=== PATIENT | female | born 1965 | race Caucasian/White ===

== ENCOUNTER → 2018-01-25 | Outpatient (CLI) | payer BC ==
--- NOTE | 2018-01-25 09:46 | MR ---
EXAMINATION TYPE: MR lumbar spine wo con DATE OF EXAM: 01/25/2018 COMPARISON: 03/18/2015 HISTORY: Low back pain TECHNIQUE: T1 and T2 axial and sagittal images of the lumbar spine are submitted. FINDINGS: There is artifact on the axial images which limits assessment of signal within the spinal c ord. Spinal cord appears to terminate at the level T12-L1. Small vertebral body hemangioma of L1 is m inimally noted. Sagittal images demonstrate no definite abnormal signal within the spinal cord. At T11-T12 there is degenerative disc disease and sagittal disc bulging. At T12-L1 there is no disc herniation or canal stenosis. At L1-2 there is At L1-L2 there is hypertrophic change of the facets. There is no disc herniation or canal stenosis. At L2-3 there is mild hypertrophic change of the facets. No canal stenosis or disc herniation. Neural foramina patent. At L3-4 there is hypertrophic change of the facets. No disc herniation or canal stenosis. No foramina l encroachment. Mild circumferential disc bulging. At L4-5 there is moderate degenerative disc disease with circumferential disc bulging and facet arthr opathy. No canal stenosis or focal herniation. Disc bulging slightly greater to the left. Findings st able. At L5-S1 there is degenerative disc disease with facet arthropathy. No disc herniation or canal steno sis. Neural foramina remain patent. There is an annular tear. Previously noted disc bulging has impro robert. IMPRESSION: 1. Moderate degenerative disc disease T11-T12, L4-5 and L5-S1. Mild progression at L4-5 relative to t he previous exam. 2. Multilevel facet arthropathy with no significant foraminal encroachment. 3. Mild circumferential disc bulging at multiple levels with no canal stenosis. The previously noted disc protrusion at L5-S1 appears improved relative to the previous exam.
--- NOTE | 2018-01-25 10:07 | MR ---
EXAMINATION TYPE: MR brain wo/w con DATE OF EXAM: 01/25/2018 COMPARISON: 01/24/2015 HISTORY: Seizures TECHNIQUE: Multiplanar, multisequence images of the brain and brainstem is performed without and with IV contras t, utilizing 7 mL intravenous Gadavist . FINDINGS: There is a mixed area of abnormal signal involving the left frontal lobe measuring approximately 2 cm in greatest axis. It does appear to be faint linear enhancement internally. No midline shift. Periventricular abnormal signal in the white matter seen with multiple focal areas of abnormal signal totally in number of 15. No lesions perpendicular to ventricular system. No enhancing lesions. No callosal lesions. Mild generalized degenerative change. Craniocervical junction is maintained. Sella turcica has a normal appearance. There are changes of ch ronic sinusitis. Punctate areas of abnormal signal involving the basal ganglia most likely related to prominent Vircho w-Jered spaces. Tiny lacunar remote infarctions not excluded. Physician's office immediately notified of findings by telephone. IMPRESSION: 1. There is a 2 cm left frontal mixed signal intensity lesion with very minimal surrounding edema. Pa ttern is most typical of a 2 cm intraparenchymal hemorrhage. The chronicity is likely subacute . Ther e is some very minimal central enhancement. Most likely related to a intraparenchymal hemorrhage. Hem orrhagic neoplasm not entirely excluded but felt less likely. Follow to resolution to exclude other e tiologies including hemorrhagic neoplasm. 2. Degenerative and nonspecific white matter changes.
== END | disposition home or self-care (01) ==
LOC: RADMRIMAIN 08:11
PROVIDERS: ATTEND Psychiatry & Neurology Neurology
DX: M51.26 Other intervertebral disc displacement, lumbar region (principal); M51.37 Other intervertebral disc degeneration, lumbosacral region; M46.87 Other specified inflammatory spondylopathies, lumbosacral region; G93.9 Disorder of brain, unspecified; G31.9 Degenerative disease of nervous system, unspecified
CPT/HCPCS: 70553; 72148; A9581

== ENCOUNTER → 2018-01-25 | Outpatient (CLI) | payer BC ==
--- NOTE | 2018-01-25 11:45 | CT ---
EXAMINATION TYPE: CT brain wo con DATE OF EXAM: 01/25/2018 COMPARISON: 01/24/2015 HISTORY: Intraparenchymal hemorrhage CT DLP: 999.80 mGycm. Automated Exposure Control for Dose Reduction was Utilized. TECHNIQUE: CT scan of the head is performed without contrast. FINDINGS: There is a focal area of hypointensity within the left frontal lobe with no focal intracran ial hemorrhage. Slight hyperattenuation peripherally relates to apposition of the gyri as there is ma ss effect with sulcal effacement. One corresponded to the MRI finding this raises suspicion for a vas cular anomaly such as developmental venous anomaly or arterial vascular malformation. This does not a ppear to be present on the exam of 01/24/2015 No suspicious extra-axial fluid collection. Old lacunar injury prominent perivascular spaces seen at the level of the right inferior basal ganglia. The ventr icles and sulci are within normal limits in size. The globes are intact and the visualized sinuses a re clear. IMPRESSION: The previously seen left frontal lobe subcortical abnormality on the prior MRI demonstrat es no acute intracranial hemorrhage and is suspicious for vascular anomaly such as a developmental ve nous anomaly or arterial vascular malformation.
== END | disposition home or self-care (01) ==
LOC: RADCTMAIN 11:01
PROVIDERS: ATTEND Psychiatry & Neurology Pain Medicine
DX: I61.8 Other nontraumatic intracerebral hemorrhage (principal)
CPT/HCPCS: 70450

== ENCOUNTER 2018-07-29 07:44 | Emergency (ER) | payer BC ==
--- NOTE | 2018-07-29 08:05 | ED ---
General Adult HPI - General Chief complaint: Neuro Symptoms/Deficit Stated complaint: blurred vision, headache Time Seen by Provider: 07/29/18 07:55 Source: patient, RN notes reviewed, old records reviewed Mode of arrival: wheelchair Limitations: no limitations - History of Present Illness Initial comments: 52-year-old female presenting for evaluation of left occipital headache and double vision. Patient has history of intracranial hemorrhage and ruptured aneurysm. This occurred approximately one year ago. She states her symptoms today are similar to her previous hemorrhagic stroke. Patient is not on any blood thinners, no aspirin. She had no surgical intervention for her previous CVA, she states it resolves without treatment. Symptoms began at approximately 3:30 AM this morning. She was evaluated at 8 AM. She waited until her awoke to come to the emergency department. She also reports some gait instability. Denies any focal numbness or weakness. Double vision depends on her angle of vision. And she is complaining of moderate to severe left occipital headache. - Related Data Home Medications Medication Instructions Recorded Confirmed Cholecalciferol [Vitamin D3] 1,000 unit PO DAILY 06/19/14 07/29/18 traMADol HCL [Ultram] 50 mg PO Q6HR PRN 08/22/16 07/29/18 Acetaminophen [Tylenol] 500 mg PO Q4-6H PRN 07/29/18 07/29/18 Ascorbic Acid [Vitamin C] 500 mg PO DAILY 07/29/18 07/29/18 Lacosamide [Vimpat] 200 mg PO DAILY 07/29/18 07/29/18 Magnesium Oxide [Cramer] 500 mg PO DAILY 07/29/18 07/29/18 Multivit-Min/Iron/Folic/Lutein 1 tab PO DAILY 07/29/18 07/29/18 [Centrum Silver Women Tablet] Olopatadine HCl 1 - 2 drop BOTH EYES Q8H 07/29/18 07/29/18 Topiramate [Topamax] 25 mg PO DAILY 07/29/18 07/29/18 Previous Rx's Medication Instructions Recorded Pantoprazole [Protonix] 40 mg PO DAILY #30 tablet. 01/27/16 Allergies Allergy/AdvReac Type Severity Reaction Status Date / Time No Known Allergies Allergy Verified 07/29/18 11:26 Review of Systems ROS Statement: Those systems with pertinent positive or pertinent negative responses have been documented in the HPI. ROS Other: All systems not noted in ROS Statement are negative. Past Medical History Past Medical History: Asthma, CVA/TIA, Hypertension, Pneumonia Additional Past Medical History / Comment(s): 01-22-16 C/O SKIN DISCOLORATION( JAUNDICE),ABD PAIN/DISTENTION, LEG EDEMA AND 20 POUND WT GAIN IN 2 WEEKS.CLINICAL IMPRESSION :ACUTE LIVER FAILURE. OTHER PAST MEDICAL HX INCLUSED UTI'S,ARTHRITIS, KIDNEY STONES ,OCC HEART BURN,IN AUG 2015 WENT TO [facility] C/O CHEST PAIN-TESTING IN EC NEG.SINUS PROBLES, HEMORROIDS/CONSTIPATION-LAST BM TODAY(01-22-16 SMALL HARD STATED HAD STREAK OF BLOOD ) History of Any Multi-Drug Resistant Organisms: None Reported Past Surgical History: Section, Tonsillectomy Additional Past Surgical History / Comment(s): X2 C-SECTIONS, WHEN AGE 7 HAD A SCOPE DONE -TOLD SHE HAD A NERVOUS STOMACH Past Anesthesia/Blood Transfusion Reactions: No Reported Reaction Additional Past Anesthesia/Blood Transfusion Reaction / Comment(s): CLAUSTERPHOBIA Past Psychological History: No Psychological Hx Reported Smoking Status: Former smoker Past Alcohol Use History: Daily Past Drug Use History: None Reported - Past Family History Father Additional Family Medical History / Comment(s): [employer] Mother Family Medical History: Coronary Artery Disease (CAD), Diabetes Mellitus, Hypertension, Pneumonia, Thyroid Disorder Additional Family Medical History / Comment(s): GOUT,X3 STENTS General Exam Limitations: no limitations General appearance: alert, in no apparent distress Head exam: Present: atraumatic, normocephalic Eye exam: Present: normal appearance, PERRL, EOMI, nystagmus (Mild horizontal nystagmus) Neck exam: Present: normal inspection Respiratory exam: Present: normal lung sounds bilaterally. Absent: respiratory distress Cardiovascular Exam: Present: regular rate, normal rhythm GI/Abdominal exam: Present: soft. Absent: distended, tenderness Extremities exam: Present: normal inspection, normal capillary refill. Absent: pedal edema Neurological exam: Present: alert, oriented X3, other (Finger-nose is normal bilaterally, normal tyna-bp-vssa, no ataxia. ). Absent: CN II-XII intact ( Patient is variable double vision, no appreciated palsy noted in the extraocular muscles.), motor sensory deficit Psychiatric exam: Present: normal affect, normal mood Skin exam: Present: warm, dry, intact. Absent: cyanosis, diaphoretic Course Vital Signs 07/29/18 07/29/18 07/29/18 07:46 09:00 09:55 Temperature 98.0 F Pulse Rate 104 H 92 96 Respiratory 20 18 18 Rate Blood Pressure 174/109 142/91 133/85 O2 Sat by Pulse 97 97 97 Oximetry 07/29/18 11:42 Temperature Pulse Rate 90 Respiratory 16 Rate Blood Pressure 118/70 O2 Sat by Pulse 96 Oximetry EKG Findings - EKG Comments: EKG Findings:: EKG: Sinus tachycardia, rate of 102, W[place] interval 170, QRS duration 92, QT 360, QTC 469 Medical Decision Making - Medical Decision Making 52-year-old female presenting with headache, and double vision. On exam patient does not have any focal neurological findings. Her extraocular motions are intact. No cranial nerve palsy. Given the patient's history, head CT is obtained which shows a left frontal abnormality which was seen on previous imaging. No hemorrhage. CT angiography is obtained with no acute abnormality. CBC within normal limits, CMP does reveal some hypokalemia which is replaced in the emergency department. Patient has chronic hyperbilirubinemia which is improved from baseline. Case discussed with the patient's neurologist who is familiar with the patient Dr. Masterson, he believes visual disturbances may be related to headache. Recommends headache treatment. Patient is given headache cocktail in the emergency department with improvement in her headache, headache resolved on reevaluation, vision is normal. She is reevaluated, neurologic exam remains nonfocal, she has normal balance, no ataxia, Romberg is negative. She feels comfortable with discharge. She will follow up with neurology within the next week. Return with worsening or changing symptoms. - Lab Data Result diagrams: 07/29/18 08:07 07/29/18 08:07 Lab Results 07/29/18 07/29/18 07/29/18 Range/Units 08:07 08:07 08:07 WBC 5.8 (3.8-10.6) k/uL RBC 4.27 (3.80-5.40) m/uL Hgb 14.9 (11.4-16.0) gm/dL Hct 43.0 (34.0-46.0) % MCV 100.8 H (80.0-100.0) fL MCH 34.9 (25.0-35.0) pg MCHC 34.6 (31.0-37.0) g/dL RDW 14.7 (11.5-15.5) % Plt Count 77 L (150-450) k/uL Neutrophils % (Manual) 50 % Lymphocytes % (Manual) 34 % Monocytes % (Manual) 12 % Eosinophils % (Manual) 4 % Neutrophils # (Manual) 2.90 (1.3-7.7) k/uL Lymphocytes # (Manual) 1.97 (1.0-4.8) k/uL Monocytes # (Manual) 0.70 (0-1.0) k/uL Eosinophils # (Manual) 0.23 (0-0.7) k/uL Nucleated RBCs 0 (0-0) /100 WBC Manual Slide Review Performed Poikilocytosis (manual Present Macrocytosis Slight PT (9.0-12.0) sec INR (<1.2) APTT (22.0-30.0) sec Sodium 145 (137-145) mmol/L Potassium 3.1 L (3.5-5.1) mmol/L Chloride 110 H (98-107) mmol/L Carbon Dioxide 25 (22-30) mmol/L Anion Gap 10 mmol/L BUN 8 (7-17) mg/dL Creatinine 0.59 (0.52-1.04) mg/dL Est GFR (CKD-EPI)AfAm >90 (>60 ml/min/1.73 sqM) Est GFR (CKD-EPI)NonAf >90 (>60 ml/min/1.73 sqM) Glucose 97 (74-99) mg/dL Calcium 8.4 (8.4-10.2) mg/dL Magnesium (1.6-2.3) mg/dL Total Bilirubin 4.9 H (0.2-1.3) mg/dL AST 125 H (14-36) U/L ALT 47 (9-52) U/L Alkaline Phosphatase 225 H (38-126) U/L Total Creatine Kinase 95 (30-135) U/L CK-MB (CK-2) 1.8 (0.0-2.4) ng/mL CK-MB (CK-2) Rel Index 1.9 Troponin I 0.014 (0.000-0.034) ng/mL Total Protein 6.9 (6.3-8.2) g/dL Albumin 3.4 L (3.5-5.0) g/dL 07/29/18 07/29/18 Range/Units 08:07 08:07 WBC (3.8-10.6) k/uL RBC (3.80-5.40) m/uL Hgb (11.4-16.0) gm/dL Hct (34.0-46.0) % MCV (80.0-100.0) fL MCH (25.0-35.0) pg MCHC (31.0-37.0) g/dL RDW (11.5-15.5) % Plt Count (150-450) k/uL Neutrophils % (Manual) % Lymphocytes % (Manual) % Monocytes % (Manual) % Eosinophils % (Manual) % Neutrophils # (Manual) (1.3-7.7) k/uL Lymphocytes # (Manual) (1.0-4.8) k/uL Monocytes # (Manual) (0-1.0) k/uL Eosinophils # (Manual) (0-0.7) k/uL Nucleated RBCs (0-0) /100 WBC Manual Slide Review Poikilocytosis (manual Macrocytosis PT 13.8 H (9.0-12.0) sec INR 1.5 H (<1.2) APTT 28.9 (22.0-30.0) sec Sodium (137-145) mmol/L Potassium (3.5-5.1) mmol/L Chloride (98-107) mmol/L Carbon Dioxide (22-30) mmol/L Anion Gap mmol/L BUN (7-17) mg/dL Creatinine (0.52-1.04) mg/dL Est GFR (CKD-EPI)AfAm (>60 ml/min/1.73 sqM) Est GFR (CKD-EPI)NonAf (>60 ml/min/1.73 sqM) Glucose (74-99) mg/dL Calcium (8.4-10.2) mg/dL Magnesium 1.6 (1.6-2.3) mg/dL Total Bilirubin (0.2-1.3) mg/dL AST (14-36) U/L ALT (9-52) U/L Alkaline Phosphatase (38-126) U/L Total Creatine Kinase (30-135) U/L CK-MB (CK-2) (0.0-2.4) ng/mL CK-MB (CK-2) Rel Index Troponin I (0.000-0.034) ng/mL Total Protein (6.3-8.2) g/dL Albumin (3.5-5.0) g/dL Disposition Clinical Impression: Headache Disposition: HOME SELF-CARE Condition: Good Instructions: General Headache (ED) Is patient prescribed a controlled substance at d/c from ED?: No Referrals: Joe Murguia MD [Primary Care Provider] - 1-2 days Marshall Masterson MD [STAFF PHYSICIAN] - 1-2 days Time of Disposition: 11:58
[2018-07-29] MEDS ORDERED: MORPHINE SULFATE 4 MG/ML SYRINGE IVP STA ×2 (08:09→10:30)
[2018-07-29 08:31] LABS: HGB 14.9 gm/dL (11.4-16.0); MCH 34.9 pg (25.0-35.0); MCHC 34.6 g/dL (31.0-37.0); MCV 100.8 fL (80.0-100.0); Macrocytosis Slight; Mean Platelet Volume 7.2; RBC 4.27 m/uL (3.80-5.40); RDW 14.7 % (11.5-15.5); WBC 5.8 k/uL (3.8-10.6)
[2018-07-29 08:33] LABS: ALT 47 U/L (9-52); AST 125 U/L (14-36); Albumin 3.4 g/dL (3.5-5.0); Alkaline Phosphatase 225 U/L (38-126); Anion Gap 10 mmol/L; Blood Urea Nitrogen 8 mg/dL (7-17); Calcium 8.4 mg/dL (8.4-10.2); Carbon Dioxide 25 mmol/L (22-30); Chloride 110 mmol/L (98-107); Glucose 97 mg/dL (74-99); Potassium 3.1 mmol/L (3.5-5.1); Sodium 145 mmol/L (137-145); Total Bilirubin 4.9 mg/dL (0.2-1.3); Total Protein 6.9 g/dL (6.3-8.2)
[2018-07-29 08:42] LABS: INR 1.5 (<1.2); Partial Thromboplastin Time 28.9 sec (22.0-30.0); Prothrombin Time 13.8 sec (9.0-12.0)
[2018-07-29 08:57] LABS: Creatine Kinase MB 1.8 ng/mL (0.0-2.4); Troponin I 0.014 ng/mL (0.000-0.034)
[2018-07-29 09:04] LABS: Eosinophils # (M) 0.23 k/uL (0-0.7); Lymphocytes # (M) 1.97 k/uL (1.0-4.8); Neutrophils % (M) 50 %; Nucleated Red Blood Cells 0 /100 WBC (0-0); Platelet Count 77 k/uL (150-450); Total Cells Counted 100
[2018-07-29 09:05] LABS: Poikilocytosis (M) Present
--- NOTE | 2018-07-29 09:05 | CT ---
EXAMINATION TYPE: CT brain wo con DATE OF EXAM: 07/29/2018 COMPARISON: Previous study dated 01/25/2018 HISTORY: Blurred vision, Headache CT DLP: 1090.4 mGycm Automated exposure control for dose reduction was used. FINDINGS: Left frontal hypointensity slightly more prominent on today's examination. Central structures are midline. There is no evidence of hydrocephalus. No acute focal lesion, mass ef fect or midline shift is seen. I do not see evidence of intracranial blood. Visualized portions of the paranasal sinuses and mastoids are clear. The bony calvarium is intact. IMPRESSION: 1. NO ACUTE INTRACRANIAL ABNORMALITY. 2. PATIENT'S LEFT FRONTAL ABNORMALITY IS MORE PROMINENT ON TODAY'S EXAMINATION. A FOLLOW-UP MR WOULD BE SUGGESTED.
[2018-07-29] MEDS ORDERED: POTASSIUM CHLORIDE ER 20 MEQ TAB.ER PO STA (09:09)
--- NOTE | 2018-07-29 09:41 | XR ---
EXAMINATION TYPE: XR chest 2V DATE OF EXAM: 07/29/2018 HISTORY: altered mental status. REFERENCE: Previous study dated 08/22/2016. FINDINGS: The lungs remain clear. Pleural spaces are clear. The heart is not enlarged. IMPRESSION: NO ACTIVE INTRATHORACIC DISEASE.
--- NOTE | 2018-07-29 09:47 | CT ---
EXAMINATION TYPE: CT angio head neck DATE OF EXAM: 07/29/2018 HISTORY: Blurred vision, headache COMPARISON: None. CT DLP: 246.3 mGycm. Automated Exposure Control for Dose Reduction was Utilized. TECHNIQUE: CTA scan of the neck is performed with IV Contrast, patient injected with 65 mL of Isovue 370, axial images are obtained, coronal and sagittal reformatted images are reviewed. Three-D recons tructed images are created on an independent workstation and reviewed. FINDINGS: There are mild emphysematous changes throughout the visualized portions of the lungs. Prevertebral soft tissues are normal. Vertebral body height and alignment are maintained. Atlantoaxial relationships are normal. There is d egenerative disc disease and hypertrophic spondylosis at C4-5, C5-6 and C6-7 and to a lesser extent a t C3-4. There is mild uncovertebral joint disease at these levels. The facets are unremarkable. No de finite protrusion is seen. There is a normal origin of the great vessels. The right vertebral artery is dominant. There is no significant carotid stenosis. CTA of the [place] is unremarkable. There is normal arborization of the middle cerebral julissa mati. Both anterior cerebral arteries are patent. The posterior circulation is a normal appearance. N o sizable aneurysm is seen. IMPRESSION: 1. No significant carotid stenosis. 2. Normal CTA of the [place].
[2018-07-29] MEDS ORDERED: METOCLOPRAMIDE 5 MG/ML 2 ML VIAL IVP STA (10:30)
[2018-07-29] MEDS ORDERED: diphenhydrAMINE 50 MG/ML 1 ML VIAL IVP STA (10:30)
[2018-07-29] MEDS ORDERED: SODIUM CHLORIDE 0.9% 500 ML IV ONE (10:31)
[2018-07-29 12:10] VITALS: BP 125/74; PULSE 87; RESP 18; TEMP 97.4
== END 2018-07-29 12:10 | disposition home or self-care (01) ==
LOC: EC 07:44
DX: R51 Headache (principal); H53.2 Diplopia; R93.8 Abnormal findings on diagnostic imaging of other specified body structures; E87.6 Hypokalemia; E80.6 Other disorders of bilirubin metabolism; H55.00 Unspecified nystagmus; R26.89 Other abnormalities of gait and mobility; Z87.891 Personal history of nicotine dependence; Z79.899 Other long term (current) drug therapy; Z86.73 Personal history of transient ischemic attack (TIA), and cerebral infarction without residual deficits; Z83.518 Family history of other specified eye disorder
CPT/HCPCS: 36415; 93005; 80053; 82550; 82553; 83735; 84484; 85025; 85610; 85730; 71046; 70496; 70450; 70498; 99285; 96374; 96375 ×2; 96376; J2270; J1200; J2765; Q9967

== ENCOUNTER → 2018-09-13 | Outpatient (CLI) | payer BC ==
--- NOTE | 2018-09-14 08:00 | MR ---
EXAMINATION TYPE: MR brain wo/w con DATE OF EXAM: 09/13/2018 COMPARISON: Prior MRI brain January 25, 2018. CT brain January 26, 2018 and older studies. HISTORY: Neoplasm of unspecified behavior of brain per order. Symptoms of left-sided hearing loss per patient. TECHNIQUE: Multiplanar, multisequence images of the brain and brainstem is performed without and with IV contras t, utilizing 7 mL intravenous Gadavist . FINDINGS: Diffusion weighted images demonstrate no evidence of a recent infarct or other diffusion ab normality. There is no significant extra-axial fluid collection. The ventricular system and cistern al spaces are normal in size and appearance. The brain volume is age appropriate. Some scattered foc i of T2 hyperintensity throughout the white matter remain present. Approximately 10-15 scattered smal l lesions are seen. At level of left frontal lobe there is persistent area of focal volume loss or en cephalomalacia with rim T2 hypointensity and diminished enhancement on current study, small linear fo cus remains present along posterior aspect axial image 18. Area of concern measures roughly 2.0 x 1.0 cm axial image 19. Midline structures redemonstrate normal morphology. The craniocervical junction appears within elinor l limits. Post contrast images demonstrate no new areas of abnormal enhancement. The dural venous si nuses appear patent. The visualized sinuses are clear and the globes are intact. No suspicious opacit y bilateral mastoid air cells is present. IMPRESSION: Area of concern left frontal lobe favors subacute on chronic resolving hemorrhagic infarc tion or encephalomalacia. Background mild chronic small vessel ischemic change redemonstrated. Lack o f surrounding edema and diminishing enhancement makes parenchymal neoplasm much less likely.
== END | disposition home or self-care (01) ==
LOC: RADMRIMAIN 14:40
PROVIDERS: ATTEND Psychiatry & Neurology Pain Medicine
DX: D49.6 Neoplasm of unspecified behavior of brain (principal); I67.82 Cerebral ischemia
CPT/HCPCS: 70553; A9585

== ENCOUNTER 2018-11-22 15:09 | Inpatient (IN) | payer BC ==
[2018-11-22] MEDS ORDERED: PANTOPRAZOLE 40 MG/10 ML VIAL IVP STA (15:59)
[2018-11-22] MEDS ORDERED: SODIUM CHLORIDE 0.9% 1,000 ML IV STA (15:59)
--- NOTE | 2018-11-22 16:31 | ED ---
GI Bleed HPI - General Chief complaint: GI Bleed Stated complaint: Abd Pain Time Seen by Provider: 11/22/18 15:23 Source: patient, EMS, RN notes reviewed Mode of arrival: EMS Limitations: no limitations - History of Present Illness Initial comments: This is a 52-year-old female with a history of alcoholism who was brought in by EMS for reported abdominal pain and lower GI bleeding. Additionally the patient was uncooperative would not answer questions and was very evasive she does appear to be intoxicated. No reports of trauma no reports of fevers chills nausea vomiting or sweats. Patient does admit to drinking 45 beers today. She states she does have a history of bleeding hemorrhoids no ulcers or anything else reports this time. MD complaint: blood on toilet paper - Related Data Home Medications Medication Instructions Recorded Confirmed Cholecalciferol [Vitamin D3] 1,000 unit PO DAILY 06/19/14 11/22/18 Lacosamide [Vimpat] 200 mg PO DAILY 07/29/18 11/22/18 Magnesium Oxide [Cramer] 500 mg PO DAILY 07/29/18 11/22/18 Multivit-Min/Iron/Folic/Lutein 1 tab PO DAILY 07/29/18 11/22/18 [Centrum Silver Women Tablet] Olopatadine HCl 1 - 2 drop BOTH EYES Q8H 07/29/18 11/22/18 Topiramate [Topamax] 25 mg PO DAILY 07/29/18 11/22/18 Atenolol 25 mg PO DAILY 11/22/18 11/22/18 Escitalopram [Lexapro] 20 mg PO DAILY 11/22/18 11/22/18 Previous Rx's Medication Instructions Recorded Pantoprazole [Protonix] 40 mg PO DAILY #30 tablet. 01/27/16 Allergies Allergy/AdvReac Type Severity Reaction Status Date / Time No Known Allergies Allergy Verified 11/22/18 15:49 Review of Systems ROS Statement: Those systems with pertinent positive or pertinent negative responses have been documented in the HPI. ROS Other: All systems not noted in ROS Statement are negative. Limitations: ROS unobtainable due to patients medical condition Past Medical History Past Medical History: Asthma, CVA/TIA, Hypertension, Pneumonia Additional Past Medical History / Comment(s): 01-22-16 C/O SKIN DISCOLORATION( JAUNDICE),ABD PAIN/DISTENTION, LEG EDEMA AND 20 POUND WT GAIN IN 2 WEEKS.CLINICAL IMPRESSION :ACUTE LIVER FAILURE. OTHER PAST MEDICAL HX INCLUSED UTI'S,ARTHRITIS, KIDNEY STONES ,OCC HEART BURN,IN AUG [address] [facility] C/O CHEST PAIN-TESTING IN EC NEG.SINUS PROBLES, HEMORROIDS/CONSTIPATION-LAST BM TODAY(3-17-16 SMALL HARD STATED HAD STREAK OF BLOOD ) History of Any Multi-Drug Resistant Organisms: None Reported Past Surgical History: Section, Tonsillectomy Additional Past Surgical History / Comment(s): X2 C-SECTIONS, WHEN AGE 7 HAD A SCOPE DONE -TOLD SHE HAD A NERVOUS STOMACH Past Anesthesia/Blood Transfusion Reactions: No Reported Reaction Additional Past Anesthesia/Blood Transfusion Reaction / Comment(s): CLAUSTERPHOBIA Past Psychological History: Anxiety Smoking Status: Former smoker Past Alcohol Use History: Daily Past Drug Use History: None Reported - Past Family History Father Additional Family Medical History / Comment(s): CORNEA TRANSPL[employer] Mother Family Medical History: Coronary Artery Disease (CAD), Diabetes Mellitus, Hypertension, Pneumonia, Thyroid Disorder Additional Family Medical History / Comment(s): GOUT,X3 STENTS General Exam - General Exam Comments Initial Comments: This is a well-developed well-nourished awake alert but lethargic female who does appear to be intoxicated and does have the smell of alcohol conjoiners on her breath Limitations: no limitations General appearance: alert, lethargic Head exam: Present: atraumatic, normocephalic, normal inspection Eye exam: Present: normal appearance, PERRL, EOMI. Absent: scleral icterus, conjunctival injection, periorbital swelling ENT exam: Present: mucous membranes dry Neck exam: Present: normal inspection. Absent: tenderness, meningismus, lymphadenopathy Respiratory exam: Present: normal lung sounds bilaterally. Absent: respiratory distress, wheezes, rales, rhonchi, stridor Cardiovascular Exam: Present: regular rate, normal rhythm, normal heart sounds. Absent: systolic murmur, diastolic murmur, rubs, gallop, clicks GI/Abdominal exam: Present: soft, normal bowel sounds. Absent: distended, tenderness, guarding, rebound, rigid Rectal exam: Present: heme (+) stool, hemorrhoids, other (Mild hemorrhoidal tenderness exam done with a female nurse and aid present) Extremities exam: Present: normal inspection, full ROM, normal capillary refill. Absent: tenderness, pedal edema, joint swelling, calf tenderness Back exam: Present: normal inspection Neurological exam: Present: alert, oriented X3, CN II-XII intact Psychiatric exam: Present: normal affect, normal mood Skin exam: Present: warm, dry, intact, normal color. Absent: rash Course Vital Signs 11/22/18 11/22/18 15:11 16:32 Temperature 98.1 F Pulse Rate 70 79 Respiratory 16 18 Rate Blood Pressure 132/91 107/69 O2 Sat by Pulse 99 98 Oximetry - Reevaluation(s) Reevaluation #1: 11/22/18 16:58 The patient is resting comfortably. Lab work is obtained the patient hemoglobin was within normal is her blood alcohol level is 358. Medical Decision Making - Medical Decision Making I did discuss the findings with Dr. Gibbons who is covering the hospitalist service patient be admitted for evaluation of rectal bleeding and acute alcohol intoxication. - Lab Data Result diagrams: 11/22/18 15:35 11/22/18 15:35 Lab Results 11/22/18 11/22/18 11/22/18 Range/Units 15:35 15:35 15:35 WBC 4.8 (3.8-10.6) k/uL RBC 3.97 (3.80-5.40) m/uL Hgb 14.2 (11.4-16.0) gm/dL Hct 44.1 (34.0-46.0) % MCV 111.0 H (80.0-100.0) fL MCH 35.8 H (25.0-35.0) pg MCHC 32.3 (31.0-37.0) g/dL RDW 14.5 (11.5-15.5) % Plt Count 54 L (150-450) k/uL PT (9.0-12.0) sec INR (<1.2) APTT (22.0-30.0) sec Sodium (137-145) mmol/L Potassium (3.5-5.1) mmol/L Chloride (98-107) mmol/L Carbon Dioxide (22-30) mmol/L Anion Gap mmol/L BUN (7-17) mg/dL Creatinine (0.52-1.04) mg/dL Est GFR (CKD-EPI)AfAm (>60 ml/min/1.73 sqM) Est GFR (CKD-EPI)NonAf (>60 ml/min/1.73 sqM) Glucose (74-99) mg/dL Calcium (8.4-10.2) mg/dL Magnesium (1.6-2.3) mg/dL Total Bilirubin (0.2-1.3) mg/dL AST (14-36) U/L ALT (9-52) U/L Alkaline Phosphatase (38-126) U/L Ammonia 39 H (<30) umol/L Total Creatine Kinase 61 (30-135) U/L Total Protein (6.3-8.2) g/dL Albumin (3.5-5.0) g/dL Lipase (23-300) U/L Stool Occult Blood (Negative) Serum Alcohol mg/dL 11/22/18 11/22/18 11/22/18 Range/Units 15:35 15:35 15:35 WBC (3.8-10.6) k/uL RBC (3.80-5.40) m/uL Hgb (11.4-16.0) gm/dL Hct (34.0-46.0) % MCV (80.0-100.0) fL MCH (25.0-35.0) pg MCHC (31.0-37.0) g/dL RDW (11.5-15.5) % Plt Count (150-450) k/uL PT 15.0 H (9.0-12.0) sec INR 1.5 H (<1.2) APTT 30.4 H (22.0-30.0) sec Sodium 149 H (137-145) mmol/L Potassium 4.0 (3.5-5.1) mmol/L Chloride 115 H (98-107) mmol/L Carbon Dioxide 26 (22-30) mmol/L Anion Gap 8 mmol/L BUN 9 (7-17) mg/dL Creatinine 0.65 (0.52-1.04) mg/dL Est GFR (CKD-EPI)AfAm >90 (>60 ml/min/1.73 sqM) Est GFR (CKD-EPI)NonAf >90 (>60 ml/min/1.73 sqM) Glucose 95 (74-99) mg/dL Calcium 8.6 (8.4-10.2) mg/dL Magnesium 1.8 (1.6-2.3) mg/dL Total Bilirubin 3.4 H (0.2-1.3) mg/dL AST 105 H (14-36) U/L ALT 39 (9-52) U/L Alkaline Phosphatase 155 H (38-126) U/L Ammonia (<30) umol/L Total Creatine Kinase (30-135) U/L Total Protein 6.4 (6.3-8.2) g/dL Albumin 3.2 L (3.5-5.0) g/dL Lipase 922 H (23-300) U/L Stool Occult Blood Positive H (Negative) Serum Alcohol 358 H* mg/dL - EKG Data -: EKG Interpreted by Me EKG shows normal: sinus rhythm (No sinus rhythm a 79. Interval 180 QRS duration 90 QT since QTC 400/[address]-T wave changes) - Radiology Data Radiology results: image reviewed (Imaging is pending) Disposition Clinical Impression: Hematochezia, Acute alcohol intoxication, Alcohol abuse Disposition: ADMITTED IP TO THIS HOSP Condition: Stable Referrals: Joe Murguia MD [Primary Care Provider] - 1-2 days
[2018-11-22 16:32] LABS: INR 1.5 (<1.2); Partial Thromboplastin Time 30.4 sec (22.0-30.0)
[2018-11-22 16:35] LABS: ALT 39 U/L (9-52); AST 105 U/L (14-36); Albumin 3.2 g/dL (3.5-5.0); Alkaline Phosphatase 155 U/L (38-126); Anion Gap 8 mmol/L; Blood Urea Nitrogen 9 mg/dL (7-17); Calcium 8.6 mg/dL (8.4-10.2); Carbon Dioxide 26 mmol/L (22-30); Chloride 115 mmol/L (98-107); Glucose 95 mg/dL (74-99); Lipase 922 U/L (23-300); Magnesium 1.8 mg/dL (1.6-2.3); Sodium 149 mmol/L (137-145); Total Bilirubin 3.4 mg/dL (0.2-1.3); Total Protein 6.4 g/dL (6.3-8.2)
[2018-11-22 16:39] LABS: HCT 44.1 % (34.0-46.0); HGB 14.2 gm/dL (11.4-16.0); MCH 35.8 pg (25.0-35.0); MCHC 32.3 g/dL (31.0-37.0); Macrocytosis Marked; Mean Platelet Volume 7.6; RBC 3.97 m/uL (3.80-5.40); RDW 14.5 % (11.5-15.5); WBC 4.8 k/uL (3.8-10.6)
[2018-11-22 16:48] LABS: Alcohol 358 mg/dL
[2018-11-22] MEDS ORDERED: NALOXONE 0.4 MG/ML 1 ML VIAL IV PRN (17:00)
[2018-11-22 17:01] LABS: Creatine Kinase MB 1.2 ng/mL (0.0-2.4); Troponin I 0.013 ng/mL (0.000-0.034)
[2018-11-22 17:02] LABS: Lymphocytes # (M) 1.87 k/uL (1.0-4.8); Monocytes # (M) 0.48 k/uL (0-1.0); Neutrophils # (M) 2.35 k/uL (1.3-7.7); Neutrophils % (M) 49 %; Nucleated Red Blood Cells 0 /100 WBC (0-0); Platelet Count 54 k/uL (150-450); Total Cells Counted 100
[2018-11-22] MEDS ORDERED: LORazepam 2 MG/ML INJ IV PRN ×3 (17:06)
[2018-11-22] MEDS ORDERED: THIAMINE 100 MG/ML 2 ML VIAL IM STA (17:06)
--- NOTE | 2018-11-22 17:13 | XR ---
EXAMINATION TYPE: XR KUB DATE OF EXAM: 11/22/2018 COMPARISON: 06/19/2014 HISTORY: Abdominal pain TECHNIQUE: 2 views upright FINDINGS: There is no sign of intestinal obstruction or pneumoperitoneum. Fecal pattern is normal. Th ere is probably a calcified uterine fibroid. There are no pathologic calcifications over the kidneys. Lung bases are clear. IMPRESSION: Nonacute abdomen. No adverse change.
--- NOTE | 2018-11-22 17:14 | XR ---
EXAMINATION TYPE: XR chest 2V DATE OF EXAM: 11/22/2018 COMPARISON: 07/29/2018 HISTORY: Abdominal pain chest pain TECHNIQUE: Frontal and lateral views of the chest are obtained. FINDINGS: Heart and mediastinum are normal. Lungs are clear. Diaphragm is normal. Bony thorax is int act. IMPRESSION: Normal chest. No change.
[2018-11-22] MEDS: SODIUM CHLORIDE 0.9% 1,000 ML IV SCH (18:17)
[2018-11-22] MEDS: LACOSAMIDE 150 MG TABLET PO SCH (21:10)
[2018-11-22] MEDS: TOPIRAMATE 25 MG TAB PO SCH (21:10)
[2018-11-22] MEDS: LACOSAMIDE 50 MG TABLET PO SCH (21:10)
[2018-11-22] MEDS: THIAMINE 100 MG in SODIUM CHLORIDE 0.9% 100 ML IVPB SCH (22:12)
[2018-11-22] MEDS: LACTULOSE 20 GM/30 ML CUP PO SCH (23:12)
[2018-11-22] MEDS: PHYTONADIONE ORAL 5 MG/5 ML ORAL.SYRG PO SCH (23:21)
--- NOTE | 2018-11-22 23:45 | HP ---
HISTORY AND PHYSICAL DATE OF ADMISSION AND SERVICE: 11/22/2018. PRESENTING COMPLAINT: Falling. Confusion. HISTORY OF PRESENTING COMPLAINT: This is a 52-year-old patient who follows with Dr. Murguia. Chronic stable medical conditions include hypertension, GERD, anxiety. Patient was last seen by me back in 2016 in January, then diagnosed to have cirrhosis secondary to alcoholism, ascites, hepatic coagulopathy. Patient now presents with falling, unsteady for a few days; also complaining of double vision and intermittent confusion. The patient does admit to drinking on and off in variable amounts. Patient presented from the ER. Denies any fever or chills. Slight cough. No shortness of breath. REVIEW OF SYSTEMS: CONSTITUTIONAL: Tired. Decreased appetite. HEENT: None. RESPIRATORY: Some shortness of breath. CARDIOVASCULAR: None. GASTROINTESTINAL: Patient had some fresh blood per rectum. MUSCULOSKELETAL: None. DERMATOLOGICAL: None. HEMATOLOGICAL: None. LYMPHATICS: None. PSYCHIATRY: Some confusion. NEUROLOGICAL: Unsteady gait. Double vision. PAST MEDICAL HISTORY: 1. Functional stroke. 2. Hypertension. 3. Jaundice. 4. Leg edema and weight gain. 5. Kidney stones. 6. Heartburn. PAST SURGICAL HISTORY: 1. . 2. Tonsillectomy. PSYCH HISTORY: Claustrophobia and anxiety. SOCIAL HISTORY: Patient has been drinking on and off for a long time. FAMILY HISTORY: Coronary artery disease, diabetes, hypertension, thyroid disorder. HOME MEDICATIONS: 1. Topamax 25 mg b.i.d. 2. Vimpat 200 mg b.i.d. 3. Lexapro 20 mg p.o. daily. 4. Vitamin D3 1000 units p.o. daily. 5. Protonix 40 mg p.o. daily. 6. Olopatadine 1-2 drops both eyes q.8. 7. Atenolol 25 mg p.o. daily. 8. Centrum Silver 1 tablet p.o. daily. ALLERGIES: NONE. PHYSICAL EXAMINATION: GENERAL APPEARANCE: BMI 27.5. Lying in bed. Tired-appearing. EYES: Pupils equal. Conjunctival icterus. HEENT: External appearance of nose and ears normal. Oral cavity normal. SKIN: Spider nevi in the upper chest wall. NECK: JVD not raised. Mass not palpable. RESPIRATORY: Effort normal. LUNGS: Decreased breath sounds. CARDIOVASCULAR: First and second sounds normal. Mild edema. ABDOMEN: Minimal distention. Soft. Liver and spleen not palpable. LYMPHATIC: No lymph node palpable in neck or axillae. PSYCHIATRY: Patient is somewhat lethargic but able to answer questions. Patient has a hepatic flap. INVESTIGATIONS: White count 4.8, hemoglobin 14.2, platelets 54. Pro time 15. Potassium 4, BUN 9, creatinine 0.65, AST 105, ammonia 39, albumin 3.2, lipase 922. Stool occult positive. Serum alcohol positive; 358. ASSESSMENT: 1. This is a patient who has been drinking on and off for a long time; has been falling at home for some time, having double vision, unsteady gait, some confusion. Triad is compatible with Wernicke's encephalopathy from thiamine deficiency secondary to alcoholism. 2. Chronic alcoholism with liver disease/cirrhosis. 3. Acute alcohol intoxication. Serum alcohol was 358 on presentation. 4. Acute gastrointestinal bleed; either could be a variceal upper bleed and/or could be hemorrhoidal fresh blood, also which can be from the lower varices. 5. Hypoalbuminemia from chronic liver disease. 6. Hyperbilirubinemia. 7. Coagulopathy secondary to chronic liver disease suggestive of cirrhosis. 8. Thrombocytopenia due to the chronic liver disease. 9. Essential hypertension. 10.Gastroesophageal reflux disease. 11.Chronic nicotine dependence. Patient is a cigarette smoker. PLAN: The patient will be started on IV thiamine 100 mg twice a day. Will also check patient's vitamin B12 level. For portal hypertension, we will put the patient on Lopressor 12.5 twice a day. GI was consulted with a view to endoscopy. The patient also will be put on bronchodilators. We will use a CIWA scale. Patient is rather unsteady, unstable. The patient will need at least 2 nights in the hospital and will be admitted for inpatient. Will also give patient vitamin K supplementation by mouth. Hold off any DVT prophylaxis in view of already low platelets. MMODL / IJN: [id number] /
[2018-11-23] MEDS: SODIUM CHLORIDE 0.9% 1,000 ML IV SCH ×2 (05:28→17:45)
[2018-11-23] MEDS ORDERED: CHOLECALCIFEROL 1,000 UNIT TAB PO SCH (09:00)
[2018-11-23] MEDS: THIAMINE 100 MG in SODIUM CHLORIDE 0.9% 100 ML IVPB SCH ×2 (09:19→21:05)
[2018-11-23] MEDS: LACOSAMIDE 150 MG TABLET PO SCH ×2 (09:37→21:06)
[2018-11-23] MEDS: LACOSAMIDE 50 MG TABLET PO SCH ×2 (09:37→21:06)
[2018-11-23] MEDS: LACTULOSE 20 GM/30 ML CUP PO SCH ×2 (09:38→21:06)
[2018-11-23] MEDS: ESCITALOPRAM 20 MG TAB PO SCH (09:38)
[2018-11-23] MEDS: TOPIRAMATE 25 MG TAB PO SCH ×2 (09:38→21:06)
[2018-11-23] MEDS: MAGNESIUM OXIDE 400 MG TAB PO SCH (09:38)
[2018-11-23 09:40] LABS: Basophils % (A) 0 %; Eosinophils # (A) 0.1 k/uL (0-0.7); Eosinophils % (A) 2 %; HCT 39.4 % (34.0-46.0); HGB 12.3 gm/dL (11.4-16.0); Lymphocytes # (A) 1.1 k/uL (1.0-4.8); Lymphocytes % (A) 33 %; MCH 35.4 pg (25.0-35.0); MCHC 31.1 g/dL (31.0-37.0); MCV 113.9 fL (80.0-100.0); Macrocytosis Marked; Mean Platelet Volume 7.7; Monocytes # (A) 0.2 k/uL (0-1.0); Monocytes % (A) 7 %; Neutrophils # (A) 1.8 k/uL (1.3-7.7); Neutrophils % (A) 54 %; RBC 3.46 m/uL (3.80-5.40); RDW 14.4 % (11.5-15.5); WBC 3.2 k/uL (3.8-10.6)
[2018-11-23 09:48] LABS: Platelet Count 52 k/uL (150-450)
[2018-11-23 10:00] LABS: Anion Gap 5 mmol/L; Blood Urea Nitrogen 8 mg/dL (7-17); Calcium 7.6 mg/dL (8.4-10.2); Carbon Dioxide 25 mmol/L (22-30); Chloride 113 mmol/L (98-107); Glucose 92 mg/dL (74-99); Potassium 3.7 mmol/L (3.5-5.1); Sodium 143 mmol/L (137-145)
[2018-11-23] MEDS: PANTOPRAZOLE 40 MG/10 ML VIAL IV SCH ×2 (10:05→21:06)
--- NOTE | 2018-11-23 10:29 | P.CONS ---
History of Present Illness - Reason for Consult Consult date: 11/23/18 GI bleed Requesting physician: Javier Gibbons - Chief Complaint Abdominal pain black colored bowel movements - History of Present Illness 52-year-old female with a history of long-standing EtOH abuse drinks bourbon on a daily basis, underlying alcohol liver disease cirrhosis, ascites, portal hypertension, paracentesis, pancreatitis, admitted with upper abdominal pain and mixed red black colored bowel movements 1 day. Denies gross hematemesis or hematochezia. No history of upper GI bleed, EGD or colonoscopy. No aspirin or NSAIDs. Afebrile. White count 4.8. Hemoglobin 14.2 presently 12.3. Platelet 52,000. INR 1.5. BUN 9. Creatinine 0.6. Total bilirubin 3.4. AST 105. ALT 39. AP 155. Ammonia 39. Serum alcohol 358. Lipase 922. FOBT positive. Denies aspirin or NSAIDs. No weight loss. Review of Systems Constitutional: Denies fever, chills, sweats, weight gain, or loss. HEENT: Negative for migraines, blurred vision or loss, earaches, drainage, tinnitus, oral mucosal lesions, dysphagia, or odynophagia. CARDIAC: Negative for chest pain, arrhythmias, or palpitation. RESPIRATORY: Negative for shortness of breath, hemoptysis, cough, or sputum production. GI: See HPI for pertinent findings. : Negative for hematuria, urgency, frequency, polyuria, or dysuria. GYNc: Denies possibility of . Negative vaginal discharge. MUSCULOSKELETAL: Negative for muscle aches, swelling, arthritis, and arthralgias. NEUROLOGIC: Negative for stroke or TIA. ENDOCRINE: Negative for thyroid problems. SKIN: Negative for rash or itching. PSYCHIATRIC: Negative history for depression and anxiety Past Medical History Past Medical History: Asthma, CVA/TIA, Hypertension, Pneumonia Additional Past Medical History / Comment(s): 01-22-16 C/O SKIN DISCOLORATION( JAUNDICE),ABD PAIN/DISTENTION, LEG EDEMA AND 20 POUND WT GAIN IN 2 WEEKS.CLINICAL IMPRESSION :ACUTE LIVER FAILURE. OTHER PAST MEDICAL HX INCLUSED UTI'S,ARTHRITIS, KIDNEY STONES ,OCC HEART BURN,IN AUG 2015 WENT TO [facility] C/O CHEST PAIN-TESTING IN EC NEG.SINUS PROBLES, HEMORROIDS/CONSTIPATION-LAST BM TODAY(01-22-16 SMALL HARD STATED HAD STREAK OF BLOOD ) History of Any Multi-Drug Resistant Organisms: None Reported Past Surgical History: Section, Tonsillectomy Additional Past Surgical History / Comment(s): X2 C-SECTIONS, WHEN AGE 7 HAD A SCOPE DONE -TOLD SHE HAD A NERVOUS STOMACH Past Anesthesia/Blood Transfusion Reactions: No Reported Reaction Additional Past Anesthesia/Blood Transfusion Reaction / Comm: CLAUSTERPHOBIA Past Psychological History: Anxiety Smoking Status: Former smoker Past Alcohol Use History: Daily Additional Past Alcohol Use History / Comment(s): STARTED SMOKING AGE 14, SMOKED HERE AND THERE, QUIT BY AGE 20, STATED QUIT DRINKING 3 MONTHS AGO BUT BEFORE THAT WAS DRINING 2 DRINKS PER DAY(VODKA). Past Drug Use History: None Reported Additional Drug Use History / Comment(s): DENIES ANY DRUG USE,NO IV DRUG USE - Past Family History Father Additional Family Medical History / Comment(s): CORNEA TRANSPLANT Mother Family Medical History: Coronary Artery Disease (CAD), Diabetes Mellitus, Hypertension, Pneumonia, Thyroid Disorder Additional Family Medical History / Comment(s): GOUT,X3 STENTS Medications and Allergies Home Medications Medication Instructions Recorded Confirmed Type Cholecalciferol [Vitamin D3] 1,000 unit PO DAILY 06/19/14 11/22/18 History Pantoprazole [Protonix] 40 mg PO DAILY #30 tablet. 01/27/16 11/22/18 Rx Lacosamide [Vimpat] 200 mg PO BID 07/29/18 11/22/18 History Magnesium Oxide [Cramer] 500 mg PO DAILY 07/29/18 11/22/18 History Multivit-Min/Iron/Folic/Lutein 1 tab PO DAILY 07/29/18 11/22/18 History [Centrum Silver Women Tablet] Olopatadine HCl 1 - 2 drop BOTH EYES Q8H 07/29/18 11/22/18 History Topiramate [Topamax] 25 mg PO BID 07/29/18 11/22/18 History Atenolol 25 mg PO DAILY 11/22/18 11/22/18 History Escitalopram [Lexapro] 20 mg PO DAILY 11/22/18 11/22/18 History Allergies Allergy/AdvReac Type Severity Reaction Status Date / Time No Known Allergies Allergy Verified 11/22/18 15:49 Physical Exam Vitals: Vital Signs Temp Pulse Pulse Resp BP BP Pulse Ox 11/23/18 08:40 98.7 F 90 16 114/74 11/23/18 07:00 98.9 F 78 16 118/76 98 11/22/18 23:00 98.7 F 75 20 94/62 93 L 11/22/18 17:59 98.0 F 78 18 126/79 98 11/22/18 17:35 98.3 F 80 18 114/80 97 11/22/18 16:32 79 18 107/69 98 11/22/18 15:11 98.1 F 70 16 132/91 99 Intake and Output 11/22/18 11/23/18 11/23/18 22:59 06:59 14:59 Intake Total 100 100 600 Balance 100 100 600 Intake: Oral 100 100 600 Other: Voiding Method Bedside Commode Bedside Commode Bedside Commode # Voids 2 2 1 # Bowel Movements 2 1 Weight 72.575 kg General appearance: The patient is alert, oriented, in no acute distress. Jaundice. HET: Head is normocephalic and atraumatic. Pupils are equal and reactive. Oropharynx is clear without lesions. Sclerae icterus. Neck: Supple without lymphadenopathy. Trachea midline. Heart: S1 S2. Regular rate and rhythm. Lungs: No crackles or wheezes are heard. Abdomen: Soft, mildly bloated midepigastric tenderness with bowel sounds no appreciable ascites. No peritoneal signs. No palpable organomegaly or masses. Extremities: Mild asterixis. Normal skin color and turgor. No cyanosis, rash, ulceration, clubbing, or edema. Radial and pedal pulses are 2/4 bilaterally. Neurological: No focal deficits. Strength and sensation are grossly intact. Results CBC & Chem 7: 11/24/18 08:49 11/24/18 08:49 Labs: Abnormal Lab Results - Last 24 Hours (Table) 11/22/18 11/22/18 11/22/18 Range/Units 15:35 15:35 15:35 WBC (3.8-10.6) k/uL RBC (3.80-5.40) m/uL MCV 111.0 H (80.0-100.0) fL MCH 35.8 H (25.0-35.0) pg Plt Count 54 L (150-450) k/uL PT (9.0-12.0) sec INR (<1.2) APTT (22.0-30.0) sec Sodium 149 H (137-145) mmol/L Chloride 115 H (98-107) mmol/L Calcium (8.4-10.2) mg/dL Total Bilirubin 3.4 H (0.2-1.3) mg/dL AST 105 H (14-36) U/L Alkaline Phosphatase 155 H (38-126) U/L Ammonia 39 H (<30) umol/L Albumin 3.2 L (3.5-5.0) g/dL Lipase 922 H (23-300) U/L Stool Occult Blood (Negative) Serum Alcohol 358 H* mg/dL 11/22/18 11/22/18 11/23/18 Range/Units 15:35 15:35 08:54 WBC 3.2 L (3.8-10.6) k/uL RBC 3.46 L (3.80-5.40) m/uL MCV 113.9 H (80.0-100.0) fL MCH 35.4 H (25.0-35.0) pg Plt Count 52 L (150-450) k/uL PT 15.0 H (9.0-12.0) sec INR 1.5 H (<1.2) APTT 30.4 H (22.0-30.0) sec Sodium (137-145) mmol/L Chloride (98-107) mmol/L Calcium (8.4-10.2) mg/dL Total Bilirubin (0.2-1.3) mg/dL AST (14-36) U/L Alkaline Phosphatase (38-126) U/L Ammonia (<30) umol/L Albumin (3.5-5.0) g/dL Lipase (23-300) U/L Stool Occult Blood Positive H (Negative) Serum Alcohol mg/dL 11/23/18 Range/Units 08:54 WBC (3.8-10.6) k/uL RBC (3.80-5.40) m/uL MCV (80.0-100.0) fL MCH (25.0-35.0) pg Plt Count (150-450) k/uL PT (9.0-12.0) sec INR (<1.2) APTT (22.0-30.0) sec Sodium (137-145) mmol/L Chloride 113 H (98-107) mmol/L Calcium 7.6 L (8.4-10.2) mg/dL Total Bilirubin (0.2-1.3) mg/dL AST (14-36) U/L Alkaline Phosphatase (38-126) U/L Ammonia (<30) umol/L Albumin (3.5-5.0) g/dL Lipase (23-300) U/L Stool Occult Blood (Negative) Serum Alcohol mg/dL CT scan - abdomen: pending Assessment and Plan (1) Elevated liver enzymes Narrative/Plan: Component of acute alcohol hepatitis but underlying biliary pathology cannot be excluded. [facility] discriminant function score 17. Current Visit: Yes Status: Acute Code(s): R74.8 - ABNORMAL LEVELS OF OTHER SERUM ENZYMES SNOMED Code(s): 045928187 (2) Pancreatitis, alcoholic, acute Current Visit: Yes Status: Acute Code(s): K85.20 - ALCOHOL INDUCED ACUTE PANCREATITIS WITHOUT NECROSIS OR INFCT SNOMED Code(s): 711293460 (3) Melena Narrative/Plan: No further episodes of bleeding hemoglobin stable 13.0. Current Visit: Yes Status: Acute Code(s): K92.1 - MELENA SNOMED Code(s): 5328313 (4) GI bleed Narrative/Plan: Mild component of acute blood loss anemia melena possible peptic ulcer disease possible underlying esophageal varices possible bleeding AVM possible portal hypertensive gastropathy. Current Visit: Yes Status: Acute Code(s): K92.2 - GASTROINTESTINAL HEMORRHAGE, UNSPECIFIED SNOMED Code(s): 86638025 (5) Acute alcoholic hepatitis Current Visit: Yes Status: Acute Code(s): K70.10 - ALCOHOLIC HEPATITIS WITHOUT ASCITES SNOMED Code(s): 6176584 (6) Acute alcohol intoxication Current Visit: Yes Status: Acute Code(s): F10.929 - ALCOHOL USE, UNSPECIFIED WITH INTOXICATION, UNSPECIFIED SNOMED Code(s): 69157739 (7) Coagulopathy Current Visit: Yes Status: Acute Code(s): D68.9 - COAGULATION DEFECT, UNSPECIFIED SNOMED Code(s): 54258478 (8) ETOH abuse Current Visit: Yes Status: Acute Code(s): F10.10 - ALCOHOL ABUSE, UNCOMPLICATED SNOMED Code(s): 55470480 (9) Alcoholic cirrhosis of liver Current Visit: Yes Status: Acute Code(s): K70.30 - ALCOHOLIC CIRRHOSIS OF LIVER WITHOUT ASCITES SNOMED Code(s): 855151771 (10) Hyperammonemia Narrative/Plan: Mild hepatic encephalopathy Current Visit: Yes Status: Acute Code(s): E72.20 - DISORDER OF UREA CYCLE METABOLISM, UNSPECIFIED SNOMED Code(s): 6007357 (11) Thrombocytopenia Current Visit: Yes Status: Acute Code(s): D69.6 - THROMBOCYTOPENIA, UNSPECIFIED SNOMED Code(s): 297978615 Plan: 1. IV fluids at 125 mL an hour. Will provide a 500 mL bolus of normal saline 1 patient reports her urine output this morning has been marginal. 2. CBC monitoring. Protonix 40 mg IV twice daily. 3. CT abdomen and pelvis with IV contrast only; evaluate biliary tree r/o pseudocyst. 4. Tentative EGD tomorrow afternoon. 5. Clear liquid diet. Nothing by mouth after clear liquid breakfast. 6. Daily CBC CMP PT/INR lipase and ammonia. Check AFP. 7. Lactulose 20 g twice daily. 8. Alcohol abstinence strongly advised. The manufacturing software engineer has discussed the risks, benefits and alternative therapies for the above-mentioned procedure and for both sedation/analgesia as well as necessary blood product administration, if indicated, as they pertain to this patient. The patient has indicated understanding and acceptance of the risks and procedures discussed. Thank you for this kind referral and the opportunity to participate in the care of your patient. This consultation was discussed with Dr. Dean. The impression and plan of care have been directed as dictated.
[2018-11-23] MEDS: MULTIVITAMINS, THERA 1 EACH TAB PO SCH (11:19)
[2018-11-23] MEDS ORDERED: THIAMINE 100 MG TAB PO SCH (12:00)
[2018-11-23] MEDS ORDERED: SODIUM CHLORIDE 0.9% 500 ML 500 ML IV ONE (14:24)
--- NOTE | 2018-11-23 16:02 | CT ---
EXAMINATION TYPE: CT abdomen pelvis w con DATE OF EXAM: 11/23/2018 COMPARISON: 06/19/2014 HISTORY: 52-year-old female Jaundice and abdominal pain. TECHNIQUE: Contiguous axial scanning of the abdomen and pelvis following administration of 100 ml Iso bina 300 IV contrast. Delayed images through the kidneys and coronal/sagittal reconstructions perform ed. CT DLP: 1164 mGycm Automated exposure control for dose reduction was used. FINDINGS: Heart normal size without pericardial effusion. There is a trace right effusion with adjacent dependent atelectasis. New nodular contour to the liver as compared to the 2014 study. Approximately 3 hypodense lesions in the right liver lobe are indeterminate. Cysts are possible. These measure less than 1 cm, axial image s 16, 17, and 29. Enlargement of the main portal vein and 1.9 cm. There is recanalization of the umbilical vein. Gallbladder is hydropic at 4.5 cm wide. Small 4 mm gallstone is noted. Bile duct is dilated at 9 mm. Adrenal glands, left kidney, and pancreas show no gross anomaly. Hilar splenule is present in the spleen is mildly enlarged at 14 cm. There is fat stranding about the rebeca hepatis and gastrohepatic ligament region and mild throughout the intra-abdominal fat along with mild to moderate ascites. Suggestion of mild wall thickening along the right side of the colon. Some liquid stool is present th roughout the colon. No mesenteric or retroperitoneal lymphadenopathy seen. Bulky fibroid uterus. Left fundal fibroid measures 5.8 cm versus 4.9 cm on prior exam. A calcified 2. 4 cm anterior lower uterine segment fibroid is also present. Bladder is urine distended. No pelvic lymphadenopathy. No osseous destructive process. IMPRESSION: 1. HYDROPIC GALLBLADDER WITH CHOLELITHIASIS AND BILE DUCT DILATED AT [address], NO DISTAL BILE DUCT FILLING DEFECT IS IDENTIFIED. HOWEVER, IT SHOULD BE NOTED THAT CT HAS LOW SENSITIVITY FOR GALLSTONES . IF CONCERN FOR BILIARY OBSTRUCTION, CONSIDER MRCP OR ERCP. 2. CIRRHOSIS AND PORTAL VENOUS HYPERTENSION (RECANALIZED UMBILICAL VEIN, LARGE CALIBER PORTAL VEIN, M ILD ASCITES , AND MILD SPLENOMEGALY). FINDINGS NEW FROM 2014. 3. MILD CIRCUMFERENTIAL WALL THICKENING ALONG THE ASCENDING COLON AND LIQUID STOOL, POSSIBLE NONSPECI FIC COLITIS. 4. TRACE RIGHT EFFUSION WITH ADJACENT ATELECTASIS. BULKY FIBROID UTERUS.
--- NOTE | 2018-11-24 00:05 | PN ---
PROGRESS NOTE PRESENTING COMPLAINT: Fall, confusion. Gastrointestinal bleed. INTERVAL HISTORY: This patient long-standing alcoholic, known history of cirrhosis. Presented with a working diagnosis of Wernicke's encephalopathy. The patient started on thiamine, acute alcohol intoxication, acute GI bleed felt to be variocele. The patient's is at the bedside. Awake but tired. Seen by Gastroenterology. REVIEW OF SYSTEMS: Done for constitutional, cardiovascular, GI, pulmonary; relevant findings are present. The patient is able to answer questions. CURRENT MEDICATIONS: Reviewed that includes lactulose 20 g b.i.d., multivitamin, vitamin K, IV Thiamin. PHYSICAL EXAMINATION: VITAL SIGNS: Temperature 99.3, pulse 92, respiration 20, blood pressure 149/93. Pulse ox 95% on room air. GENERAL APPEARANCE: Lying in bed, awake, tired. EYES: Pupils equal. Conjunctivae normal. Conjunctivae icterus. NECK: JVD not raised. Mass not palpable. RESPIRATORY: Effort normal. LUNGS: Decreased breath sounds. CARDIOVASCULAR: 1st and 2nd sounds normal. No edema. ABDOMEN: Mild distention, soft. Liver and spleen not palpable. PSYCHIATRY: The patient is able to answer simple questions. INVESTIGATIONS: White count 3.2, hemoglobin 12.3. Potassium 3.7. Vitamin B12 1093. CT scan of the abdomen and pelvis hydropic gallbladder with cholelithiasis and common bile duct dilated 9 mm, cirrhosis and portal venous hypertension. ASSESSMENT: 1. Wernicke's encephalopathy, being treated with IV thiamine secondary to alcoholism. 2. Cirrhosis secondary to chronic alcoholism. 3. Acute alcoholic intoxication on presentation. 4. Acute gastrointestinal bleed likely of varicoceles and/or hemorrhoidal. 5. Hypoalbuminemia from chronic liver disease. 6. Hyperbilirubinemia. 7. Coagulopathy secondary to chronic liver disease secondary to cirrhosis. 8. Thrombocytopenia due to chronic liver disease. 9. Essential hypertension. 10.Gastroesophageal reflux disease. 11.Chronic nicotine dependence, patient is a cigarette smoker. 12.Portal hypertension. 13.Hydropic gallbladder with cholelithiasis. 14.Acute alcoholic pancreatitis. PLAN: Patient was seen by GI earlier today. Contemplating an EGD. Also get a surgical opinion. Care was discussed with the patient's at the bedside. Prognosis guarded. MMODL / IJN: [id number] /
[2018-11-24] MEDS: PHYTONADIONE ORAL 5 MG/5 ML ORAL.SYRG PO SCH (01:11)
[2018-11-24] MEDS: SODIUM CHLORIDE 0.9% 1,000 ML IV SCH ×3 (02:59→09:15)
[2018-11-24] MEDS ORDERED: LACTATED RINGERS 1,000 ML IV SCH (06:00)
[2018-11-24] MEDS: LACTULOSE 20 GM/30 ML CUP PO SCH ×2 (07:27→21:23)
[2018-11-24] MEDS: TOPIRAMATE 25 MG TAB PO SCH ×2 (07:28→21:23)
[2018-11-24] MEDS: ESCITALOPRAM 20 MG TAB PO SCH (07:28)
[2018-11-24] MEDS: MULTIVITAMINS, THERA 1 EACH TAB PO SCH (07:28)
[2018-11-24] MEDS: PANTOPRAZOLE 40 MG/10 ML VIAL IV SCH (07:28)
[2018-11-24] MEDS: MAGNESIUM OXIDE 400 MG TAB PO SCH (07:28)
[2018-11-24] MEDS: LACOSAMIDE 50 MG TABLET PO SCH ×2 (07:32→21:23)
[2018-11-24] MEDS: LACOSAMIDE 150 MG TABLET PO SCH ×2 (07:32→21:23)
[2018-11-24] MEDS: THIAMINE 100 MG in SODIUM CHLORIDE 0.9% 100 ML IVPB SCH ×2 (07:32→21:23)
[2018-11-24 09:08] LABS: INR 1.5 (<1.2); Prothrombin Time 15.4 sec (9.0-12.0)
[2018-11-24 09:13] LABS: Basophils % (A) 0 %; Eosinophils # (A) 0.1 k/uL (0-0.7); Eosinophils % (A) 2 %; HCT 39.5 % (34.0-46.0); Lymphocytes # (A) 0.7 k/uL (1.0-4.8); Lymphocytes % (A) 16 %; MCH 36.1 pg (25.0-35.0); MCHC 32.9 g/dL (31.0-37.0); MCV 109.7 fL (80.0-100.0); Macrocytosis Marked; Mean Platelet Volume 7.6; Monocytes # (A) 0.2 k/uL (0-1.0); Monocytes % (A) 6 %; Neutrophils # (A) 3.2 k/uL (1.3-7.7); Neutrophils % (A) 73 %; RDW 14.1 % (11.5-15.5); WBC 4.4 k/uL (3.8-10.6)
[2018-11-24 09:15] LABS: Platelet Count 45 k/uL (150-450)
[2018-11-24 09:25] LABS: ALT 39 U/L (9-52); AST 98 U/L (14-36); Albumin 2.8 g/dL (3.5-5.0); Alkaline Phosphatase 134 U/L (38-126); Anion Gap 4 mmol/L; Blood Urea Nitrogen 6 mg/dL (7-17); Carbon Dioxide 26 mmol/L (22-30); Chloride 109 mmol/L (98-107); Glucose 102 mg/dL (74-99); Lipase 913 U/L (23-300); Potassium 3.6 mmol/L (3.5-5.1); Sodium 139 mmol/L (137-145); Total Bilirubin 5.8 mg/dL (0.2-1.3); Total Protein 5.8 g/dL (6.3-8.2)
--- NOTE | 2018-11-24 09:59 | P.PN ---
Subjective Progress Note Date: 11/24/18 Principal diagnosis: GI bleed melena alcohol intoxication pancreatitis hepatitis Feels better this morning. Still reports slight discomfort midepigastric left upper quadrant. White count 4.4. Hemoglobin 13. Platelet 45,000. INR is stable 1.5. No further episodes of melena or bleeding. Passing nonbloody bowel movements. Receiving lactulose. Total bilirubin increased 5.8. AST 98. ALT 39. Ammonia 44. AP 134. Lipase unchanged 913. CT reported hydropic gallbladder with stones bile duct 9 mm no filling defect identified. Cirrhosis portal venous hypertension recanalized umbilical vein large-caliber portal vein mild ascites splenomegaly. Bulky fibroid uterus. Objective - Vital Signs Vital signs: Vital Signs Temp 99.1 F 11/24/18 07:55 Pulse 78 11/24/18 07:58 Resp 15 11/24/18 07:55 BP 133/78 11/24/18 07:55 Pulse Ox 93 L 11/24/18 06:43 Intake & Output 11/23/18 11/24/18 11/24/18 18:59 06:59 18:59 Intake Total 600 1600 Balance 600 1600 Intake: Oral 600 1600 Other: Voiding Method Bedside Commode Bedside Commode Bedside Commode # Voids 1 9 1 # Bowel Movements 1 9 - Exam General appearance: The patient is alert, oriented, in no acute distress. Jaundice. HET: Head is normocephalic and atraumatic. Pupils are equal and reactive. Oropharynx is clear without lesions. Sclerae icterus. Neck: Supple without lymphadenopathy. Trachea midline. Heart: S1 S2. Regular rate and rhythm. Lungs: No crackles or wheezes are heard. Abdomen: Soft, mild tenderness midepigastric left upper quadrant, nondistended with bowel sounds. No peritoneal signs. No palpable organomegaly or masses. Extremities: Normal skin color and turgor. No cyanosis, rash, ulceration, clubbing, or edema. Radial and pedal pulses are 2/4 bilaterally. Neurological: Positive asterixis. No focal deficits. Strength and sensation are grossly intact. - Labs CBC & Chem 7: 11/24/18 08:49 11/24/18 08:49 Labs: Abnormal Lab Results - Last 24 Hours (Table) 11/23/18 11/23/18 11/23/18 Range/Units 08:54 08:54 08:54 WBC 3.2 L (3.8-10.6) k/uL RBC 3.46 L (3.80-5.40) m/uL MCV 113.9 H (80.0-100.0) fL MCH 35.4 H (25.0-35.0) pg Plt Count 52 L (150-450) k/uL PT (9.0-12.0) sec INR (<1.2) Chloride 113 H (98-107) mmol/L BUN (7-17) mg/dL Glucose (74-99) mg/dL Calcium 7.6 L (8.4-10.2) mg/dL Total Bilirubin (0.2-1.3) mg/dL AST (14-36) U/L Alkaline Phosphatase (38-126) U/L Ammonia (<30) umol/L Total Protein (6.3-8.2) g/dL Albumin (3.5-5.0) g/dL Lipase (23-300) U/L Vitamin B12 1093.0 H (200.0-944.0) pg/mL 11/24/18 11/24/18 11/24/18 Range/Units 08:49 08:49 08:49 WBC (3.8-10.6) k/uL RBC 3.60 L (3.80-5.40) m/uL MCV 109.7 H (80.0-100.0) fL MCH 36.1 H (25.0-35.0) pg Plt Count 45 L (150-450) k/uL PT 15.4 H (9.0-12.0) sec INR 1.5 H (<1.2) Chloride 109 H (98-107) mmol/L BUN 6 L (7-17) mg/dL Glucose 102 H (74-99) mg/dL Calcium 8.0 L (8.4-10.2) mg/dL Total Bilirubin 5.8 H (0.2-1.3) mg/dL AST 98 H (14-36) U/L Alkaline Phosphatase 134 H (38-126) U/L Ammonia (<30) umol/L Total Protein 5.8 L (6.3-8.2) g/dL Albumin 2.8 L (3.5-5.0) g/dL Lipase 913 H (23-300) U/L Vitamin B12 (200.0-944.0) pg/mL 11/24/18 Range/Units 08:49 WBC (3.8-10.6) k/uL RBC (3.80-5.40) m/uL MCV (80.0-100.0) fL MCH (25.0-35.0) pg Plt Count (150-450) k/uL PT (9.0-12.0) sec INR (<1.2) Chloride (98-107) mmol/L BUN (7-17) mg/dL Glucose (74-99) mg/dL Calcium (8.4-10.2) mg/dL Total Bilirubin (0.2-1.3) mg/dL AST (14-36) U/L Alkaline Phosphatase (38-126) U/L Ammonia 44 H (<30) umol/L Total Protein (6.3-8.2) g/dL Albumin (3.5-5.0) g/dL Lipase (23-300) U/L Vitamin B12 (200.0-944.0) pg/mL Assessment and Plan (1) Elevated liver enzymes Narrative/Plan: Worsening LFTs with component of acute alcohol hepatitis CT abdominal imaging reported underlying cholelithiasis CBD 9 mm with no distal bile duct filling defects seen. Current Visit: Yes Status: Acute Code(s): R74.8 - ABNORMAL LEVELS OF OTHER SERUM ENZYMES SNOMED Code(s): 261543122 (2) Pancreatitis, alcoholic, acute Current Visit: Yes Status: Acute Code(s): K85.20 - ALCOHOL INDUCED ACUTE PANCREATITIS WITHOUT NECROSIS OR INFCT SNOMED Code(s): 418726778 (3) Melena Narrative/Plan: No further episodes of bleeding hemoglobin stable 13.0. Current Visit: Yes Status: Acute Code(s): K92.1 - MELENA SNOMED Code(s): 7905174 (4) GI bleed Narrative/Plan: Mild component of acute blood loss anemia melena possible peptic ulcer disease possible underlying esophageal varices possible bleeding AVM possible portal hypertensive gastropathy. Current Visit: Yes Status: Acute Code(s): K92.2 - GASTROINTESTINAL HEMORRHAGE, UNSPECIFIED SNOMED Code(s): 79893860 (5) Acute alcoholic hepatitis Current Visit: Yes Status: Acute Code(s): K70.10 - ALCOHOLIC HEPATITIS WITHOUT ASCITES SNOMED Code(s): 1276275 (6) Acute alcohol intoxication Current Visit: Yes Status: Acute Code(s): F10.929 - ALCOHOL USE, UNSPECIFIED WITH INTOXICATION, UNSPECIFIED SNOMED Code(s): 91216821 (7) Coagulopathy Current Visit: Yes Status: Acute Code(s): D68.9 - COAGULATION DEFECT, UNSPECIFIED SNOMED Code(s): 75718413 (8) ETOH abuse Current Visit: Yes Status: Acute Code(s): F10.10 - ALCOHOL ABUSE, UNCOMPLICATED SNOMED Code(s): 23328563 (9) Alcoholic cirrhosis of liver Current Visit: Yes Status: Acute Code(s): K70.30 - ALCOHOLIC CIRRHOSIS OF LIVER WITHOUT ASCITES SNOMED Code(s): 790945468 (10) Hyperammonemia Narrative/Plan: Hepatic encephalopathy ammonia elevated today 44 Current Visit: Yes Status: Acute Code(s): E72.20 - DISORDER OF UREA CYCLE METABOLISM, UNSPECIFIED SNOMED Code(s): 0267271
[2018-11-24 10:34] LABS: Bilirubin, Conjugated 0.9 mg/dL (0.0-0.3); Bilirubin, Delta 2.2 mg/dL (0.0-0.2); Bilirubin,Unconjugated 2.6 mg/dL (0.0-1.1); Total Bilirubin 5.7 mg/dL (0.2-1.3)
--- NOTE | 2018-11-24 13:17 | P.GSCN ---
History of Present Illness Consult date: 11/24/18 Reason for Consult: dilated GB, with dilated CBD Requesting physician: Javier Gibbons History of present illness: CHIEF COMPLAINT: Abnormal CT HISTORY OF PRESENT ILLNESS: 52-year-old female with a history of alcoholism who presented to the emergency room with abdominal pain and black colored stools. CT abdomen and pelvis was obtained revealing hydropic gallbladder with cholelithiasis and bile duct dilation measuring 9 mm. Cirrhosis and portal venous hypertension. Mild circumferential wall thickening along the ascending colon and liquid stool, possible nonspecific colitis. General surgery was consulted secondary to abnormal CT. Patient examined at the bedside. She denies right quadrant abdominal pain. Denies nausea or vomiting. Repeats black colored stools. She is scheduled for EGD today. PAST MEDICAL HISTORY: See list. PAST SURGICAL HISTORY: See list. MEDICATIONS: See list. ALLERGIES: See list. SOCIAL HISTORY: No illicit drug use. Former cigarette smoker. History of alcohol abuse. Patient continues to drink daily. REVIEW OF ORGAN SYSTEMS: CONSTITUTIONAL: Denies fever or chills. HEENT: No troubles with vision or hearing. ENDOCRINE: No reports of thyroid disorders. CARDIOVASCULAR: Denies chest pain or pressure. RESPIRATORY: No shortness of breath or pneumonia. GASTROINTESTINAL: Positive for black stools. Positive for left-sided abdominal pain. Denies right-sided abdominal pain. Denies nausea or vomiting. NEURO: Denies seizure activity. Reports history of stroke. PSYCH: No depression or suicidal ideation. History of anxiety. HEMATOLOGIC: No easy bruising or bleeding LYMPHATIC: The patient denies any lumps and bumps around the neck. GENITOURINARY: Denies any blood in urine or increased urinary frequency. MUSCULOSKELETAL: Denies back pain, stiffness or joint arthritis. SKIN: Denies rash or cellulitis. PHYSICAL EXAM: VITAL SIGNS: Currently stable. GENERAL: Well-developed in no acute distress. HEENT: Jaundice. Extraocular movements grossly intact. Moist buccal mucosa. Head is atraumatic, normocephalic. Hears conversational speech. No nasal drainage. NECK: Supple without lymphadenopathy. CHEST: Non-labored respirations and equal bilateral excursions. CARDIOVASCULAR: Regular rate with regular rhythm. Palpable 2+ radial pulses. ABDOMEN: Soft. Nondistended. Positive bowel sounds. MUSCULOSKELETAL: No clubbing, cyanosis or edema. NEUROLOGIC: Cranial nerves II through XII grossly intact. PSYCH: Alert and oriented x 3. SKIN: Well perfused. Good skin turgor. Jaundice. LABS: Reviewed ASSESSMENT: 1. Hydropic gallbladder with cholelithiasis and bile duct dilation measuring 9 mm 2. Mild circumferential wall thickening along the ascending colon and liquid stool, possible nonspecific colitis 3. GI Bleeding, patient reports black stools at home, FOBT + 4. Transaminitis 5. Hyperbilirubinemia 6. Acute alcoholic pancreatitis 7. Alcoholic cirrhosis of liver 8. Coagulopathy secondary to liver cirrhosis 9. Acute alcohol intoxication, serum alcohol 358 10. Thrombocytopenia, platelet count 45,000 PLAN: Incidental gallbladder findings of hydropic gallbladder with cholelithiasis and bile duct dilation measuring 9 mm. Patient is asymptomatic. Patient is not a surgical candidate at this time due to multiple comorbidities including alcoholism, liver cirrhosis, and coagulopathy. GI is following and patient scheduled for EGD today. Will continue to monitor patient. Nurse practitioner note has been reviewed by physician. Signing provider agrees with the documented findings, assessment, and plan of care. Past Medical History Past Medical History: Asthma, CVA/TIA, Hypertension, Pneumonia Additional Past Medical History / Comment(s): 01-22-16 C/O SKIN DISCOLORATION( JAUNDICE),ABD PAIN/DISTENTION, LEG EDEMA AND 20 POUND WT GAIN IN 2 WEEKS.CLINICAL IMPRESSION :ACUTE LIVER FAILURE. OTHER PAST MEDICAL HX INCLUSED UTI'S,ARTHRITIS, KIDNEY STONES ,OCC HEART BURN,IN AUG 2015 WENT TO [facility] C/O CHEST PAIN-TESTING IN EC NEG.SINUS PROBLES, HEMORROIDS/CONSTIPATION-LAST BM TODAY(01-22-16 SMALL HARD STATED HAD STREAK OF BLOOD ) History of Any Multi-Drug Resistant Organisms: None Reported Past Surgical History: Section, Tonsillectomy Additional Past Surgical History / Comment(s): X2 C-SECTIONS, WHEN AGE 7 HAD A SCOPE DONE -TOLD SHE HAD A NERVOUS STOMACH Past Anesthesia/Blood Transfusion Reactions: No Reported Reaction Additional Past Anesthesia/Blood Transfusion Reaction / Comm: CLAUSTERPHOBIA Past Psychological History: Anxiety Smoking Status: Former smoker Past Alcohol Use History: Daily Additional Past Alcohol Use History / Comment(s): STARTED SMOKING AGE 14, SMOKED HERE AND THERE, QUIT BY AGE 20, STATED QUIT DRINKING 3 MONTHS AGO BUT BEFORE THAT WAS DRINING 2 DRINKS PER DAY(VODKA). Past Drug Use History: None Reported Additional Drug Use History / Comment(s): DENIES ANY DRUG USE,NO IV DRUG USE - Past Family History Father Additional Family Medical History / Comment(s): [employer] Mother Family Medical History: Coronary Artery Disease (CAD), Diabetes Mellitus, Hypertension, Pneumonia, Thyroid Disorder Additional Family Medical History / Comment(s): GOUT,X3 STENTS Medications and Allergies Home Medications Medication Instructions Recorded Confirmed Type Cholecalciferol [Vitamin D3] 1,000 unit PO DAILY 06/19/14 11/22/18 History Pantoprazole [Protonix] 40 mg PO DAILY #30 tablet. 01/27/16 11/22/18 Rx Lacosamide [Vimpat] 200 mg PO BID 07/29/18 11/22/18 History Magnesium Oxide [Cramer] 500 mg PO DAILY 07/29/18 11/22/18 History Multivit-Min/Iron/Folic/Lutein 1 tab PO DAILY 07/29/18 11/22/18 History [Centrum Silver Women Tablet] Olopatadine HCl 1 - 2 drop BOTH EYES Q8H 07/29/18 11/22/18 History Topiramate [Topamax] 25 mg PO BID 07/29/18 11/22/18 History Atenolol 25 mg PO DAILY 11/22/18 11/22/18 History Escitalopram [Lexapro] 20 mg PO DAILY 11/22/18 11/22/18 History Allergies Allergy/AdvReac Type Severity Reaction Status Date / Time No Known Allergies Allergy Verified 11/22/18 15:49 Surgical - Exam Vital Signs Temp Pulse Resp BP Pulse Ox 98.1 F 70 16 132/91 99 11/22/18 15:11 11/22/18 15:11 11/22/18 15:11 11/22/18 15:11 11/22/18 15:11 Results - Labs 11/24/18 08:49 11/24/18 08:49 Abnormal Lab Results - Last 24 Hours (Table) 11/23/18 11/24/18 11/24/18 Range/Units 08:54 08:46 08:49 RBC (3.80-5.40) m/uL MCV (80.0-100.0) fL MCH (25.0-35.0) pg Plt Count (150-450) k/uL Lymphocytes # (1.0-4.8) k/uL PT (9.0-12.0) sec INR (<1.2) Chloride 109 H (98-107) mmol/L BUN 6 L (7-17) mg/dL Glucose 102 H (74-99) mg/dL Calcium 8.0 L (8.4-10.2) mg/dL Total Bilirubin 5.7 H 5.8 H (0.2-1.3) mg/dL Conjugated Bilirubin 0.9 H (0.0-0.3) mg/dL Unconjugated Bilirubin 2.6 H (0.0-1.1) mg/dL Delta Bilirubin 2.2 H (0.0-0.2) mg/dL AST 98 H (14-36) U/L Alkaline Phosphatase 134 H (38-126) U/L Ammonia (<30) umol/L Total Protein 5.8 L (6.3-8.2) g/dL Albumin 2.8 L (3.5-5.0) g/dL Lipase 913 H (23-300) U/L Vitamin B12 1093.0 H (200.0-944.0) pg/mL 11/24/18 11/24/18 11/24/18 Range/Units 08:49 08:49 08:49 RBC 3.60 L (3.80-5.40) m/uL MCV 109.7 H (80.0-100.0) fL MCH 36.1 H (25.0-35.0) pg Plt Count 45 L (150-450) k/uL Lymphocytes # 0.7 L (1.0-4.8) k/uL PT 15.4 H (9.0-12.0) sec INR 1.5 H (<1.2) Chloride (98-107) mmol/L BUN (7-17) mg/dL Glucose (74-99) mg/dL Calcium (8.4-10.2) mg/dL Total Bilirubin (0.2-1.3) mg/dL Conjugated Bilirubin (0.0-0.3) mg/dL Unconjugated Bilirubin (0.0-1.1) mg/dL Delta Bilirubin (0.0-0.2) mg/dL AST (14-36) U/L Alkaline Phosphatase (38-126) U/L Ammonia 44 H (<30) umol/L Total Protein (6.3-8.2) g/dL Albumin (3.5-5.0) g/dL Lipase (23-300) U/L Vitamin B12 (200.0-944.0) pg/mL Diabetes panel 11/24/18 Range/Units 08:49 Sodium 139 (137-145) mmol/L Potassium 3.6 (3.5-5.1) mmol/L Chloride 109 H (98-107) mmol/L Carbon Dioxide 26 (22-30) mmol/L BUN 6 L (7-17) mg/dL Creatinine 0.62 (0.52-1.04) mg/dL Glucose 102 H (74-99) mg/dL Calcium 8.0 L (8.4-10.2) mg/dL AST 98 H (14-36) U/L ALT 39 (9-52) U/L Alkaline Phosphatase 134 H (38-126) U/L Total Protein 5.8 L (6.3-8.2) g/dL Albumin 2.8 L (3.5-5.0) g/dL Calcium panel 11/24/18 Range/Units 08:49 Calcium 8.0 L (8.4-10.2) mg/dL Albumin 2.8 L (3.5-5.0) g/dL Pituitary panel 11/24/18 Range/Units 08:49 Sodium 139 (137-145) mmol/L Potassium 3.6 (3.5-5.1) mmol/L Chloride 109 H (98-107) mmol/L Carbon Dioxide 26 (22-30) mmol/L BUN 6 L (7-17) mg/dL Creatinine 0.62 (0.52-1.04) mg/dL Glucose 102 H (74-99) mg/dL Calcium 8.0 L (8.4-10.2) mg/dL Adrenal panel 11/24/18 11/24/18 Range/Units 08:46 08:49 Sodium 139 (137-145) mmol/L Potassium 3.6 (3.5-5.1) mmol/L Chloride 109 H (98-107) mmol/L Carbon Dioxide 26 (22-30) mmol/L BUN 6 L (7-17) mg/dL Creatinine 0.62 (0.52-1.04) mg/dL Glucose 102 H (74-99) mg/dL Calcium 8.0 L (8.4-10.2) mg/dL Total Bilirubin 5.7 H 5.8 H (0.2-1.3) mg/dL AST 98 H (14-36) U/L ALT 39 (9-52) U/L Alkaline Phosphatase 134 H (38-126) U/L Total Protein 5.8 L (6.3-8.2) g/dL Albumin 2.8 L (3.5-5.0) g/dL Assessment and Plan (1) Cholelithiasis Current Visit: Yes Status: Acute Code(s): K80.20 - CALCULUS OF GALLBLADDER W /O CHOLECYSTITIS W/O OBSTRUCTION SNOMED Code(s): 761060073 (2) Enlarged gallbladder Current Visit: Yes Status: Acute Code(s): K82.8 - OTHER SPECIFIED DISEASES OF GALLBLADDER SNOMED Code(s): 643502180 (3) Acute alcohol intoxication Current Visit: Yes Status: Acute Code(s): F10.929 - ALCOHOL USE, UNSPECIFIED WITH INTOXICATION, UNSPECIFIED SNOMED Code(s): 07936006 (4) Acute gastrointestinal bleeding Current Visit: Yes Status: Acute Code(s): K92.2 - GASTROINTESTINAL HEMORRHAGE, UNSPECIFIED SNOMED Code(s): 42871006 (5) Alcoholic cirrhosis of liver Current Visit: Yes Status: Acute Code(s): K70.30 - ALCOHOLIC CIRRHOSIS OF LIVER WITHOUT ASCITES SNOMED Code(s): 733553905 (6) Coagulopathy Current Visit: Yes Status: Acute Code(s): D68.9 - COAGULATION DEFECT, UNSPECIFIED SNOMED Code(s): 58042376 (7) ETOH abuse Current Visit: Yes Status: Acute Code(s): F10.10 - ALCOHOL ABUSE, UNCOMPLICATED SNOMED Code(s): 70699237 (8) Elevated liver enzymes Current Visit: Yes Status: Acute Code(s): R74.8 - ABNORMAL LEVELS OF OTHER SERUM ENZYMES SNOMED Code(s): 327118459 (9) GI bleed Current Visit: Yes Status: Acute Code(s): K92.2 - GASTROINTESTINAL HEMORRHAGE, UNSPECIFIED SNOMED Code(s): 36333274 (10) Hyperammonemia Current Visit: Yes Status: Acute Code(s): E72.20 - DISORDER OF UREA CYCLE METABOLISM, UNSPECIFIED SNOMED Code(s): 8592213 (11) Melena Current Visit: Yes Status: Acute Code(s): K92.1 - MELENA SNOMED Code(s): 4791157 (12) Pancreatitis, alcoholic, acute Current Visit: Yes Status: Acute Code(s): K85.20 - ALCOHOL INDUCED ACUTE PANCREATITIS WITHOUT NECROSIS OR INFCT SNOMED Code(s): 011656962
[2018-11-24] MEDS: LACTATED RINGERS 1,000 ML IV SCH (17:20)
--- NOTE | 2018-11-24 17:44 | PN ---
PROGRESS NOTE ADDENDUM TO PROGRESS NOTE: My progress note dictated on 11/23/2018 at 2336: Date transcribed: 11/23/2018 at 2358. Correct date of service: 11/23/2018. BENJAMÍN / LUIS: [id number] /
--- NOTE | 2018-11-24 17:50 | PN ---
PROGRESS NOTE DATE OF SERVICE: 11/24/2018 PRESENTING COMPLAINT: Tired. INTERVAL HISTORY: This long-standing alcoholic with known history of cirrhosis presented with Wernicke's encephalopathy, acute alcohol intoxication, acute GI bleed felt to be variceal. Patient's double vision is gone. The patient is walking better, feeling less tired. Confusion is greatly improved. REVIEW OF SYSTEMS: Done for constitutional, cardiovascular, GI, pulmonary; relevant findings as above. Patient has had a few stools with the lactulose. CURRENT MEDICATIONS: Reviewed. They include: 1. Lactulose 20 grams twice a day. 2. Oral vitamin K. 3. IV thiamine. PHYSICAL EXAMINATION: Temperature 99.1, pulse 78, respiration 15, blood pressure 133/78, pulse ox 95% on room air. GENERAL APPEARANCE: Lying in bed, more awake. EYES: Pupils equal. Conjunctivae icteric. No nystagmus. NECK: JVD not raised. Mass not palpable. RESPIRATORY: Effort normal. LUNGS: Decreased breath sounds. CARDIOVASCULAR: First and second sounds normal. No edema. ABDOMEN: Soft, non-tender. Liver and spleen not palpable. PSYCHIATRY: Patient is answering questions far more appropriately. No confusion. INVESTIGATIONS: White count 4.4, hemoglobin 13, platelets 45, potassium 3.6, total bilirubin 5.7. ASSESSMENT: 1. Acute Wernicke's encephalopathy, responding well to IV thiamine, secondary to alcoholism. 2. Cirrhosis secondary to chronic alcoholism. 3. Acute alcohol intoxication on presentation. 4. Hypoalbuminemia from chronic liver disease. 5. Hyperbilirubinemia. 6. Coagulopathy secondary to chronic liver disease from cirrhosis. 7. Thrombocytopenia from chronic liver disease. 8. Essential hypertension. 9. Gastroesophageal reflux disease. 10.Chronic nicotine dependence. Patient is a cigarette smoker. 11.Portal hypertension. 12.Hydropic gallbladder with cholelithiasis. 13.Acute alcoholic pancreatitis with clinical improvement. The patient was seen by General Surgery, Dr. Holliday. At this point, no intervention per them. GI is also following. Will cut back on the IV fluids and change the patient to oral PPI. MMODL / IJN: [id number] /
--- NOTE | 2018-11-24 18:58 | P.PN ---
Progress Note - Text Progress Note Date: 11/24/18 Patient seen and evaluated with nurse practitioner. Patient has no clinical symptoms of right upper quadrant abdominal pain or epigastric abdominal pain. She admits to heavy alcohol use. Incidental finding of dilated gallbladder noted. No surgical intervention advised with active alcoholism and liver cirrhosis. INR 1.5. Agree with GI consultation and management. May follow up as outpatient. Surgical care plan described to the patient in detail
[2018-11-25] MEDS: PHYTONADIONE ORAL 5 MG/5 ML ORAL.SYRG PO SCH ×2 (00:49→22:34)
[2018-11-25] MEDS: ESCITALOPRAM 20 MG TAB PO SCH (08:24)
[2018-11-25] MEDS: LACOSAMIDE 150 MG TABLET PO SCH ×2 (08:25→20:09)
[2018-11-25] MEDS: LACTULOSE 20 GM/30 ML CUP PO SCH ×2 (08:25→20:09)
[2018-11-25] MEDS: LACOSAMIDE 50 MG TABLET PO SCH ×2 (08:25→20:09)
[2018-11-25] MEDS: PANTOPRAZOLE 40 MG TABLET PO SCH (08:25)
[2018-11-25] MEDS: MAGNESIUM OXIDE 400 MG TAB PO SCH (08:25)
[2018-11-25] MEDS: TOPIRAMATE 25 MG TAB PO SCH ×2 (08:25→20:09)
[2018-11-25] MEDS: THIAMINE 100 MG in SODIUM CHLORIDE 0.9% 100 ML IVPB SCH ×2 (08:28→20:09)
[2018-11-25 09:27] LABS: ALT 32 U/L (9-52); AST 88 U/L (14-36); Albumin 2.7 g/dL (3.5-5.0); Alkaline Phosphatase 95 U/L (38-126); Anion Gap 6 mmol/L; Blood Urea Nitrogen 4 mg/dL (7-17); Calcium 7.9 mg/dL (8.4-10.2); Carbon Dioxide 21 mmol/L (22-30); Chloride 111 mmol/L (98-107); Glucose 183 mg/dL (74-99); Lipase 511 U/L (23-300); Potassium 3.3 mmol/L (3.5-5.1); Sodium 138 mmol/L (137-145); Total Bilirubin 6.1 mg/dL (0.2-1.3); Total Protein 5.8 g/dL (6.3-8.2)
[2018-11-25 09:44] LABS: Basophils % (A) 0 %; Eosinophils # (A) 0.1 k/uL (0-0.7); Eosinophils % (A) 3 %; HCT 38.6 % (34.0-46.0); HGB 12.5 gm/dL (11.4-16.0); Lymphocytes # (A) 0.7 k/uL (1.0-4.8); Lymphocytes % (A) 18 %; MCH 36.5 pg (25.0-35.0); MCHC 32.4 g/dL (31.0-37.0); MCV 112.8 fL (80.0-100.0); Macrocytosis Marked; Mean Platelet Volume 7.5; Monocytes # (A) 0.2 k/uL (0-1.0); Monocytes % (A) 6 %; Neutrophils # (A) 2.6 k/uL (1.3-7.7); Neutrophils % (A) 69 %; RBC 3.42 m/uL (3.80-5.40); RDW 14.2 % (11.5-15.5); WBC 3.8 k/uL (3.8-10.6)
[2018-11-25 09:55] LABS: Platelet Count 34 k/uL (150-450)
--- NOTE | 2018-11-25 10:25 | PN ---
PROGRESS NOTE DATE OF DICTATION: 11/25/2018 This patient is a 52-year-old pleasant white female with history of liver cirrhosis and heavy alcohol abuse, admitted to the hospital with alcoholic intoxication, abdominal pain, black tarry stools for the last one week's duration. She is feeling much better this morning. She denies any nausea, vomiting. She is on a clear liquid diet, tolerating well. Tremors have improved. Overall she is feeling much better. PHYSICAL EXAMINATION: She appears comfortable; no apparent distress. Vital signs are stable. Blood pressure is 132/86, pulse rate 85, temperature 100.2. HEENT EXAMINATION: Unremarkable. Conjunctivae pink. Sclerae anicteric. Oral cavity no lesions. NECK: No JVD or lymph node enlargement. CHEST: Clear to auscultation. HEART: Regular rate and rhythm. ABDOMEN: Soft. There was mild tenderness in the epigastric area. Bowel sounds were positive. No organomegaly. EXTREMITIES: No pedal edema. SKIN: No rashes. NEUROLOGIC: No focal deficits. LABS: WBC 4.4, hemoglobin 13, platelets of 45,000. T-bilirubin is 6.1, AST 88, ALT 32, alkaline phosphatase 95. Serum alcohol was 358. IMPRESSION: 1. Acute alcoholic intoxication. 2. Alcoholic cirrhosis of the liver with a component of acute alcoholic hepatitis. 3. Melena of one week's duration, possible upper gastrointestinal source of bleeding. Hemoglobin currently stable at 13 g/dL. 4. Mild coagulopathy secondary to underlying chronic liver disease. 5. History of heavy alcohol abuse. RECOMMENDATIONS: 1. Advance diet as tolerated. 2. Continue with Protonix 40 mg daily. 3. Repeat LFTs in the morning. 4. For possible upper GI bleed, we will schedule her for an upper endoscopy on Tuesday. The plan was discussed with the patient. Thank you for this consultation. MMODL / IJN: [id number] /
--- NOTE | 2018-11-25 11:18 | P.PN ---
Subjective Progress Note Date: 11/25/18 Principal diagnosis: Abdominal pain Patient states her pain has resolved. Tolerating liquid diet. T-max 100.2. She did have some melanotic stools. Apparently GI is planning upper endoscopy on Tuesday. Objective - Vital Signs Vital signs: Vital Signs Temp 98.9 F 11/25/18 06:01 Pulse 83 11/25/18 06:01 Resp 18 11/25/18 06:01 BP 119/76 11/25/18 06:01 Pulse Ox 97 11/25/18 06:01 Intake & Output 11/24/18 11/25/18 11/25/18 18:59 06:59 18:59 Other: Voiding Method Toilet # Voids 1 3 # Bowel Movements 1 2 - Exam Abdomen: Soft, nontender, nondistended - Labs CBC & Chem 7: 11/25/18 08:54 11/25/18 08:54 Labs: Abnormal Lab Results - Last 24 Hours (Table) 11/25/18 11/25/18 11/25/18 Range/Units 08:54 08:54 08:54 RBC 3.42 L (3.80-5.40) m/uL MCV 112.8 H (80.0-100.0) fL MCH 36.5 H (25.0-35.0) pg Plt Count 34 L (150-450) k/uL Potassium 3.3 L (3.5-5.1) mmol/L Chloride 111 H (98-107) mmol/L Carbon Dioxide 21 L (22-30) mmol/L BUN 4 L (7-17) mg/dL Glucose 183 H (74-99) mg/dL Calcium 7.9 L (8.4-10.2) mg/dL Total Bilirubin 6.1 H (0.2-1.3) mg/dL AST 88 H (14-36) U/L Ammonia 65 H (<30) umol/L Total Protein 5.8 L (6.3-8.2) g/dL Albumin 2.7 L (3.5-5.0) g/dL Lipase 511 H (23-300) U/L Assessment and Plan (1) Elevated liver enzymes Narrative/Plan: Patient's symptoms of abdominal pain resolved. She states the pain was mostly in the left upper quadrant. She is hungry. Will increase diet. No surgical intervention planned. We'll sign off. Please call if needed. Current Visit: No Status: Acute Code(s): R74.8 - ABNORMAL LEVELS OF OTHER SERUM ENZYMES SNOMED Code(s): 964460395
[2018-11-25] MEDS ORDERED: Potassium Replacement Protocol 1 EACH MISC MISCELLANE PRN (11:42)
[2018-11-25] MEDS: MULTIVITAMINS, THERA 1 EACH TAB PO SCH (11:53)
[2018-11-25] MEDS: POTASSIUM CHLORIDE ER 20 MEQ TAB.ER PO SCH ×2 (11:53→12:53)
[2018-11-25] MEDS ORDERED: Magnesium Replacement Protocol 1 EACH MISC MISCELLANE PRN (14:38)
[2018-11-25] MEDS: LACTATED RINGERS 1,000 ML IV SCH (14:40)
[2018-11-25] MEDS: MAGNESIUM SULFATE-D5W PMX 1 GM in DEXTROSE/WATER 1 100ML.BAG IVPB SCH ×3 (15:14→17:27)
[2018-11-25] MEDS ORDERED: POTASSIUM CHLORIDE ER 20 MEQ TAB.ER PO SCH (17:00)
--- NOTE | 2018-11-26 00:40 | PN ---
PROGRESS NOTE DATE OF SERVICE: 11/25/2018. PRESENTING COMPLAINT: Tired. INTERVAL HISTORY: This is a long-standing alcoholic with known cirrhosis, presented with vertex encephalopathy, acute alcohol intoxication, acute GI bleed. The patient continues to do well, sitting up in a chair, tolerating a diet. Double vision has resolved. Walking much better. Confusion has resolved. Seen by Dr. Mg earlier today. Contemplating repeat EGD on Tuesday. The patient did have a dark stool earlier. REVIEW OF SYSTEMS: Done for constitutional, cardiovascular, GI, pulmonary, neurological; relevant findings as above. CURRENT MEDICATIONS: Reviewed, that include: 1. LR. 2. Lactulose. 3. IV thiamine. 4. Vitamin K. PHYSICAL EXAMINATION: Temperature 98.7, pulse 85, respirations 16, blood pressure 120/78, pulse 95% on room air. GENERAL APPEARANCE: Sitting up in a chair comfortable. EYES: Pupils equal. Conjunctiva icteric. NECK: JVD not raised. Mass not palpable. Respiratory effort normal. LUNGS: Decreased breath sounds. CARDIOVASCULAR: 1st and 2nd heart sounds. No edema. ABDOMEN: Soft, nontender. Liver and spleen not palpable. PSYCHIATRY: Alert and oriented x3. Mood and affect is normal. INVESTIGATIONS: White count 3.8, hemoglobin 12.5, potassium 3.3, bilirubin 6.1, AST 88, lipase 511. ASSESSMENT: 1. Acute encephalopathy, has responded well to IV thiamine, secondary to alcoholism. 2. Cirrhosis secondary to chronic alcoholism. 3. Acute alcohol intoxication on presentation. 4. Hypoalbuminemia from chronic liver disease. 5. Hyperbilirubinemia. 6. Coagulopathy secondary to chronic liver disease from cirrhosis. 7. Thrombocytopenia from chronic liver disease. 8. Essential hypertension. 9. Gastroesophageal reflux disease. 10.Chronic nicotine dependence, patient is a cigarette smoker. 11.Portal hypertension from cirrhosis. 12.Hydropic gallbladder with cholelithiasis. No surgical intervention per Surgery. 13.Acute alcoholic pancreatitis with significant improvement. PLAN: Dr. Mg already saw the patient, planning to do a repeat EGD on Tuesday because of dark stools. Will switch the patient to p.o. thiamine tomorrow. Check CBC. MMODL / IJN: [id number] /
[2018-11-26] MEDS: PANTOPRAZOLE 40 MG TABLET PO SCH (08:35)
[2018-11-26] MEDS: MULTIVITAMINS, THERA 1 EACH TAB PO SCH (08:35)
[2018-11-26] MEDS: ESCITALOPRAM 20 MG TAB PO SCH (08:35)
[2018-11-26] MEDS: MAGNESIUM OXIDE 400 MG TAB PO SCH (08:35)
[2018-11-26] MEDS: LACOSAMIDE 150 MG TABLET PO SCH ×2 (08:35→21:11)
[2018-11-26] MEDS: TOPIRAMATE 25 MG TAB PO SCH ×2 (08:35→21:11)
[2018-11-26] MEDS: LACOSAMIDE 50 MG TABLET PO SCH ×2 (08:35→21:11)
[2018-11-26] MEDS: THIAMINE 100 MG in SODIUM CHLORIDE 0.9% 100 ML IVPB SCH (08:36)
[2018-11-26] MEDS: LACTULOSE 20 GM/30 ML CUP PO SCH ×2 (08:36→21:11)
[2018-11-26 10:07] LABS: Anion Gap 4 mmol/L; Blood Urea Nitrogen 6 mg/dL (7-17); Calcium 7.9 mg/dL (8.4-10.2); Carbon Dioxide 25 mmol/L (22-30); Chloride 111 mmol/L (98-107); Glucose 112 mg/dL (74-99); Magnesium 1.8 mg/dL (1.6-2.3); Potassium 3.9 mmol/L (3.5-5.1); Sodium 140 mmol/L (137-145)
[2018-11-26 10:15] LABS: HCT 38.5 % (34.0-46.0); HGB 12.2 gm/dL (11.4-16.0); MCH 35.6 pg (25.0-35.0); MCHC 31.6 g/dL (31.0-37.0); MCV 112.7 fL (80.0-100.0); Macrocytosis Marked; Mean Platelet Volume 7.8; RBC 3.42 m/uL (3.80-5.40); RDW 14.4 % (11.5-15.5)
--- NOTE | 2018-11-26 10:17 | PN ---
PROGRESS NOTE Patient is a 52-year-old pleasant white female admitted to the hospital with epigastric pain, black tarry stools for the last 3-4 days duration, history of heavy alcohol abuse and is noted to have elevated LFTs as well as serum transaminases. CT of the abdomen showed dilated CBD and hydrops of the gallbladder. This morning she is feeling better. She has no further episodes of black stools. No nausea, vomiting. On a regular diet tolerating well. PHYSICAL EXAMINATION: She appears comfortable, no apparent distress. Blood pressure is 123/78, pulse 85, temperature 98.7. HEENT examination. unremarkable. Conjunctivae pink. Sclerae anicteric. Oral cavity no lesions. No jugular venous distention or lymph node enlargement. Chest was clear to auscultation. HEART: Regular rate and rhythm. Abdomen is soft. It was nontender, nondistended. Bowel sounds are positive. No organomegaly. EXTREMITIES: No pedal edema. SKIN: No rashes. NEURO: Alert and oriented x3. No focal deficits. LABS: WBC 3.4, hemoglobin 12.7, platelets 34,000. INR 1.5, T bilirubin 6.1, AST 88, ALT 32, alkaline phosphatase 94, ammonia 65. IMPRESSION: 1. Alcoholic cirrhosis with portal hypertension and a component of acute alcoholic hepatitis. 2. Mild coagulopathy secondary to underlying chronic liver disease. 3. History of heavy alcohol abuse. 4. Black tarry stools for the last 1 week duration. Clinically no evidence of active bleeding presently. Her hemoglobin remains stable at 12.3 g/dL. 5. Thrombocytopenia secondary to underlying chronic liver disease/cirrhosis of the liver. RECOMMENDATIONS: 1. Abstinence from alcohol. 2. Continue with Protonix 40 mg daily. 3. We will proceed with an upper endoscopy tomorrow. Discussed with the patient risks, benefits, and complications of the procedure and she is agreeable to it. Thank you for this consultation. MMODL / IJN: [id number] /
[2018-11-26] MEDS: LACTATED RINGERS 1,000 ML IV SCH (10:25)
[2018-11-26 10:38] LABS: Platelet Count 50 k/uL (150-450)
[2018-11-26 13:09] LABS: Band Neutrophils % 3 %; Eosinophils # (M) 0.05 k/uL (0-0.7); Monocytes # (M) 0.05 k/uL (0-1.0); Neutrophils % (M) 79 %; Nucleated Red Blood Cells 0 /100 WBC (0-0); Total Cells Counted 100
[2018-11-26] MEDS: THIAMINE 100 MG TAB PO SCH (21:11)
[2018-11-26] MEDS: PHYTONADIONE ORAL 5 MG/5 ML ORAL.SYRG PO SCH (21:11)
--- NOTE | 2018-11-26 21:55 | PN ---
PROGRESS NOTE DATE OF SERVICE: 11/26/2018 PRESENTING COMPLAINT: Tired. INTERVAL HISTORY: This patient is a longstanding alcoholic with known cirrhosis, presents with Wernicke encephalopathy, acute alcohol intoxication, acute GI bleed. The patient doing much better, up and about. Neuro symptoms are completely resolved. Because of dark stools for a week, Dr. Mg is going to be doing an EEG tomorrow. The patient is otherwise up and about. REVIEW OF SYSTEMS: Done for constitutional, cardiovascular, GI, pulmonary; relevant findings above. CURRENT MEDICATIONS: Reviewed and include IV Thiamin, lactulose. PHYSICAL EXAMINATION: VITAL SIGNS: Temperature 98.6, pulse 72, respirations 16, blood pressure 129/84, pulse ox 98% on room air. GENERAL APPEARANCE: Comfortable. Awake. EYES: Pupils equal. Conjunctivae icterus. NECK: JVD not raised. Mass not palpable. RESPIRATORY: Effort normal. LUNGS: Decreased breath sounds. CARDIOVASCULAR: 1st and 2nd sounds normal. No edema. ABDOMEN: Soft, nontender. Liver and spleen not palpable. PSYCHIATRY: Alert and oriented x3. Mood and affect normal. INVESTIGATIONS: White count 5, hemoglobin 12.2, platelets 50, potassium 3.9. ASSESSMENT: 1. Acute Wernicke encephalopathy. Responded well to IV thiamine secondary to alcoholism. 2. Cirrhosis secondary to chronic alcoholism. 3. Acute alcohol intoxication on presentation. 4. Hyperlipidemia from chronic liver disease. 5. Hyperbilirubinemia. 6. Coagulopathy secondary to chronic liver disease from cirrhosis. 7. Thrombocytopenia from chronic liver disease. 8. Essential hypertension. 9. Gastroesophageal reflux disease. 10.Chronic nicotine dependence, patient is a cigarette smoker. 11.Portal hypertension from cirrhosis. 12.Hydropic gallbladder with cholelithiasis. No surgical intervention per surgery. 13.Alcoholic pancreatitis with symptom improvement. PLAN: Patient awaiting EGD for tomorrow. We will switch the patient to p.o. thiamin. Otherwise, patient overall doing much better. MMODL / IJN: [id number] /
[2018-11-27 02:01] VITALS: RESP 18
[2018-11-27] MEDS: LACTATED RINGERS 1,000 ML IV SCH (06:24)
[2018-11-27] MEDS ORDERED: IV FLUID CONTINUATION 1,000 ML IV ONE (10:40)
[2018-11-27] MEDS ORDERED: PROPOFOL 10 MG/ML 20 ML VIAL IV ONE (10:49)
[2018-11-27] MEDS ORDERED: LIDOCAINE 1% INJ 10MG/ML (20 ML MDV) ONE (10:49)
[2018-11-27] MEDS: LACTULOSE 20 GM/30 ML CUP PO SCH (11:18)
[2018-11-27] MEDS: MAGNESIUM OXIDE 400 MG TAB PO SCH (11:19)
[2018-11-27] MEDS: LACOSAMIDE 50 MG TABLET PO SCH (11:19)
[2018-11-27] MEDS: PANTOPRAZOLE 40 MG TABLET PO SCH (11:19)
[2018-11-27] MEDS: THIAMINE 100 MG TAB PO SCH (11:19)
[2018-11-27] MEDS: LACOSAMIDE 150 MG TABLET PO SCH (11:19)
[2018-11-27] MEDS: TOPIRAMATE 25 MG TAB PO SCH (11:19)
[2018-11-27] MEDS: ESCITALOPRAM 20 MG TAB PO SCH (11:19)
[2018-11-27] MEDS: MULTIVITAMINS, THERA 1 EACH TAB PO SCH (11:21)
--- NOTE | 2018-11-27 11:23 | P.PCN ---
Date of Procedure: 11/27/18 Description of Procedure: BRIEF HISTORY: 52-year-old female with a history of long-standing EtOH abuse drinks bourbon on a daily basis, underlying alcohol liver disease cirrhosis, ascites, portal hypertension, paracentesis, pancreatitis, admitted with upper abdominal pain and mixed red black colored bowel movements 1 day. Denies gross hematemesis or hematochezia. No history of upper GI bleed, EGD or colonoscopy. No aspirin or NSAIDs. Afebrile. White count 4.8. Hemoglobin 14.2 presently 12.3. Platelet 52,000. INR 1.5. BUN 9. Creatinine 0.6. Total bilirubin 3.4. AST 105. ALT 39. AP 155. Ammonia 39. Serum alcohol 358. Lipase 922. FOBT positive. PROCEDURE PERFORMED: Esophagogastroduodenoscopy with biopsy. PREOPERATIVE DIAGNOSIS: Epigastric abdominal pain, melena, alcoholic cirrhosis. ESTIMATED BLOOD LOSS: Minimal. IV sedation per anesthesia. PROCEDURE: After informed consent was obtained, the patient was brought into the endoscopy unit. IV sedation was administered by Anesthesia under continuous monitoring. Initially the Olympus GIF-190 video endoscope was inserted into the mouth. Esophagus intubated without any difficulty. It was gradually advanced into the stomach and duodenum and carefully examined. The bulb and the second part of the duodenum appeared normal. The scope at this time was withdrawn to the stomach, adequately insufflated with air, and upon careful examination, mucosa of the antrum, body, cardia and the fundus appeared grossly normal, with mild scattered erythema in the antrum and body suggestive of gastritis with biopsies taken. The scope was then withdrawn into the esophagus. The GE junction was located at 35 cm from the incisors. The esophagus appeared normal. There were no erosions or ulcerations or varices seen and the patient tolerated the procedure well. IMPRESSION: 1. No old blood or evidence of active bleeding. No esophageal varices noted.. 2. Mild scattered erythema of the antrum and body, biopsied. RECOMMENDATIONS: The findings of this examination were discussed with the patient. Okay to resume diet. Continue to monitor hemoglobin and hematocrit. Continue alcohol abstinence. Await pathology from biopsies. Follow up with gastroenterology in the outpatient setting for continued management of cirrhosis.
[2018-11-27 14:47] VITALS: BP 133/85; PULSE 78; TEMP 97.7
--- NOTE | 2018-11-29 10:26 | DS ---
DISCHARGE SUMMARY DATE OF ADMISSION: 11/22/2018 DATE OF DISCHARGE: 11/27/2018 FINAL DIAGNOSES: 1. Acute Wernicke encephalopathy secondary to thiamine deficiency from cirrhosis and alcoholism. 2. Cirrhosis secondary to chronic alcoholism. 3. Acute alcohol intoxication on presentation. 4. Hyperlipidemia from chronic liver disease. 5. Hyperbilirubinemia. 6. Coagulopathy secondary to chronic liver disease from cirrhosis. 7. Thrombocytopenia from chronic liver disease. 8. Essential hypertension. 9. Gastroesophageal reflux disease. 10.Chronic nicotine dependence, patient is a cigarette smoker. 11.Secondary portal hypertension from cirrhosis. 12.Hydropic gallbladder with cholelithiasis, no surgical intervention per Surgery. 13.Acute alcoholic pancreatitis from alcoholism. HOSPITAL COURSE: This patient presented with double vision, difficulty walking, confusion, felt to have acute Wernicke encephalopathy which did respond well to IV thiamine. Patient also had some dark stool. Did undergo EGD by Dr. Dean. No esophageal varices were noted, patient had no further dark stools. Patient did have a CT scan of the abdomen and pelvis that showed cirrhosis with portal venous hypertension and hydropic gallbladder with cholelithiasis. Patient was seen by Dr. Holliday from General Surgery, not for any surgical intervention. Patient is really doing much better by the time of discharge, up and about, tolerating a diet. No further confusion. No trouble walking. Care was discussed at length with the patient and about complete cessation of alcohol. PHYSICAL EXAMINATION: Temperature 98.8, pulse 75, respiration 18, blood pressure 108/76, pulse ox 96% on room air. LUNGS: Fair air entry. CARDIOVASCULAR: First and second sound are normal. ABDOMEN: Soft, nontender. INVESTIGATION: White count 5, hemoglobin 12.2, potassium 3.9. Patient's AST 88, ALT 32, lipase was up, it was coming down. DISCHARGE MEDICATIONS: 1. Vitamin D3 one thousand units p.o. daily. 2. Protonix 40 mg daily. 3. Vimpat 200 mg b.i.d. 4. Magnesium oxide 500 mg p.o. daily. 5. Centrum Silver 1 tablet p.o. daily. 6. 1-2 drops both eyes q.8. 7. Topamax 25 mg p.o. b.i.d. 8. Atenolol 25 mg p.o. daily. 9. Lexapro 20 mg p.o. daily. 10.Antabuse 500 mg p.o. daily for 7 days then 250 mg a day. 11.Lactulose 20 g p.o. b.i.d. 12.Thiamine 100 mg p.o. b.i.d. FOLLOWUP: Follow up with Dr. Avinash Murguia in [place] on 12/01/2018; follow up with Dr. Cuauhtemoc Dean at 12/05/2018. MMODL / IJN: [id number] /
== END 2018-11-27 17:02 | disposition home or self-care (01) | DRG 897 ==
LOC: EC 15:09 → 4MS4W 17:07 → OBSVTOIN 22:30
PROVIDERS: ADMIT Hospitalist; ATTEND Hospitalist
PROC: 0DB68ZX Excision of Stomach, Via Natural or Artificial Opening Endoscopic, Diagnostic (ICD-10-PCS; principal; 2018-11-27 08:05)
DX: F10.229 Alcohol dependence with intoxication, unspecified (principal); E51.2 Wernicke's encephalopathy; K76.6 Portal hypertension; K82.1 Hydrops of gallbladder; D68.9 Coagulation defect, unspecified; K70.31 Alcoholic cirrhosis of liver with ascites; Y90.8 Blood alcohol level of 240 mg/100 ml or more; K21.9 Gastro-esophageal reflux disease without esophagitis; F17.210 Nicotine dependence, cigarettes, uncomplicated; I10 Essential (primary) hypertension; F41.9 Anxiety disorder, unspecified; E78.5 Hyperlipidemia, unspecified; D69.59 Other secondary thrombocytopenia; K80.20 Calculus of gallbladder without cholecystitis without obstruction; K83.8 Other specified diseases of biliary tract; D25.9 Leiomyoma of uterus, unspecified; Z91.81 History of falling
CPT/HCPCS: 36415; 43239; 71046; 74018; 74177; 80048; 80053; 80320; 81025; 82105; 82140; 82248; 82272; 82550; 82553; 82607; 83690; 83735; 84132; 84484; 85025; 85610; 85730; 86850; 86900; 86901; 88305; 93005; 96361; 96372; 96374; 99285

== ENCOUNTER 2018-12-20 11:01 | Inpatient (IN) | payer BC ==
[2018-12-20] MEDS ORDERED: ONDANSETRON 4 MG/2 ML VIAL IVP STA (11:12)
[2018-12-20] MEDS ORDERED: DICYCLOMINE 10 MG/ML 2 ML AMP IM STA (11:12)
[2018-12-20] MEDS ORDERED: SODIUM CHLORIDE 0.9% 500 ML 500 ML IV STA (11:12)
[2018-12-20] MEDS ORDERED: FAMOTIDINE 20 MG/2 ML VIAL IV STA (11:13)
--- NOTE | 2018-12-20 11:16 | ED ---
General Adult HPI - General Chief complaint: Abdominal Pain Stated complaint: Abd discomfort Time Seen by Provider: 12/20/18 11:08 Source: patient, EMS, RN notes reviewed Mode of arrival: EMS Limitations: no limitations - History of Present Illness Initial comments: Patient is a pleasant 53-year-old female presenting to the emergency Department with abdominal discomfort. Onset of symptoms was a couple of days ago, worse last night. Discomfort is mostly upper abdomen. Patient has some nausea associated with food and has vomited a couple of times. Patient had similar symptoms once previously when she had a scope done. Patient states results look good with a scope at that point. Patient does have a history of alcohol use however no longer drinks alcohol. No constipation or diarrhea. No fever. No radiation of pain. - Related Data Home Medications Medication Instructions Recorded Confirmed Cholecalciferol [Vitamin D3] 1,000 unit PO DAILY 06/19/14 12/20/18 Lacosamide [Vimpat] 200 mg PO BID 07/29/18 12/20/18 Magnesium Oxide [Cramer] 500 mg PO DAILY 07/29/18 12/20/18 Multivit-Min/Iron/Folic/Lutein 1 tab PO DAILY 07/29/18 12/20/18 [Centrum Silver Women Tablet] Olopatadine HCl 1 - 2 drop BOTH EYES Q8H 07/29/18 12/20/18 Topiramate [Topamax] 25 mg PO BID 07/29/18 12/20/18 Atenolol 25 mg PO DAILY 11/22/18 12/20/18 Escitalopram [Lexapro] 20 mg PO DAILY 11/22/18 12/20/18 Disulfiram [Antabuse] 250 mg PO DAILY 12/20/18 12/20/18 Potassium 99 mg PO DAILY 12/20/18 12/20/18 Previous Rx's Medication Instructions Recorded Pantoprazole [Protonix] 40 mg PO DAILY #30 tablet. 01/27/16 Thiamine [Vitamin B-1] 100 mg PO BID #60 tab 11/27/18 Allergies Allergy/AdvReac Type Severity Reaction Status Date / Time No Known Allergies Allergy Verified 12/20/18 11:49 Review of Systems ROS Statement: Those systems with pertinent positive or pertinent negative responses have been documented in the HPI. ROS Other: All systems not noted in ROS Statement are negative. Constitutional: Denies: fever Eyes: Denies: eye pain ENT: Denies: ear pain Respiratory: Denies: cough Cardiovascular: Denies: chest pain Endocrine: Denies: fatigue Gastrointestinal: Reports: abdominal pain, nausea Genitourinary: Denies: dysuria Musculoskeletal: Denies: back pain Skin: Denies: rash Neurological: Denies: weakness Past Medical History Past Medical History: Asthma, CVA/TIA, Hypertension, Pneumonia Additional Past Medical History / Comment(s): 01-22-16 C/O SKIN DISCOLORATION( JAUNDICE),ABD PAIN/DISTENTION, LEG EDEMA AND 20 POUND WT GAIN IN 2 WEEKS.CLINICAL IMPRESSION :ACUTE LIVER FAILURE. OTHER PAST MEDICAL HX INCLUSED UTI'S,ARTHRITIS, KIDNEY STONES ,OCC HEART BURN,IN AUG 2015 WENT TO [facility] C/O CHEST PAIN-TESTING IN NEG.SINUS PROBLES, HEMORROIDS/CONSTIPATION-LAST BM TODAY(01-22-16 SMALL HARD STATED HAD STREAK OF BLOOD ) History of Any Multi-Drug Resistant Organisms: None Reported Past Surgical History: Section, Tonsillectomy Additional Past Surgical History / Comment(s): X2 C-SECTIONS, WHEN AGE 7 HAD A SCOPE DONE -TOLD SHE HAD A NERVOUS STOMACH Past Anesthesia/Blood Transfusion Reactions: No Reported Reaction Additional Past Anesthesia/Blood Transfusion Reaction / Comment(s): CLAUSTERPHOBIA Past Psychological History: Anxiety Smoking Status: Former smoker Past Alcohol Use History: Daily Past Drug Use History: None Reported - Past Family History Father Additional Family Medical History / Comment(s): [employer] Mother Family Medical History: Coronary Artery Disease (CAD), Diabetes Mellitus, Hypertension, Pneumonia, Thyroid Disorder Additional Family Medical History / Comment(s): GOUT,X3 STENTS General Exam Limitations: no limitations General appearance: alert, in no apparent distress Head exam: Present: atraumatic Eye exam: Present: normal appearance, PERRL ENT exam: Present: normal oropharynx Neck exam: Present: normal inspection Respiratory exam: Present: normal lung sounds bilaterally Cardiovascular Exam: Present: regular rate, normal rhythm Expanded Peripheral pulses: 2+: Posterior Tibialis (R), Posterior Tibialis (L) GI/Abdominal exam: Present: soft, tenderness (Mild epigastric tenderness). Absent: distended Extremities exam: Present: normal inspection. Absent: pedal edema, calf tenderness Neurological exam: Present: alert Psychiatric exam: Present: normal affect, normal mood Skin exam: Present: normal color Course Vital Signs 12/20/18 12/20/18 11:07 13:10 Temperature 98.4 F Pulse Rate 96 77 Respiratory 18 18 Rate Blood Pressure 137/96 149/97 O2 Sat by Pulse 97 98 Oximetry Medical Decision Making - Medical Decision Making Patient reevaluated and improved. Abdomen soft and nontender. Patient has previously seen Dr. vasquez and Dr. Grigsby who will be consult. Case was discussed in detail with Dr. Spencer, who will admit For Dr. Gibbons, who covers for - Lab Data Result diagrams: 12/20/18 11:18 12/20/18 11:18 Lab Results 12/20/18 12/20/18 12/20/18 Range/Units 11:18 11:18 11:18 WBC 12.6 H (3.8-10.6) k/uL RBC 4.36 (3.80-5.40) m/uL Hgb 15.1 (11.4-16.0) gm/dL Hct 44.1 (34.0-46.0) % MCV 101.0 H D (80.0-100.0) fL MCH 34.6 (25.0-35.0) pg MCHC 34.2 (31.0-37.0) g/dL RDW 13.6 (11.5-15.5) % Plt Count 94 L D (150-450) k/uL Neutrophils % (Manual) 79 % Lymphocytes % (Manual) 15 % Monocytes % (Manual) 5 % Eosinophils % (Manual) 1 % Neutrophils # (Manual) 9.95 H (1.3-7.7) k/uL Lymphocytes # (Manual) 1.89 (1.0-4.8) k/uL Monocytes # (Manual) 0.63 (0-1.0) k/uL Eosinophils # (Manual) 0.13 (0-0.7) k/uL Nucleated RBCs 0 (0-0) /100 WBC Poikilocytosis (manual Present Anisocytosis (manual) Present Macrocytosis Slight PT 16.7 H (9.0-12.0) sec INR 1.7 H (<1.2) APTT 33.0 H (22.0-30.0) sec Sodium 139 (137-145) mmol/L Potassium 3.3 L (3.5-5.1) mmol/L Chloride 106 (98-107) mmol/L Carbon Dioxide 24 (22-30) mmol/L Anion Gap 9 mmol/L BUN 12 (7-17) mg/dL Creatinine 0.59 (0.52-1.04) mg/dL Est GFR (CKD-EPI)AfAm >90 (>60 ml/min/1.73 sqM) Est GFR (CKD-EPI)NonAf >90 (>60 ml/min/1.73 sqM) Glucose 107 H (74-99) mg/dL Calcium 9.0 (8.4-10.2) mg/dL Total Bilirubin 7.3 H (0.2-1.3) mg/dL AST 55 H (14-36) U/L ALT 39 (9-52) U/L Alkaline Phosphatase 161 H (38-126) U/L Total Protein 6.7 (6.3-8.2) g/dL Albumin 3.0 L (3.5-5.0) g/dL Amylase 84 (30-110) U/L Lipase 340 H (23-300) U/L Urine Color Urine Appearance (Clear) Urine pH (5.0-8.0) Ur Specific [place] (1.001-1.035) Urine Protein (Negative) Urine Glucose (UA) (Negative) Urine Ketones (Negative) Urine Blood (Negative) Urine Nitrite (Negative) Urine Bilirubin (Negative) Urine Urobilinogen (<2.0) mg/dL Ur Leukocyte Esterase (Negative) Serum Alcohol mg/dL 12/20/18 12/20/18 Range/Units 11:18 11:30 WBC (3.8-10.6) k/uL RBC (3.80-5.40) m/uL Hgb (11.4-16.0) gm/dL Hct (34.0-46.0) % MCV (80.0-100.0) fL MCH (25.0-35.0) pg MCHC (31.0-37.0) g/dL RDW (11.5-15.5) % Plt Count (150-450) k/uL Neutrophils % (Manual) % Lymphocytes % (Manual) % Monocytes % (Manual) % Eosinophils % (Manual) % Neutrophils # (Manual) (1.3-7.7) k/uL Lymphocytes # (Manual) (1.0-4.8) k/uL Monocytes # (Manual) (0-1.0) k/uL Eosinophils # (Manual) (0-0.7) k/uL Nucleated RBCs (0-0) /100 WBC Poikilocytosis (manual Anisocytosis (manual) Macrocytosis PT (9.0-12.0) sec INR (<1.2) APTT (22.0-30.0) sec Sodium (137-145) mmol/L Potassium (3.5-5.1) mmol/L Chloride (98-107) mmol/L Carbon Dioxide (22-30) mmol/L Anion Gap mmol/L BUN (7-17) mg/dL Creatinine (0.52-1.04) mg/dL Est GFR (CKD-EPI)AfAm (>60 ml/min/1.73 sqM) Est GFR (CKD-EPI)NonAf (>60 ml/min/1.73 sqM) Glucose (74-99) mg/dL Calcium (8.4-10.2) mg/dL Total Bilirubin (0.2-1.3) mg/dL AST (14-36) U/L ALT (9-52) U/L Alkaline Phosphatase (38-126) U/L Total Protein (6.3-8.2) g/dL Albumin (3.5-5.0) g/dL Amylase (30-110) U/L Lipase (23-300) U/L Urine Color Light Brown Urine Appearance Clear (Clear) Urine pH 7.0 (5.0-8.0) Ur Specific [place] 1.018 (1.001-1.035) Urine Protein Trace H (Negative) Urine Glucose (UA) Negative (Negative) Urine Ketones Negative (Negative) Urine Blood Negative (Negative) Urine Nitrite Negative (Negative) Urine Bilirubin 1+ H (Negative) Urine Urobilinogen 8.0 (<2.0) mg/dL Ur Leukocyte Esterase Negative (Negative) Serum Alcohol <10 mg/dL - Radiology Data Radiology results: report reviewed (Gallbladder ultrasound shows wall thickening and distention with sludge. Underlying cirrhotic disease is present. Computed tomography scan of the abdomen pelvis shows cirrhosis and portal hypertension, cholelithiasis, fibroid uterus, hepatosplenomegaly.) Disposition Clinical Impression: Cholelithiasis, Enlarged gallbladder Disposition: ADMITTED IP TO THIS HOSP Is patient prescribed a controlled substance at d/c from ED?: No Referrals: Joe Murguia MD [Primary Care Provider] - 1-2 days Decision Time: 13:24
[2018-12-20 11:37] LABS: ALT 39 U/L (9-52); AST 55 U/L (14-36); Alkaline Phosphatase 161 U/L (38-126); Amylase 84 U/L (30-110); Anion Gap 9 mmol/L; Blood Urea Nitrogen 12 mg/dL (7-17); Carbon Dioxide 24 mmol/L (22-30); Chloride 106 mmol/L (98-107); Glucose 107 mg/dL (74-99); Lipase 340 U/L (23-300); Potassium 3.3 mmol/L (3.5-5.1); Sodium 139 mmol/L (137-145); Total Bilirubin 7.3 mg/dL (0.2-1.3); Total Protein 6.7 g/dL (6.3-8.2)
[2018-12-20 11:44] LABS: INR 1.7 (<1.2); Prothrombin Time 16.7 sec (9.0-12.0)
[2018-12-20 11:58] LABS: HCT 44.1 % (34.0-46.0); HGB 15.1 gm/dL (11.4-16.0); MCH 34.6 pg (25.0-35.0); MCHC 34.2 g/dL (31.0-37.0); Macrocytosis Slight; Mean Platelet Volume 7.8; RBC 4.36 m/uL (3.80-5.40); RDW 13.6 % (11.5-15.5); WBC 12.6 k/uL (3.8-10.6)
[2018-12-20 11:59] LABS: Platelet Count 94 k/uL (150-450)
[2018-12-20 12:07] LABS: Appearance,Urine Clear (Clear); Bilirubin,Urine 1+ (Negative); Blood,Urine Negative (Negative); Color,Urine Light Brown; Glucose,Urine (UA) Negative (Negative); Ketones,Urine Negative (Negative); Leukocyte Esterase,Urine Negative (Negative); Nitrite,Urine Negative (Negative); Protein,Urine Trace (Negative); Specific Gravity,Urine 1.018 (1.001-1.035)
[2018-12-20 12:25] LABS: Eosinophils # (M) 0.13 k/uL (0-0.7); Lymphocytes # (M) 1.89 k/uL (1.0-4.8); Monocytes # (M) 0.63 k/uL (0-1.0); Neutrophils # (M) 9.95 k/uL (1.3-7.7); Neutrophils % (M) 79 %; Nucleated Red Blood Cells 0 /100 WBC (0-0); Total Cells Counted 100
[2018-12-20 12:27] LABS: Anisocytosis (M) Present; Poikilocytosis (M) Present
--- NOTE | 2018-12-20 12:30 | CT ---
EXAMINATION TYPE: CT abdomen pelvis wo con DATE OF EXAM: 12/20/2018 COMPARISON: CT abdomen pelvis 11/23/2018 HISTORY: abd discomfort CT DLP: 390.5 mGycm Automated exposure control for dose reduction was used. TECHNIQUE: Helical acquisition of images from the lung bases through the pelvis. FINDINGS: Lack of contrast could compromise sensitivity. LUNG BASES: No significant abnormality is appreciated. AORTA: No significant abnormality is appreciataed. LIVER/GB: Nodular contour of the liver is again seen, small subcentimeter hypodensity again noted wit hin the liver. Liver is enlarged. There are varices present as on prior exam. Dependent density withi n the gallbladder compatible with stones or tumefactive sludge. PANCREAS: No significant abnormality is seen. SPLEEN: Enlarged as on prior ADRENALS: No significant abnormality is seen. KIDNEYS: No significant abnormality is seen. REPRODUCTIVE ORGANS: Probable fibroid uterus as noted on prior exam. Adnexal structures are stable. URINARY BLADDER: No significant abnormality is seen. BOWEL: No significant abnormality is seen. FREE AIR: No Free Air is visible. ASCITES: None visible. PELVIC ADENOPATHY: None visualized. RETROPERITONEAL ADENOPATHY: No Retroperitoneal Adenopathy visible. OSSEOUS STRUCTURES: No significant abnormality is seen. IMPRESSION: FINDINGS COMPATIBLE WITH CIRRHOSIS AND PORTAL HYPERTENSION. CHOLELITHIASIS. FIBROID UTERUS. HEPATOSPL ENOMEGALY. NONCONTRAST EXAM.
--- NOTE | 2018-12-20 12:55 | US ---
EXAMINATION TYPE: US gallbladder DATE OF EXAM: 12/20/2018 COMPARISON: CT CLINICAL HISTORY: Pain. Pt states epigastric pain, nausea EXAM MEASUREMENTS: Liver Length: 16.0 cm Gallbladder Wall: 0.4 cm CBD: 0.4 cm Right Kidney: 10.0 x 4.0 x 4.1 cm Pancreas: wnl, tail obscured by overlying bowel gas Liver: Lobulated contour as seen on CT, large left portal vein, multiple small probable cysts scatte red throughout Gallbladder: Distended with sludge, wall thickened Evidence for sonographic Park's sign: No CBD: wnl Right Kidney: wnl IMPRESSION: 1. Correlate for underlying cirrhotic liver disease. 2. Distended gallbladder with large amount of internal sludge and wall thickening.
[2018-12-20] MEDS ORDERED: NALOXONE 0.4 MG/ML 1 ML VIAL IV PRN (13:24)
[2018-12-20] MEDS: SODIUM CHLORIDE 0.9% 1,000 ML IV SCH (15:20)
[2018-12-20] MEDS ORDERED: HYDROcodone/APAP 5-325MG 1 EACH TAB PO PRN (16:01)
--- NOTE | 2018-12-20 16:16 | P.HPIM ---
History of Present Illness H&P Date: 12/20/18 Chief Complaint: Abdominal pain 53-year-old female with PMH of hypertension, likely liver cirrhosis presents to the ED for abdominal pain. Patient reports pain started 2 days ago. She is also noticed that she has vomited with every meal. Patient describes the vomitus as with mucus. Patient reports that the pain waxes and wanes, lasting for minutes at a time. Pain is 10 out of 10 in severity. Pain is located in the bilateral lower quadrants of the abdomen. Patient describes the pain is bandlike in nature. Pain is aggravated with food intake and alleviated with pain medication. Of note, patient reports history of alcohol abuse with the past 20 years. Patient' s drink of choice is bourbon, admitted to drinking half a fifth daily, last drink was on December 07. She denies any headaches, lower extremity edema, fever, chills, cough, chest pain, shortness of breath, palpitations, changes in urination or bowel habits. Patient was recently admitted and discharged on November 27 2018 for Wernick he encephalopathy, cirrhosis, acute alcohol intoxication, hyperbilirubinemia, alcoholic pancreatitis and hydropic gallbladder. She was evaluated by general surgery and by gastroenterology. EGD was performed and was unremarkable. CT abdomen and pelvis was done during this admission which showed cirrhosis and portal hypertension and cholelithiasis. Gallbladder ultrasound showed a distended gallbladder with large amounts of internal sludge and wall thickening. CBC showed leukocytosis of 12.6. CBC showed a macrocytosis of 101 and a platelet count of 94. Coagulation panel shows an INR 1.7. CMP showed a potassium of 3.3, total bilirubin of 7.3 and AST of 55. Alkaline phosphatase is 161. Lipase is 340. Patient is admitted for pancreatitis, elevated liver enzymes, gastroenterology evaluation. Review of Systems All systems: negative Past Medical History Past Medical History: Asthma, CVA/TIA, Hypertension, Pneumonia, Seizure Disorder Additional Past Medical History / Comment(s): Pt recently admitted to [facility] on acute wernicke encephalopathy 2ndary to thiamine deficiency from cirrhosis , ETOH abuse, alcohol intoxication, acute pancreatitis, portal htn, hyperbilirubinemia, thrombocytopenia. Other hx: Jaundice, abdominal distention, seizure once, UTIs, kidney stones, sinus problems. History of Any Multi-Drug Resistant Organisms: None Reported Past Surgical History: Section, Tonsillectomy Additional Past Surgical History / Comment(s): 11/26/18 EGD, egd when a 7yr old child Past Anesthesia/Blood Transfusion Reactions: No Reported Reaction Additional Past Anesthesia/Blood Transfusion Reaction / Comment(s): CLAUSTERPHOBIA Smoking Status: Former smoker - Past Family History Father Additional Family Medical History / Comment(s): [employer]. Father is 83 yrs old. Mother Family Medical History: Coronary Artery Disease (CAD), Diabetes Mellitus, Hypertension, Pneumonia, Thyroid Disorder Additional Family Medical History / Comment(s): Mother has 3 coronary stents, gout. She is 80yrs old. Medications and Allergies Home Medications Medication Instructions Recorded Confirmed Type Cholecalciferol [Vitamin D3] 1,000 unit PO DAILY 06/19/14 12/20/18 History Pantoprazole [Protonix] 40 mg PO DAILY #30 tablet. 01/27/16 12/20/18 Rx Lacosamide [Vimpat] 200 mg PO BID 07/29/18 12/20/18 History Magnesium Oxide [Cramer] 500 mg PO DAILY 07/29/18 12/20/18 History Multivit-Min/Iron/Folic/Lutein 1 tab PO DAILY 07/29/18 12/20/18 History [Centrum Silver Women Tablet] Olopatadine HCl 1 - 2 drop BOTH EYES Q8H 07/29/18 12/20/18 History Topiramate [Topamax] 25 mg PO BID 07/29/18 12/20/18 History Atenolol 25 mg PO DAILY 11/22/18 12/20/18 History Escitalopram [Lexapro] 20 mg PO DAILY 11/22/18 12/20/18 History Thiamine [Vitamin B-1] 100 mg PO BID #60 tab 11/27/18 12/20/18 Rx Disulfiram [Antabuse] 250 mg PO DAILY 12/20/18 12/20/18 History Potassium 99 mg PO DAILY 12/20/18 12/20/18 History Allergies Allergy/AdvReac Type Severity Reaction Status Date / Time No Known Allergies Allergy Verified 12/20/18 11:49 Physical Exam Vitals: Vital Signs Temp Pulse Pulse Resp BP BP Pulse Ox 12/20/18 15:16 98.4 F 81 18 146/84 94 L 12/20/18 14:38 98.3 F 86 18 151/97 98 12/20/18 13:10 77 18 149/97 98 12/20/18 11:07 98.4 F 96 18 137/96 97 Intake and Output 12/20/18 12/20/18 12/20/18 06:59 14:59 22:59 Other: Weight 68.039 kg General: [non toxic], [no distress], [appears at stated age] Derm: [warm], [dry] Head: [atraumatic], [normocephalic], [symmetric] Eyes: [EOMI], [no lid lag], [anicteric sclera] Mouth: [no lip lesion], [mucus membranes moist] Cardiovascular: [S1S2 reg], [no murmur], [positive DP pulse bilateral] Lungs: [CTA bilateral], [no rhonchi, no rales] , [no accessory muscle use] Abdominal: [soft], [generalized tenderness to palpation in all 4 quadrants without rebound], [no guarding], [no appreciable organomegaly] Ext: [no gross muscle atrophy], [no edema], [no contractures] Neuro: [ CN II-XI grossly intact], [no focal neuro deficits] Psych: [Alert], [oriented], [appropriate affect] Results CBC & Chem 7: 12/20/18 11:18 12/20/18 11:18 Labs: Abnormal Lab Results - Last 24 Hours (Table) 12/20/18 12/20/18 12/20/18 Range/Units 11:18 11:18 11:18 WBC 12.6 H (3.8-10.6) k/uL MCV 101.0 H D (80.0-100.0) fL Plt Count 94 L D (150-450) k/uL Neutrophils # (Manual) 9.95 H (1.3-7.7) k/uL PT 16.7 H (9.0-12.0) sec INR 1.7 H (<1.2) APTT 33.0 H (22.0-30.0) sec Potassium 3.3 L (3.5-5.1) mmol/L Glucose 107 H (74-99) mg/dL Total Bilirubin 7.3 H (0.2-1.3) mg/dL AST 55 H (14-36) U/L Alkaline Phosphatase 161 H (38-126) U/L Albumin 3.0 L (3.5-5.0) g/dL Lipase 340 H (23-300) U/L Urine Protein (Negative) Urine Bilirubin (Negative) 12/20/18 Range/Units 11:30 WBC (3.8-10.6) k/uL MCV (80.0-100.0) fL Plt Count (150-450) k/uL Neutrophils # (Manual) (1.3-7.7) k/uL PT (9.0-12.0) sec INR (<1.2) APTT (22.0-30.0) sec Potassium (3.5-5.1) mmol/L Glucose (74-99) mg/dL Total Bilirubin (0.2-1.3) mg/dL AST (14-36) U/L Alkaline Phosphatase (38-126) U/L Albumin (3.5-5.0) g/dL Lipase (23-300) U/L Urine Protein Trace H (Negative) Urine Bilirubin 1+ H (Negative) Thrombosis Risk Factor Assmnt - Choose All That Apply Any of the Below Risk Factors Present?: Yes Each Factor Represents 1 point: Age 41-60 years Other Risk Factors: No Other congenital or acquired thrombophilia - If yes, enter type in comment: No Thrombosis Risk Factor Assessment Total Risk Factor Score: 1 Thrombosis Risk Factor Assessment Level: Low Risk Assessment and Plan Assessment: Assessment and Plan 1. Abdominal pain likely secondary to pancreatitis 2. Hyperbilirubinemia 3. Low potassium 4. Leukocytosis 5. Macrocytosis 6. Thrombocytopenia 7. Abnormal INR 1. CT abdomen and pelvis shows cirrhosis, portal hypertension, cholelithiasis and hepatosplenomegaly. Gallbladder ultrasound shows a distended gallbladder with large amount of internal sludge and wall thickening. Lipase is 340. Pain management with Tylenol, morphine 4 mg IV every 4 hours as needed. Zofran as needed for nausea and vomiting. Protonix 40 g IV daily. Nothing by mouth and advance diet as tolerated. Will follow gastroenterology consult. 2. Total bilirubin is 7.3, AST of 55 and alkaline phosphatase of 161. Likely secondary to cirrhosis. Will follow gastroenterology consult for additional recommendations. 3. Potassium is 3.3. Replaced. 4. Leukocytosis of 12.6. This is likely reactive secondary to pancreatitis. Daily CBC. 5. MCV is 101. Likely secondary to alcohol abuse. Daily CBC. 6. Platelet count of 94. Likely secondary to alcohol abuse. Daily CBC. 7. INR 1.7. Likely secondary to alcohol abuse. Daily coags panels. Patient admitted for pancreatitis, gastroenterology on consult. Possible discharge in 1-2 days. Patient elected discuss with her prior to announcing her CODE STATUS.
[2018-12-20] MEDS: THIAMINE 100 MG TAB PO SCH (20:51)
[2018-12-20] MEDS: TOPIRAMATE 25 MG TAB PO SCH (20:51)
[2018-12-20] MEDS: LACOSAMIDE 50 MG TABLET PO SCH (20:51)
[2018-12-20] MEDS ORDERED: KETOTIFEN 0.025% OPHTH DROPS 5 ML BTL BOTH EYES PRN (21:00)
[2018-12-20] MEDS: MORPHINE SULFATE 4 MG/ML SYRINGE IV PRN (21:18)
[2018-12-21] MEDS: SODIUM CHLORIDE 0.9% 1,000 ML IV SCH ×3 (00:43→18:06)
[2018-12-21] MEDS ORDERED: POTASSIUM CHLORIDE ER 20 MEQ TAB.ER PO STA (07:52)
[2018-12-21 07:55] LABS: ALT 35 U/L (9-52); AST 51 U/L (14-36); Albumin 2.6 g/dL (3.5-5.0); Alkaline Phosphatase 132 U/L (38-126); Anion Gap 8 mmol/L; Blood Urea Nitrogen 10 mg/dL (7-17); Calcium 8.4 mg/dL (8.4-10.2); Carbon Dioxide 23 mmol/L (22-30); Chloride 112 mmol/L (98-107); Glucose 76 mg/dL (74-99); Potassium 3.4 mmol/L (3.5-5.1); Sodium 143 mmol/L (137-145); Total Bilirubin 6.3 mg/dL (0.2-1.3); Total Protein 5.9 g/dL (6.3-8.2)
[2018-12-21 07:56] LABS: Basophils % (A) 0 %; Eosinophils # (A) 0.3 k/uL (0-0.7); Eosinophils % (A) 3 %; HCT 41.9 % (34.0-46.0); HGB 14.2 gm/dL (11.4-16.0); Lymphocytes # (A) 1.8 k/uL (1.0-4.8); Lymphocytes % (A) 22 %; MCH 35.3 pg (25.0-35.0); MCV 103.7 fL (80.0-100.0); Macrocytosis Slight; Mean Platelet Volume 7.5; Monocytes # (A) 0.6 k/uL (0-1.0); Monocytes % (A) 8 %; Neutrophils # (A) 4.9 k/uL (1.3-7.7); Neutrophils % (A) 62 %; Platelet Count 77 k/uL (150-450); RBC 4.04 m/uL (3.80-5.40); RDW 13.9 % (11.5-15.5)
--- NOTE | 2018-12-21 08:07 | P.GSCN ---
History of Present Illness Consult date: 12/20/18 History of present illness: Patient seen and evaluated. Patient noted from recent admission in 30 days. Patient history of liver cirrhosis. Symptoms consistent with symptomatic cholelithiasis. Recommend GI consultation for possible common bile duct stones as she has a large common bile duct. Recommend evaluation for ERCP prior to cholecystectomy. Past Medical History Past Medical History: Asthma, CVA/TIA, Hypertension, Pneumonia, Seizure Disorder Additional Past Medical History / Comment(s): Pt recently admitted to [facility] on acute wernicke encephalopathy 2ndary to thiamine deficiency from cirrhosis , ETOH abuse, alcohol intoxication, acute pancreatitis, portal htn, hyperbilirubinemia, thrombocytopenia. Other hx: Jaundice, abdominal distention, seizure once, UTIs, kidney stones, sinus problems. History of Any Multi-Drug Resistant Organisms: None Reported Past Surgical History: Section, Tonsillectomy Additional Past Surgical History / Comment(s): 11/26/18 EGD, egd when a 7yr old child Past Anesthesia/Blood Transfusion Reactions: No Reported Reaction Additional Past Anesthesia/Blood Transfusion Reaction / Comm: CLAUSTERPHOBIA Smoking Status: Former smoker - Past Family History Father Additional Family Medical History / Comment(s): [employer]. Father is 83 yrs old. Mother Family Medical History: Coronary Artery Disease (CAD), Diabetes Mellitus, Hypertension, Pneumonia, Thyroid Disorder Additional Family Medical History / Comment(s): Mother has 3 coronary stents, gout. She is 80yrs old. Medications and Allergies Home Medications Medication Instructions Recorded Confirmed Type Cholecalciferol [Vitamin D3] 1,000 unit PO DAILY 06/19/14 12/20/18 History Pantoprazole [Protonix] 40 mg PO DAILY #30 tablet. 01/27/16 12/20/18 Rx Lacosamide [Vimpat] 200 mg PO BID 07/29/18 12/20/18 History Magnesium Oxide [Cramer] 500 mg PO DAILY 07/29/18 12/20/18 History Multivit-Min/Iron/Folic/Lutein 1 tab PO DAILY 07/29/18 12/20/18 History [Centrum Silver Women Tablet] Olopatadine HCl 1 - 2 drop BOTH EYES Q8H 07/29/18 12/20/18 History Topiramate [Topamax] 25 mg PO BID 07/29/18 12/20/18 History Atenolol 25 mg PO DAILY 11/22/18 12/20/18 History Escitalopram [Lexapro] 20 mg PO DAILY 11/22/18 12/20/18 History Thiamine [Vitamin B-1] 100 mg PO BID #60 tab 11/27/18 12/20/18 Rx Disulfiram [Antabuse] 250 mg PO DAILY 12/20/18 12/20/18 History Potassium 99 mg PO DAILY 12/20/18 12/20/18 History Allergies Allergy/AdvReac Type Severity Reaction Status Date / Time No Known Allergies Allergy Verified 12/20/18 11:49 Surgical - Exam Vital Signs Temp Pulse Resp BP Pulse Ox 98.4 F 96 18 137/96 97 12/20/18 11:07 12/20/18 11:07 12/20/18 11:07 12/20/18 11:07 12/20/18 11:07 Results - Labs 12/21/18 07:25 12/21/18 07:25 Abnormal Lab Results - Last 24 Hours (Table) 12/20/18 12/20/18 12/20/18 Range/Units 11:18 11:18 11:18 WBC 12.6 H (3.8-10.6) k/uL MCV 101.0 H D (80.0-100.0) fL MCH (25.0-35.0) pg Plt Count 94 L D (150-450) k/uL Neutrophils # (Manual) 9.95 H (1.3-7.7) k/uL PT 16.7 H (9.0-12.0) sec INR 1.7 H (<1.2) APTT 33.0 H (22.0-30.0) sec Potassium 3.3 L (3.5-5.1) mmol/L Chloride (98-107) mmol/L Glucose 107 H (74-99) mg/dL Total Bilirubin 7.3 H (0.2-1.3) mg/dL AST 55 H (14-36) U/L Alkaline Phosphatase 161 H (38-126) U/L Total Protein (6.3-8.2) g/dL Albumin 3.0 L (3.5-5.0) g/dL Lipase 340 H (23-300) U/L Urine Protein (Negative) Urine Bilirubin (Negative) 12/20/18 12/21/18 12/21/18 Range/Units 11:30 07:25 07:25 WBC (3.8-10.6) k/uL MCV 103.7 H (80.0-100.0) fL MCH 35.3 H (25.0-35.0) pg Plt Count 77 L (150-450) k/uL Neutrophils # (Manual) (1.3-7.7) k/uL PT (9.0-12.0) sec INR (<1.2) APTT (22.0-30.0) sec Potassium 3.4 L (3.5-5.1) mmol/L Chloride 112 H (98-107) mmol/L Glucose (74-99) mg/dL Total Bilirubin 6.3 H (0.2-1.3) mg/dL AST 51 H (14-36) U/L Alkaline Phosphatase 132 H (38-126) U/L Total Protein 5.9 L (6.3-8.2) g/dL Albumin 2.6 L (3.5-5.0) g/dL Lipase (23-300) U/L Urine Protein Trace H (Negative) Urine Bilirubin 1+ H (Negative) Diabetes panel 12/20/18 12/21/18 Range/Units 11:18 07:25 Sodium 139 143 (137-145) mmol/L Potassium 3.3 L 3.4 L (3.5-5.1) mmol/L Chloride 106 112 H (98-107) mmol/L Carbon Dioxide 24 23 (22-30) mmol/L BUN 12 10 (7-17) mg/dL Creatinine 0.59 0.56 (0.52-1.04) mg/dL Glucose 107 H 76 (74-99) mg/dL Calcium 9.0 8.4 (8.4-10.2) mg/dL AST 55 H 51 H (14-36) U/L ALT 39 35 (9-52) U/L Alkaline Phosphatase 161 H 132 H (38-126) U/L Total Protein 6.7 5.9 L (6.3-8.2) g/dL Albumin 3.0 L 2.6 L (3.5-5.0) g/dL Calcium panel 12/20/18 12/21/18 Range/Units 11:18 07:25 Calcium 9.0 8.4 (8.4-10.2) mg/dL Albumin 3.0 L 2.6 L (3.5-5.0) g/dL Pituitary panel 12/20/18 12/21/18 Range/Units 11:18 07:25 Sodium 139 143 (137-145) mmol/L Potassium 3.3 L 3.4 L (3.5-5.1) mmol/L Chloride 106 112 H (98-107) mmol/L Carbon Dioxide 24 23 (22-30) mmol/L BUN 12 10 (7-17) mg/dL Creatinine 0.59 0.56 (0.52-1.04) mg/dL Glucose 107 H 76 (74-99) mg/dL Calcium 9.0 8.4 (8.4-10.2) mg/dL Adrenal panel 12/20/18 12/21/18 Range/Units 11:18 07:25 Sodium 139 143 (137-145) mmol/L Potassium 3.3 L 3.4 L (3.5-5.1) mmol/L Chloride 106 112 H (98-107) mmol/L Carbon Dioxide 24 23 (22-30) mmol/L BUN 12 10 (7-17) mg/dL Creatinine 0.59 0.56 (0.52-1.04) mg/dL Glucose 107 H 76 (74-99) mg/dL Calcium 9.0 8.4 (8.4-10.2) mg/dL Total Bilirubin 7.3 H 6.3 H (0.2-1.3) mg/dL AST 55 H 51 H (14-36) U/L ALT 39 35 (9-52) U/L Alkaline Phosphatase 161 H 132 H (38-126) U/L Total Protein 6.7 5.9 L (6.3-8.2) g/dL Albumin 3.0 L 2.6 L (3.5-5.0) g/dL
[2018-12-21] MEDS: PANTOPRAZOLE 40 MG/10 ML VIAL IV SCH (08:30)
[2018-12-21] MEDS ORDERED: PANTOPRAZOLE 40 MG TABLET PO SCH (09:00)
[2018-12-21] MEDS: LACOSAMIDE 50 MG TABLET PO SCH ×2 (09:40→21:58)
[2018-12-21] MEDS: ESCITALOPRAM 20 MG TAB PO SCH (09:40)
[2018-12-21] MEDS: ATENOLOL 25 MG TAB PO SCH (09:40)
[2018-12-21] MEDS: TOPIRAMATE 25 MG TAB PO SCH ×2 (09:41→21:58)
[2018-12-21] MEDS: MAGNESIUM OXIDE 400 MG TAB PO SCH (09:41)
[2018-12-21] MEDS: THIAMINE 100 MG TAB PO SCH ×2 (09:41→21:58)
--- NOTE | 2018-12-21 12:32 | P.PN ---
<Varsha Ivory A - Last Filed: 12/21/18 12:24> Subjective Progress Note Date: 12/21/18 CHIEF COMPLAINT: Abdominal pain HISTORY OF PRESENT ILLNESS: Patient examined at the bedside. She continues to have abdominal pain, although she reports it is tolerable at this time. Pain is mostly near epigastric region. Denies nausea or vomiting. WBC 8.0. Bilirubin is down to 6.3 today. PHYSICAL EXAM: VITAL SIGNS: Currently stable. GENERAL: Well-developed in no acute distress. HEENT: No sclera icterus. Extraocular movements grossly intact. Moist buccal mucosa. Head is atraumatic, normocephalic. Hears conversational speech. No nasal drainage. NECK: Supple without lymphadenopathy. CHEST: Non-labored respirations and equal bilateral excursions. CARDIOVASCULAR: Regular rate with regular rhythm. Palpable 2+ radial pulses. ABDOMEN: Soft. Nondistended. Mild tenderness upon palpation. MUSCULOSKELETAL: No clubbing, cyanosis or edema. NEUROLOGIC: No focal or lateralizing signs. Cranial nerves II through XII grossly intact. PSYCH: Appropriate affect. Alert and oriented to person, place and time. SKIN: Well perfused. Good skin turgor. ASSESSMENT: 1. Hyperbilirubinemia 2. Hydropic gallbladder with cholelithiasis and bile duct dilation 3. History of alcohol abuse 4. Coagulopathy secondary to liver cirrhosis 5. History of alcoholic pancreatitis 6. Alcoholic cirrhosis of the liver 7. Thrombocytopenia PLAN: Await GI evaluation for possible ERCP No immediate surgical intervention Pain control Nurse practitioner note has been reviewed by physician. Signing provider agrees with the documented findings, assessment, and plan of care. Objective - Vital Signs Vital signs: Vital Signs Temp 97.9 F 12/21/18 07:42 Pulse 83 12/21/18 07:42 Resp 16 12/21/18 07:42 BP 148/97 12/21/18 07:42 Pulse Ox 96 12/21/18 05:25 Intake & Output 12/20/18 12/21/18 12/21/18 18:59 06:59 18:59 Intake Total 1375 Balance 1375 Weight 68.039 kg Intake: Intake, IV Titration 1375 Amount Sodium Chloride 0.9% 1, 1375 000 ml @ 125 mls/hr IV . Q8H [facility] Rx#:[id number] Other: Voiding Method Toilet Toilet # Voids 1 - Labs CBC & Chem 7: 12/21/18 07:25 12/21/18 07:25 Labs: Abnormal Lab Results - Last 24 Hours (Table) 12/20/18 12/21/18 12/21/18 Range/Units 11:18 07:25 07:25 MCV 103.7 H (80.0-100.0) fL MCH 35.3 H (25.0-35.0) pg Plt Count 94 L D 77 L (150-450) k/uL Neutrophils # (Manual) 9.95 H (1.3-7.7) k/uL Potassium 3.4 L (3.5-5.1) mmol/L Chloride 112 H (98-107) mmol/L Total Bilirubin 6.3 H (0.2-1.3) mg/dL AST 51 H (14-36) U/L Alkaline Phosphatase 132 H (38-126) U/L Total Protein 5.9 L (6.3-8.2) g/dL Albumin 2.6 L (3.5-5.0) g/dL <Aruna Holliday N - Last Filed: 12/21/18 17:36> Subjective Patient seen and evaluated. at bedside. Patient has portal hypertension with poorly compensated liver disease including hepatosplenomegaly. Cholecystectomy contraindicated at local facility. Would recommend evaluation at hepatobiliary center such as [facility]. Patient and family described that she is too high risk for acute liver failure following surgery and would need to have abdomonal surgery done at a liver center. No surgical intervention described. Objective - Vital Signs Vital signs: Vital Signs Temp 97.3 F L 12/21/18 13:05 Pulse 71 12/21/18 13:05 Resp 14 12/21/18 13:05 BP 128/82 12/21/18 13:05 Pulse Ox 96 12/21/18 05:25 Intake & Output 12/20/18 12/21/18 12/21/18 18:59 06:59 18:59 Intake Total 1375 1000 Balance 1375 1000 Weight 68.039 kg 68.039 kg Intake: Intake, IV Titration 1375 1000 Amount Sodium Chloride 0.9% 1, 1375 1000 000 ml @ 125 mls/hr IV . Q8H [facility] Rx#:[id number] Other: Voiding Method Toilet Toilet # Voids 1 3 - Labs CBC & Chem 7: 12/21/18 07:25 12/21/18 07:25 Labs: Abnormal Lab Results - Last 24 Hours (Table) 12/21/18 12/21/18 Range/Units 07:25 07:25 MCV 103.7 H (80.0-100.0) fL MCH 35.3 H (25.0-35.0) pg Plt Count 77 L (150-450) k/uL Potassium 3.4 L (3.5-5.1) mmol/L Chloride 112 H (98-107) mmol/L Total Bilirubin 6.3 H (0.2-1.3) mg/dL AST 51 H (14-36) U/L Alkaline Phosphatase 132 H (38-126) U/L Total Protein 5.9 L (6.3-8.2) g/dL Albumin 2.6 L (3.5-5.0) g/dL
[2018-12-21 13:13] VITALS: BMI 25.7
[2018-12-21] MEDS: MULTIVITAMINS, THERA 1 EACH TAB PO SCH (13:31)
--- NOTE | 2018-12-21 16:46 | P.PN ---
Subjective Progress Note Date: 12/21/18 Principal diagnosis: Pancreatitis, elevated liver enzymes Patient was seen and examined. No acute events overnight. Patient reports improvement in her abdominal pain, currently 3-02/14. She reports mild nausea but no vomiting. She denies chest pain, shortness of breath or palpitations. Objective - Vital Signs Vital signs: Vital Signs Temp 97.3 F L 12/21/18 13:05 Pulse 71 12/21/18 13:05 Resp 14 12/21/18 13:05 BP 128/82 12/21/18 13:05 Pulse Ox 96 12/21/18 05:25 Intake & Output 12/20/18 12/21/18 12/21/18 18:59 06:59 18:59 Intake Total 1375 Balance 1375 Weight 68.039 kg 68.039 kg Intake: Intake, IV Titration 1375 Amount Sodium Chloride 0.9% 1, 1375 000 ml @ 125 mls/hr IV . Q8H [facility] Rx#:[id number] Other: Voiding Method Toilet Toilet # Voids 1 - Exam General: [non toxic], [no distress], [appears at stated age] Derm: [warm], [dry] Head: [atraumatic], [normocephalic], [symmetric] Eyes: [EOMI], [no lid lag], [anicteric sclera] Mouth: [no lip lesion], [mucus membranes moist] Cardiovascular: [S1S2 reg], [no murmur], [positive DP pulse bilateral] Lungs: [CTA bilateral], [no rhonchi, no rales] , [no accessory muscle use] Abdominal: [soft], [generalized tenderness to palpation in all 4 quadrants without rebound, improved from yesterday], [no guarding], [no appreciable organomegaly] Ext: [no gross muscle atrophy], [no edema], [no contractures] Neuro: [no focal neuro deficits] Psych: [Alert], [oriented], [appropriate affect] - Labs CBC & Chem 7: 12/21/18 07:25 12/21/18 07:25 Labs: Abnormal Lab Results - Last 24 Hours (Table) 12/21/18 12/21/18 Range/Units 07:25 07:25 MCV 103.7 H (80.0-100.0) fL MCH 35.3 H (25.0-35.0) pg Plt Count 77 L (150-450) k/uL Potassium 3.4 L (3.5-5.1) mmol/L Chloride 112 H (98-107) mmol/L Total Bilirubin 6.3 H (0.2-1.3) mg/dL AST 51 H (14-36) U/L Alkaline Phosphatase 132 H (38-126) U/L Total Protein 5.9 L (6.3-8.2) g/dL Albumin 2.6 L (3.5-5.0) g/dL Assessment and Plan Assessment: Assessment and Plan 1. Abdominal pain likely secondary to pancreatitis 2. Hyperbilirubinemia 3. Low potassium 4. Leukocytosis 5. Macrocytosis 6. Thrombocytopenia 7. Abnormal INR 1. CT abdomen and pelvis shows cirrhosis, portal hypertension, cholelithiasis and hepatosplenomegaly. Gallbladder ultrasound shows a distended gallbladder with large amount of internal sludge and wall thickening. Lipase is 340. Pain management with Tylenol, morphine 4 mg IV every 4 hours as needed. Zofran as needed for nausea and vomiting. Protonix 40 g IV daily. Nothing by mouth and advance diet as tolerated. General surgery recommends ERCP and GI consult. GI consulted, recommends MRCP, to be done later today. 2. Total bilirubin is 7.3 to 6.3, AST of 55 to 51 and alkaline phosphatase of 161 to 132. Likely secondary to cirrhosis. Will follow MRCP results. Follow Gastroenterology and General surgery recommendations. 3. Potassium is 3.4. Replaced. 4. Leukocytosis of 12.6 to 8.0. Resolved. This is likely reactive secondary to pancreatitis. Daily CBC. 5. MCV is 103.7. Likely secondary to alcohol abuse. Daily CBC. 6. Platelet count of 77. Likely secondary to alcohol abuse. Daily CBC. 7. INR 1.7. Likely secondary to alcohol abuse. Daily coags panels. Patient admitted for pancreatitis, gastroenterology on consult. Will follow MRCP results. Follow GI and General Surgery recommendations.
[2018-12-21] MEDS: MORPHINE SULFATE 4 MG/ML SYRINGE IV PRN ×2 (17:19→20:49)
--- NOTE | 2018-12-21 17:35 | P.PN ---
Progress Note - Text Progress Note Date: 12/21/18 Patient seen and evaluated. at bedside. Patient has portal hypertension with poorly compensated liver disease including hepatosplenomegaly. Cholecystectomy contraindicated at local facility. Would recommend evaluation at hepatobiliary center such as [facility]. Patient and family described that she is too high risk for acute liver failure following surgery and would need to have abdomonal surgery done at a liver center. No surgical intervention described.
--- NOTE | 2018-12-21 22:11 | MR ---
MR scan of the abdomen with MRCP. History abdominal pain and bloating. Comparison none. TECHNIQUE: Multiplanar and multiecho imaging of the abdomen was performed without and with IV contrast. The cont rast was gadolinium 7 mL. FINDINGS: There are a few small cysts in the liver. Spleen has normal size and contour. The intrahepatic bile d ucts are not dilated. There is no evidence of a pancreatic mass. Pancreatic duct appears normal. Gall bladder is dilated and measures 5 cm in diameter. There is no adrenal mass. Kidneys have normal size and contour. There is no hydronephrosis. There is no evidence of retroperitoneal adenopathy. There is no evidence of ascites. The common bile duct is m ildly enlarged and measures 10 mm.. I see no filling defect in the biliary tree. Contrast images show no pathologic enhancement. There are some varicose veins in the anterior abdomen extending to the anterior lower chest as well as the lower abdomen. IMPRESSION: Dilated gallbladder. No dilated intrahepatic bile ducts but the common bile duct is enlarged and this is consistent with chronic gallbladder dysfunction. Cholecystitis is possible in view of the gallbla dder dilation. Varicose veins anteriorly could relate to portal venous hypertension.
[2018-12-22] MEDS: SODIUM CHLORIDE 0.9% 1,000 ML IV SCH ×4 (01:00→22:43)
--- NOTE | 2018-12-22 05:40 | P.CONS ---
History of Present Illness - Reason for Consult Consult date: 12/21/18 Elevated liver enzymes Requesting physician: Janice Bergeron - Chief Complaint Abdominal pain - History of Present Illness 53-year-old female with medical history significant for hypertension, alcoholic liver cirrhosis and seizure disorder who presented to the hospital with complaints of abdominal pain. She reports 2 days of severe abdominal pain. She reports that pain occurs in the epigastric region of her abdomen and is severe in nature, waxing and waning in intensity without radiation. When the pain occurs it could last hours at a time. She reports associated nausea with the episodes. No change in bowel habits reported. On presentation to the hospital the patient had liver enzymes significant for a total bilirubin 7.3, alkaline phosphatase 161, AST 55 and ALT 39. She had an ultrasound of the abdomen which showed a common bile duct within normal limits, distended gallbladder and a cirrhotic liver. Subsequently the patient's liver enzymes were found to be total bilirubin 6.3, alkaline phosphatase 132, AST 50 want and ALT 35. INR was found to be 1.7. The patient has a 20 year history of alcohol abuse, however states that she has stopped drinking regularly over the last month. Review of Systems REVIEW OF SYSTEMS: CONSTITUTIONAL: Denies any fevers, chills, weight change or fatigue. CARDIOVASCULAR: Denies any chest pain, palpitations high or low blood pressures RESPIRATORY: Denies any shortness of breath, hemoptysis or cough. GENITOURINARY: No dysuria or hematuria. MUSCULOSKELETAL: No weakness reported. SKIN: Denies any new rashes or lesions, jaundice or pallor. PSYCHIATRIC: Denies any depression or anxiety. NEUROLOGY: Denies headache, denies any new focal deficits. EARS/NOSE/THROAT: No recent hearing change, congestion, nasal discharge or sore throat. EYES: No pain in eyes, discharge or change in vision. GASTROINTESTINAL: As per HPI. Past Medical History Past Medical History: Asthma, CVA/TIA, Hypertension, Pneumonia, Seizure Disorder Additional Past Medical History / Comment(s): Pt recently admitted to [facility] on acute wernicke encephalopathy 2ndary to thiamine deficiency from cirrhosis , ETOH abuse, alcohol intoxication, acute pancreatitis, portal htn, hyperbilirubinemia, thrombocytopenia. Other hx: Jaundice, abdominal distention, seizure once, UTIs, kidney stones, sinus problems. History of Any Multi-Drug Resistant Organisms: None Reported Past Surgical History: Section, Tonsillectomy Additional Past Surgical History / Comment(s): 11/26/18 EGD, egd when a 7yr old child Past Anesthesia/Blood Transfusion Reactions: No Reported Reaction Additional Past Anesthesia/Blood Transfusion Reaction / Comm: CLAUSTERPHOBIA Smoking Status: Former smoker - Past Family History Father Additional Family Medical History / Comment(s): [employer]. Father is 83 yrs old. Mother Family Medical History: Coronary Artery Disease (CAD), Diabetes Mellitus, Hypertension, Pneumonia, Thyroid Disorder Additional Family Medical History / Comment(s): Mother has 3 coronary stents, gout. She is 80yrs old. Medications and Allergies Home Medications Medication Instructions Recorded Confirmed Type Cholecalciferol [Vitamin D3] 1,000 unit PO DAILY 06/19/14 12/20/18 History Pantoprazole [Protonix] 40 mg PO DAILY #30 tablet. 01/27/16 12/20/18 Rx Lacosamide [Vimpat] 200 mg PO BID 07/29/18 12/20/18 History Magnesium Oxide [Cramer] 500 mg PO DAILY 07/29/18 12/20/18 History Multivit-Min/Iron/Folic/Lutein 1 tab PO DAILY 07/29/18 12/20/18 History [Centrum Silver Women Tablet] Olopatadine HCl 1 - 2 drop BOTH EYES Q8H 07/29/18 12/20/18 History Topiramate [Topamax] 25 mg PO BID 07/29/18 12/20/18 History Atenolol 25 mg PO DAILY 11/22/18 12/20/18 History Escitalopram [Lexapro] 20 mg PO DAILY 11/22/18 12/20/18 History Thiamine [Vitamin B-1] 100 mg PO BID #60 tab 11/27/18 12/20/18 Rx Disulfiram [Antabuse] 250 mg PO DAILY 12/20/18 12/20/18 History Potassium 99 mg PO DAILY 12/20/18 12/20/18 History Allergies Allergy/AdvReac Type Severity Reaction Status Date / Time No Known Allergies Allergy Verified 12/20/18 11:49 Physical Exam Vitals: Vital Signs Temp Pulse Resp BP Pulse Ox 12/21/18 19:46 98.2 F 70 15 111/72 96 12/21/18 13:05 97.3 F L 71 14 128/82 12/21/18 07:42 97.9 F 83 16 148/97 12/21/18 05:25 98.1 F 93 16 129/82 96 Intake and Output 12/21/18 12/21/18 12/21/18 06:59 14:59 22:59 Intake Total 1000 1000 Balance 1000 1000 Intake: Intake, IV Titration 1000 1000 Amount Sodium Chloride 0.9% 1, 1000 1000 000 ml @ 125 mls/hr IV . Q8H [facility] Rx#:[id number] Other: Voiding Method Toilet # Voids 3 Weight 68.039 kg On physical examination, patient appears comfortable in no apparent distress. HEAD: Normocephalic, atraumatic. EYES: No scleral icterus. No conjunctival injection. MOUTH: No lesions, tongue midline. NECK: Trachea midline, no gross abnormalities. CHEST: Clear to auscultation with no wheezing or rhonchi appreciated. HEART: Regular rate and rhythm. ABDOMEN: Soft, obese. Bowel sounds are positive. No organomegaly. No guarding or rigidity. EXTREMITIES: No pedal edema. SKIN: No rashes, no jaundice. NEUROLOGIC: Alert and oriented x3. No focal deficits. Results CBC & Chem 7: 12/21/18 07:25 12/21/18 07:25 Labs: Abnormal Lab Results - Last 24 Hours (Table) 12/21/18 12/21/18 Range/Units 07:25 07:25 MCV 103.7 H (80.0-100.0) fL MCH 35.3 H (25.0-35.0) pg Plt Count 77 L (150-450) k/uL Potassium 3.4 L (3.5-5.1) mmol/L Chloride 112 H (98-107) mmol/L Total Bilirubin 6.3 H (0.2-1.3) mg/dL AST 51 H (14-36) U/L Alkaline Phosphatase 132 H (38-126) U/L Total Protein 5.9 L (6.3-8.2) g/dL Albumin 2.6 L (3.5-5.0) g/dL US - abdomen: report reviewed (ultrasound of the abdomen which showed a common bile duct within normal limits, distended gallbladder and a cirrhotic liver. ) Assessment and Plan (1) Enlarged gallbladder Narrative/Plan: Patient presenting with episodes of abdominal pain and findings of an enlarged gallbladder suggestive of symptomatic cholelithiasis/chronic cholecystitis. The patient did have ultrasound which showed bile ducts within normal limits, on MRI CBD was found to be enlarged without any filling defects found. Given history of alcohol abuse and alcoholic cirrhosis that is likely that elevation in liver enzymes are due to underlying liver disease and not choledocholithiasis. On review of medical record total bilirubin was found to be 6.1 on recent discharge from hospital. Current Visit: Yes Status: Acute Code(s): K82.8 - OTHER SPECIFIED DISEASES OF GALLBLADDER SNOMED Code(s): 530279439 (2) Alcoholic cirrhosis of liver Current Visit: No Status: Acute Code(s): K70.30 - ALCOHOLIC CIRRHOSIS OF LIVER WITHOUT ASCITES SNOMED Code(s): 623593460 (3) Elevated liver enzymes Narrative/Plan: Elevated liver enzymes predominantly in a cholestatic pattern, likely related to alcoholic cirrhosis with MRI of the abdomen showing findings of a distended gallbladder without any shadowing to suggest choledocholithiasis. Current Visit: No Status: Acute Code(s): R74.8 - ABNORMAL LEVELS OF OTHER SERUM ENZYMES SNOMED Code(s): 385045342 Plan: Supportive care Okay for low fat diet Continue pain management Continue to monitor liver enzymes Continue alcohol abstinence Appreciate surgical recommendations, further management further service We will continue to monitor Thank you for allowing us to participate in the care of this patient we will continue to follow
[2018-12-22] MEDS: MORPHINE SULFATE 4 MG/ML SYRINGE IV PRN (08:34)
[2018-12-22 09:11] LABS: HCT 40.9 % (34.0-46.0); HGB 13.6 gm/dL (11.4-16.0); MCH 35.1 pg (25.0-35.0); MCHC 33.3 g/dL (31.0-37.0); MCV 105.3 fL (80.0-100.0); Macrocytosis Moderate; Mean Platelet Volume 8.2; RBC 3.88 m/uL (3.80-5.40); WBC 6.6 k/uL (3.8-10.6)
[2018-12-22 09:13] LABS: Platelet Count 76 k/uL (150-450)
[2018-12-22 09:28] LABS: ALT 38 U/L (9-52); AST 58 U/L (14-36); Albumin 2.5 g/dL (3.5-5.0); Alkaline Phosphatase 114 U/L (38-126); Anion Gap 6 mmol/L; Blood Urea Nitrogen 12 mg/dL (7-17); Calcium 8.7 mg/dL (8.4-10.2); Carbon Dioxide 21 mmol/L (22-30); Chloride 118 mmol/L (98-107); Glucose 58 mg/dL (74-99); Potassium 4.1 mmol/L (3.5-5.1); Sodium 145 mmol/L (137-145); Total Bilirubin 4.3 mg/dL (0.2-1.3); Total Protein 5.6 g/dL (6.3-8.2)
[2018-12-22] MEDS: ESCITALOPRAM 20 MG TAB PO SCH (09:38)
[2018-12-22] MEDS: ATENOLOL 25 MG TAB PO SCH (09:38)
[2018-12-22] MEDS: MAGNESIUM OXIDE 400 MG TAB PO SCH (09:38)
[2018-12-22] MEDS: LACOSAMIDE 50 MG TABLET PO SCH ×2 (09:38→21:21)
[2018-12-22] MEDS: THIAMINE 100 MG TAB PO SCH ×2 (09:39→21:22)
[2018-12-22] MEDS: TOPIRAMATE 25 MG TAB PO SCH ×2 (09:39→21:22)
[2018-12-22] MEDS: PANTOPRAZOLE 40 MG/10 ML VIAL IV SCH (09:54)
--- NOTE | 2018-12-22 10:44 | P.PN ---
Subjective Progress Note Date: 12/22/18 Principal diagnosis: Pancreatitis, elevated liver enzymes Patient was seen and examined. No acute events overnight. Patient remains nothing by mouth. She complains of nausea but no vomiting. Her abdominal pain is well-controlled on current medications. Patient denies any chest pain, shortness of breath or palpitations. No withdrawal symptoms at this time. Objective - Vital Signs Vital signs: Vital Signs Temp 97.6 F 12/22/18 07:30 Pulse 76 12/22/18 07:30 Resp 14 12/22/18 07:30 BP 123/78 12/22/18 07:30 Pulse Ox 96 12/22/18 04:55 Intake & Output 12/21/18 12/22/18 12/22/18 18:59 06:59 18:59 Intake Total 1000 250 Balance 1000 250 Weight 68.039 kg Intake: Intake, IV Titration 1000 250 Amount Sodium Chloride 0.9% 1, 1000 250 000 ml @ 125 mls/hr IV . Q8H [facility] Rx#:[id number] Other: Voiding Method Toilet # Voids 3 1 - Exam General: [non toxic], [no distress], [appears at stated age] Derm: [warm], [dry] Head: [atraumatic], [normocephalic], [symmetric] Eyes: [EOMI], [no lid lag], [anicteric sclera] Mouth: [no lip lesion], [mucus membranes moist] Cardiovascular: [S1S2 reg], [no murmur], [positive DP pulse bilateral] Lungs: [CTA bilateral], [no rhonchi, no rales] , [no accessory muscle use] Abdominal: [soft], [mild tenderness to palpation in the left lower quadrant without rebound, improved from yesterday], [no guarding], [no appreciable organomegaly] Ext: [no gross muscle atrophy], [no edema], [no contractures] Neuro: [no focal neuro deficits] Psych: [Alert], [oriented], [appropriate affect] - Labs CBC & Chem 7: 12/22/18 08:30 12/22/18 08:30 Labs: Abnormal Lab Results - Last 24 Hours (Table) 12/22/18 12/22/18 Range/Units 08:30 08:30 MCV 105.3 H (80.0-100.0) fL MCH 35.1 H (25.0-35.0) pg Plt Count 76 L (150-450) k/uL Chloride 118 H (98-107) mmol/L Carbon Dioxide 21 L (22-30) mmol/L Glucose 58 L (74-99) mg/dL Total Bilirubin 4.3 H (0.2-1.3) mg/dL AST 58 H (14-36) U/L Total Protein 5.6 L (6.3-8.2) g/dL Albumin 2.5 L (3.5-5.0) g/dL Assessment and Plan Assessment: Assessment and Plan 1. Abdominal pain likely secondary to pancreatitis 2. Hyperbilirubinemia 3. Low potassium 4. Leukocytosis 5. Macrocytosis 6. Thrombocytopenia 7. Abnormal INR 1. CT abdomen and pelvis shows cirrhosis, portal hypertension, cholelithiasis and hepatosplenomegaly. Gallbladder ultrasound shows a distended gallbladder with large amount of internal sludge and wall thickening. Lipase is 340. Pain management with Tylenol, morphine 4 mg IV every 4 hours as needed. Zofran as needed for nausea and vomiting. Protonix 40 g IV daily. Clear liquid diet and advance diet as tolerated. General surgery recommends ERCP and GI consult. GI consulted, recommends MRCP. MRCP shows dilated gallbladder, no dilated intra- hepatic bile duct, enlarged common bile duct consistent with chronic gallbladder dysfunction, cholecystitis is possible. Will follow GI and surgery recommendations. 2. Total bilirubin is 7.3 to 6.3 to 4.3, AST of 55 to 51 to 58 and alkaline phosphatase of 161 to 132 to 114. Likely secondary to cirrhosis. MRCP shows no clear obstruction. Probable gastroenterology and surgery recommendations. 3. Resolved 4. Leukocytosis of 12.6 to 8.0. Resolved. This is likely reactive secondary to pancreatitis. Daily CBC. 5. MCV is 105.3. Likely secondary to alcohol abuse. Daily CBC. 6. Platelet count of 76. Likely secondary to alcohol abuse. Daily CBC. 7. INR 1.7. Likely secondary to alcohol abuse. Daily coags panels. Patient admitted for pancreatitis. MRCP shows no obstruction. Follow GI and General Surgery recommendations. Clear liquid diet and advance. Likely discharge if able to tolerate this afternoon or tomorrow.
[2018-12-22] MEDS: MULTIVITAMINS, THERA 1 EACH TAB PO SCH (11:52)
[2018-12-22 15:57] LABS: INR 1.6 (<1.2); Prothrombin Time 15.6 sec (9.0-12.0)
--- NOTE | 2018-12-22 21:09 | P.PN ---
Subjective Progress Note Date: 12/22/18 Principal diagnosis: Abdominal pain, elevated liver enzymes The patient has been started on clear liquid diet and is tolerating. No further abdominal pain. No nausea vomiting reported. Objective - Vital Signs Vital signs: Vital Signs Temp 97.6 F 12/22/18 19:38 Pulse 72 12/22/18 19:38 Resp 15 12/22/18 19:38 BP 101/53 12/22/18 19:38 Pulse Ox 97 12/22/18 19:38 Intake & Output 12/22/18 12/22/18 12/23/18 06:59 18:59 06:59 Intake Total 250 1000 Balance 250 1000 Intake: Intake, IV Titration 250 1000 Amount Sodium Chloride 0.9% 1, 250 1000 000 ml @ 125 mls/hr IV . Q8H [facility] Rx#:[id number] Other: Voiding Method Toilet # Voids 1 1 - Exam On physical examination, patient appears comfortable in no apparent distress. HEAD: Normocephalic, atraumatic. EYES: No scleral icterus. No conjunctival injection. MOUTH: No lesions, tongue midline. NECK: Trachea midline, no gross abnormalities. CHEST: Clear to auscultation with no wheezing or rhonchi appreciated. HEART: Regular rate and rhythm. ABDOMEN: Soft, obese. Bowel sounds are positive. No organomegaly. No guarding or rigidity. EXTREMITIES: No pedal edema. SKIN: No rashes, no jaundice. NEUROLOGIC: Alert and oriented. No asterixis noted. No focal deficits. - Labs CBC & Chem 7: 12/22/18 08:30 12/22/18 08:30 Labs: Abnormal Lab Results - Last 24 Hours (Table) 12/22/18 12/22/18 12/22/18 Range/Units 08:30 08:30 15:31 MCV 105.3 H (80.0-100.0) fL MCH 35.1 H (25.0-35.0) pg Plt Count 76 L (150-450) k/uL PT 15.6 H (9.0-12.0) sec INR 1.6 H (<1.2) Chloride 118 H (98-107) mmol/L Carbon Dioxide 21 L (22-30) mmol/L Glucose 58 L (74-99) mg/dL Total Bilirubin 4.3 H (0.2-1.3) mg/dL AST 58 H (14-36) U/L Total Protein 5.6 L (6.3-8.2) g/dL Albumin 2.5 L (3.5-5.0) g/dL Assessment and Plan (1) Enlarged gallbladder Narrative/Plan: Patient presenting with episodes of abdominal pain and findings of an enlarged gallbladder suggestive of symptomatic cholelithiasis/chronic cholecystitis. The patient did have ultrasound which showed bile ducts within normal limits, on MRI CBD was found to be enlarged without any filling defects found. Given history of alcohol abuse and alcoholic cirrhosis that is likely that elevation in liver enzymes are due to underlying liver disease and not choledocholithiasis. On review of medical record total bilirubin was found to be 6.1 on recent discharge from hospital. Current Visit: Yes Status: Acute Code(s): K82.8 - OTHER SPECIFIED DISEASES OF GALLBLADDER SNOMED Code(s): 421154661 (2) Alcoholic cirrhosis of liver Current Visit: No Status: Acute Code(s): K70.30 - ALCOHOLIC CIRRHOSIS OF LIVER WITHOUT ASCITES SNOMED Code(s): 857587338 (3) Elevated liver enzymes Narrative/Plan: Elevated liver enzymes predominantly in a cholestatic pattern, likely related to alcoholic cirrhosis with MRI of the abdomen showing findings of a distended gallbladder without any shadowing to suggest choledocholithiasis. Current Visit: No Status: Acute Code(s): R74.8 - ABNORMAL LEVELS OF OTHER SERUM ENZYMES SNOMED Code(s): 659259652 Plan: Supportive care Okay for low fat diet Continue pain management Continue to monitor liver enzymes Continue alcohol abstinence Appreciate surgical recommendations, further management further service We will continue to monitor Thank you for allowing us to participate in the care of this patient we will continue to follow
[2018-12-22] MEDS: LACTULOSE 20 GM/30 ML CUP PO SCH (22:43)
[2018-12-22] MEDS: ACETAMINOPHEN TAB 325 MG TAB PO PRN (22:46)
[2018-12-23] MEDS: SODIUM CHLORIDE 0.9% 1,000 ML IV SCH ×3 (04:03→17:00)
--- NOTE | 2018-12-23 09:31 | P.PN ---
Subjective Progress Note Date: 12/23/18 Principal diagnosis: pancreatitis, elevated liver enzymes, encephalopathy. patient seen and examined. No acute events overnight. Reports of altered mentation last visit, elevated ammonia level detected, started on lactulose. Sitter is at bedside. Reports from sitter, patient has been sleeping comfortably, ambulating views washroom. Patient reports well-controlled abdominal pain. Mild nausea but no vomiting. Objective - Vital Signs Vital signs: Vital Signs Temp 98.2 F 12/23/18 04:37 Pulse 77 12/23/18 04:37 Resp 16 12/23/18 04:37 BP 118/78 12/23/18 04:37 Pulse Ox 96 12/23/18 04:37 Intake & Output 12/22/18 12/23/18 12/23/18 18:59 06:59 18:59 Intake Total 1000 1575 Balance 1000 1575 Intake: Intake, IV Titration 1000 1125 Amount Sodium Chloride 0.9% 1, 1000 1125 000 ml @ 125 mls/hr IV . Q8H [facility] Rx#:[id number] Oral 450 Other: Voiding Method Toilet Diaper Incontinent # Voids 2 - Exam General: [non toxic], [no distress], [appears at stated age] Derm: [warm], [dry] Head: [atraumatic], [normocephalic], [symmetric] Eyes: [EOMI], [no lid lag], [anicteric sclera] Mouth: [no lip lesion], [mucus membranes moist] Cardiovascular: [S1S2 reg], [no murmur], [positive DP pulse bilateral] Lungs: [CTA bilateral], [no rhonchi, no rales] , [no accessory muscle use] Abdominal: [soft], [mild tenderness to palpation in the epigastric area, improved], [no guarding], [no appreciable organomegaly] Ext: [no gross muscle atrophy], [no edema], [no contractures] Neuro: [no focal neuro deficits] Psych: [Alert], [oriented], [appropriate affect] - Labs CBC & Chem 7: 12/22/18 08:30 12/22/18 08:30 Labs: Abnormal Lab Results - Last 24 Hours (Table) 12/22/18 12/22/18 12/22/18 Range/Units 08:30 15:31 21:29 PT 15.6 H (9.0-12.0) sec INR 1.6 H (<1.2) Chloride 118 H (98-107) mmol/L Carbon Dioxide 21 L (22-30) mmol/L Glucose 58 L (74-99) mg/dL Total Bilirubin 4.3 H (0.2-1.3) mg/dL AST 58 H (14-36) U/L Ammonia 47 H (<30) umol/L Total Protein 5.6 L (6.3-8.2) g/dL Albumin 2.5 L (3.5-5.0) g/dL Assessment and Plan Assessment: Assessment and Plan 1. Metabolic encephalopathy 2. Abdominal pain likely secondary to pancreatitis 3. Hyperbilirubinemia 4. Macrocytosis 5. Thrombocytopenia 6. Abnormal INR 1. Likely secondary to her hyper ammonemia. Ammonia level 47. We'll start lactulose 30 g by mouth 4 times a day. Discontinue morphine, stick with Calera. One-to-one sitter. Fall precautions. 2. CT abdomen and pelvis shows cirrhosis, portal hypertension, cholelithiasis and hepatosplenomegaly. Gallbladder ultrasound shows a distended gallbladder with large amount of internal sludge and wall thickening. Lipase is 340. Pain management with Tylenol, Calera. Zofran as needed for nausea and vomiting. Protonix 40 g IV daily. low-fat diet and advance diet as tolerated. General surgery consulted and signed off. GI consulted, recommends conservative management as no obstruction seen on MRCP. MRCP shows dilated gallbladder, no dilated intra-hepatic bile duct, enlarged common bile duct consistent with chronic gallbladder dysfunction, cholecystitis is possible. We'll follow lipase and amylase. 3. Total bilirubin is 7.3 to 6.3 to 4.3, AST of 55 to 51 to 58 and alkaline phosphatase of 161 to 132 to 114. Likely secondary to cirrhosis. MRCP shows no clear obstruction. 4. MCV is 105.3. Likely secondary to alcohol abuse. Daily CBC. 5. Platelet count of 76. Likely secondary to alcohol abuse. Daily CBC. 6. INR 1.7 to 1.6. Likely secondary to alcohol abuse. Daily coags panels. Patient admitted for pancreatitis. MRCP shows no obstruction. Low-fat diet and advance. Given lactulose for hyperammonemia. She is pending clinical improvement. Likely discharge in 1-2 days.
[2018-12-23] MEDS: LACTULOSE 20 GM/30 ML CUP PO SCH ×4 (10:00→21:35)
[2018-12-23] MEDS: ESCITALOPRAM 20 MG TAB PO SCH (10:00)
[2018-12-23] MEDS: ATENOLOL 25 MG TAB PO SCH (10:00)
[2018-12-23] MEDS: PANTOPRAZOLE 40 MG/10 ML VIAL IV SCH (10:01)
[2018-12-23] MEDS: MAGNESIUM OXIDE 400 MG TAB PO SCH (10:01)
[2018-12-23] MEDS: THIAMINE 100 MG TAB PO SCH ×2 (10:02→21:35)
[2018-12-23] MEDS: TOPIRAMATE 25 MG TAB PO SCH ×2 (10:03→21:35)
[2018-12-23] MEDS: LACOSAMIDE 50 MG TABLET PO SCH ×2 (10:20→21:35)
[2018-12-23] MEDS: MULTIVITAMINS, THERA 1 EACH TAB PO SCH (13:45)
[2018-12-23 16:07] LABS: Amylase 83 U/L (30-110); Lipase 522 U/L (23-300)
[2018-12-23] MEDS ORDERED: ONDANSETRON 4 MG/2 ML VIAL IVP PRN (16:54)
[2018-12-23] MEDS: ACETAMINOPHEN TAB 325 MG TAB PO PRN (17:01)
[2018-12-24 02:12] LABS: Glucose,Whole Blood 114 mg/dL (75-99)
[2018-12-24] MEDS: SODIUM CHLORIDE 0.9% 1,000 ML IV SCH ×3 (04:10→21:43)
[2018-12-24 07:02] LABS: HCT 37.9 % (34.0-46.0); HGB 12.9 gm/dL (11.4-16.0); MCH 35.2 pg (25.0-35.0); MCHC 33.9 g/dL (31.0-37.0); Macrocytosis Slight; Mean Platelet Volume 7.7; RBC 3.65 m/uL (3.80-5.40); RDW 14.1 % (11.5-15.5); WBC 6.8 k/uL (3.8-10.6)
[2018-12-24 07:03] LABS: INR 1.8 (<1.2); Platelet Count 66 k/uL (150-450); Prothrombin Time 17.5 sec (9.0-12.0)
[2018-12-24 07:10] LABS: ALT 48 U/L (9-52); AST 86 U/L (14-36); Albumin 2.5 g/dL (3.5-5.0); Alkaline Phosphatase 134 U/L (38-126); Anion Gap 7 mmol/L; Blood Urea Nitrogen <2 mg/dL (7-17); Calcium 7.9 mg/dL (8.4-10.2); Carbon Dioxide 27 mmol/L (22-30); Chloride 110 mmol/L (98-107); Glucose 99 mg/dL (74-99); Potassium 3.2 mmol/L (3.5-5.1); Sodium 144 mmol/L (137-145); Total Bilirubin 4.5 mg/dL (0.2-1.3); Total Protein 5.7 g/dL (6.3-8.2)
[2018-12-24] MEDS: PANTOPRAZOLE 40 MG TABLET PO SCH (08:52)
[2018-12-24] MEDS: ATENOLOL 25 MG TAB PO SCH (08:52)
[2018-12-24] MEDS: ESCITALOPRAM 20 MG TAB PO SCH (08:52)
[2018-12-24] MEDS: LACTULOSE 20 GM/30 ML CUP PO SCH (08:53)
[2018-12-24] MEDS: TOPIRAMATE 25 MG TAB PO SCH ×2 (08:53→21:43)
[2018-12-24] MEDS: MULTIVITAMINS, THERA 1 EACH TAB PO SCH (08:53)
[2018-12-24] MEDS: LACOSAMIDE 50 MG TABLET PO SCH ×2 (08:53→21:43)
[2018-12-24] MEDS: THIAMINE 100 MG TAB PO SCH ×2 (08:53→21:43)
[2018-12-24] MEDS: MAGNESIUM OXIDE 400 MG TAB PO SCH (08:53)
[2018-12-24] MEDS ORDERED: POTASSIUM CHLORIDE ER 20 MEQ TAB.ER PO STA (09:29)
--- NOTE | 2018-12-24 09:30 | P.PN ---
Subjective Progress Note Date: 12/24/18 Principal diagnosis: Pancreatitis Patient seen and examined. No acute events overnight. Patient reports moderate improvement in her abdominal pain, well-controlled with medications. Patient reports slight nausea but no vomiting. Tolerating low-fat diet in small amounts. Had 8 episodes of diarrhea after given lactulose yesterday. Objective - Vital Signs Vital signs: Vital Signs Temp 98.4 F 12/24/18 04:46 Pulse 87 12/24/18 04:46 Resp 16 12/24/18 04:46 BP 130/78 12/24/18 04:46 Pulse Ox 97 12/24/18 04:46 Intake & Output 12/23/18 12/24/18 12/24/18 18:59 06:59 18:59 Intake Total 1375 Balance 1375 Intake: Intake, IV Titration 1125 Amount Sodium Chloride 0.9% 1, 1125 000 ml @ 125 mls/hr IV . Q8H [facility] Rx#:[id number] Oral 250 Other: Voiding Method Toilet Toilet Toilet # Voids 2 3 # Bowel Movements 1 4 - Exam General: [non toxic], [no distress], [appears at stated age] Derm: [warm], [dry] Head: [atraumatic], [normocephalic], [symmetric] Eyes: [EOMI], [no lid lag], [anicteric sclera] Mouth: [no lip lesion], [mucus membranes moist] Cardiovascular: [S1S2 reg], [no murmur], [positive DP pulse bilateral] Lungs: [CTA bilateral], [no rhonchi, no rales] , [no accessory muscle use] Abdominal: [soft], [mild tenderness to palpation in the epigastric area, improved], [no guarding], [no appreciable organomegaly] Ext: [no gross muscle atrophy], [no edema], [no contractures] Neuro: [no focal neuro deficits] Psych: [Alert], [oriented], [appropriate affect] - Labs CBC & Chem 7: 12/24/18 06:34 12/24/18 06:34 Labs: Abnormal Lab Results - Last 24 Hours (Table) 12/23/18 12/24/18 12/24/18 Range/Units 15:37 02:10 06:34 RBC 3.65 L (3.80-5.40) m/uL MCV 104.0 H (80.0-100.0) fL MCH 35.2 H (25.0-35.0) pg Plt Count 66 L (150-450) k/uL PT (9.0-12.0) sec INR (<1.2) Potassium (3.5-5.1) mmol/L Chloride (98-107) mmol/L BUN (7-17) mg/dL POC Glucose (mg/dL) 114 H (75-99) mg/dL Calcium (8.4-10.2) mg/dL Total Bilirubin (0.2-1.3) mg/dL AST (14-36) U/L Alkaline Phosphatase (38-126) U/L Total Protein (6.3-8.2) g/dL Albumin (3.5-5.0) g/dL Lipase 522 H (23-300) U/L 12/24/18 12/24/18 Range/Units 06:34 06:34 RBC (3.80-5.40) m/uL MCV (80.0-100.0) fL MCH (25.0-35.0) pg Plt Count (150-450) k/uL PT 17.5 H (9.0-12.0) sec INR 1.8 H (<1.2) Potassium 3.2 L (3.5-5.1) mmol/L Chloride 110 H (98-107) mmol/L BUN <2 L (7-17) mg/dL POC Glucose (mg/dL) (75-99) mg/dL Calcium 7.9 L (8.4-10.2) mg/dL Total Bilirubin 4.5 H (0.2-1.3) mg/dL AST 86 H (14-36) U/L Alkaline Phosphatase 134 H (38-126) U/L Total Protein 5.7 L (6.3-8.2) g/dL Albumin 2.5 L (3.5-5.0) g/dL Lipase (23-300) U/L Assessment and Plan Assessment: Assessment and Plan 1. Metabolic encephalopathy 2. Hypokalemia 3. Abdominal pain likely secondary to pancreatitis 4. Hyperbilirubinemia 5. Macrocytosis 6. Thrombocytopenia 7. Abnormal INR 1. Resolved. Likely secondary to her hyper ammonemia. Ammonia level 47 to 20 this morning. Discontinue lactulose. Discontinue morphine, stick with [place]. One-to-one sitter. Fall precautions. 2. Hypokalemia likely secondary to diarrhea. Replace by mouth. 3. CT abdomen and pelvis shows cirrhosis, portal hypertension, cholelithiasis and hepatosplenomegaly. Gallbladder ultrasound shows a distended gallbladder with large amount of internal sludge and wall thickening. Lipase is 340 to 522 this morning. Pain management with Tylenol, [place]. Zofran as needed for nausea and vomiting. Protonix 40 g IV daily. low-fat diet and advance diet as tolerated. General surgery consulted and signed off. GI consulted, recommends conservative management as no obstruction seen on MRCP. MRCP shows dilated gallbladder, no dilated intra-hepatic bile duct, enlarged common bile duct consistent with chronic gallbladder dysfunction, cholecystitis is possible. 4. Total bilirubin is 7.3 to 6.3 to 4.3 to 4.5, AST of 55 to 51 to 58 to 86 and alkaline phosphatase of 161 to 132 to 114 to 134. Likely secondary to cirrhosis. MRCP shows no clear obstruction. 5. MCV is 104. Likely secondary to alcohol abuse. Daily CBC. 6. Platelet count of 66. Likely secondary to alcohol abuse. Daily CBC. 7. INR 1.7 to 1.6 to 1.8. Likely secondary to alcohol abuse. Daily coags panels. Patient admitted for pancreatitis. MRCP shows no obstruction. Low-fat diet and advance. Improving slowly clinically. Lipase slightly elevated today. Likely discharge tomorrow.
[2018-12-25] MEDS: SODIUM CHLORIDE 0.9% 1,000 ML IV SCH (01:39)
[2018-12-25 09:16] LABS: HCT 38.2 % (34.0-46.0); MCH 35.8 pg (25.0-35.0); MCV 105.1 fL (80.0-100.0); Macrocytosis Moderate; Mean Platelet Volume 7.5; RBC 3.64 m/uL (3.80-5.40); RDW 14.2 % (11.5-15.5)
[2018-12-25] MEDS: LACOSAMIDE 50 MG TABLET PO SCH (09:16)
[2018-12-25] MEDS: MAGNESIUM OXIDE 400 MG TAB PO SCH (09:17)
[2018-12-25] MEDS: MULTIVITAMINS, THERA 1 EACH TAB PO SCH (09:17)
[2018-12-25] MEDS: THIAMINE 100 MG TAB PO SCH (09:17)
[2018-12-25] MEDS: ESCITALOPRAM 20 MG TAB PO SCH (09:17)
[2018-12-25] MEDS: ATENOLOL 25 MG TAB PO SCH (09:17)
[2018-12-25] MEDS: TOPIRAMATE 25 MG TAB PO SCH (09:17)
[2018-12-25] MEDS: PANTOPRAZOLE 40 MG TABLET PO SCH (09:17)
[2018-12-25 09:22] LABS: Platelet Count 84 k/uL (150-450)
[2018-12-25 09:29] LABS: ALT 56 U/L (9-52); AST 90 U/L (14-36); Albumin 2.7 g/dL (3.5-5.0); Alkaline Phosphatase 137 U/L (38-126); Anion Gap 6 mmol/L; Blood Urea Nitrogen 3 mg/dL (7-17); Calcium 8.1 mg/dL (8.4-10.2); Carbon Dioxide 27 mmol/L (22-30); Chloride 109 mmol/L (98-107); Glucose 143 mg/dL (74-99); Lipase 937 U/L (23-300); Potassium 3.2 mmol/L (3.5-5.1); Sodium 142 mmol/L (137-145); Total Bilirubin 4.6 mg/dL (0.2-1.3); Total Protein 5.9 g/dL (6.3-8.2)
[2018-12-25] MEDS ORDERED: POTASSIUM CHLORIDE ER 20 MEQ TAB.ER PO STA (10:13)
--- NOTE | 2018-12-25 11:00 | P.DS ---
Providers Date of admission: 12/20/18 14:01 Expected date of discharge: 12/25/18 Attending physician: Janice Bergeron MD Consults: Gastroenterology, surgery Primary care physician: Joe Leary [place] Course: 53-year-old female with PMH of hypertension, likely liver cirrhosis presents to the ED for abdominal pain. Patient reports pain started 2 days ago. She is also noticed that she has vomited with every meal. Patient describes the vomitus as with mucus. Patient reports that the pain waxes and wanes, lasting for minutes at a time. Pain is 10 out of 10 in severity. Pain is located in the bilateral lower quadrants of the abdomen. Patient describes the pain is bandlike in nature. Pain is aggravated with food intake and alleviated with pain medication. Of note, patient reports history of alcohol abuse with the past 20 years. Patient' s drink of choice is bourbon, admitted to drinking half a fifth daily, last drink was on December 07. She denies any headaches, lower extremity edema, fever, chills, cough, chest pain, shortness of breath, palpitations, changes in urination or bowel habits. Patient was recently admitted and discharged on November 27 2018 for [place] he encephalopathy, cirrhosis, acute alcohol intoxication, hyperbilirubinemia, alcoholic pancreatitis and hydropic gallbladder. She was evaluated by general surgery and by gastroenterology. EGD was performed and was unremarkable. CT abdomen and pelvis was done during this admission which showed cirrhosis and portal hypertension and cholelithiasis. Gallbladder ultrasound showed a distended gallbladder with large amounts of internal sludge and wall thickening. CBC showed leukocytosis of 12.6. CBC showed a macrocytosis of 101 and a platelet count of 94. Coagulation panel shows an INR 1.7. CMP showed a potassium of 3.3, total bilirubin of 7.3 and AST of 55. Alkaline phosphatase is 161. Lipase is 340. Patient is admitted for pancreatitis, elevated liver enzymes, gastroenterology evaluation. With regard to her abdominal pain, this is likely secondary to pancreatitis. Her lipase went up from 340 to 522 to 937 on discharge. Her pain was initially controlled with Tylenol, [place] and morphine. She was given Zofran as needed for nausea and vomiting. Patient was started on Protonix 40 mg IV daily. Patient was initially nothing by mouth, transitioned to clear liquids and low fat diet and advanced as tolerated. Gen. surgery was consulted and signed off. Gastroenterology was consulted and recommended MRCP. MRCP showed a dilated gallbladder with no dilated intrahepatic bile ducts, enlarged common bile duct consistent with chronic gallbladder dysfunction, cholecystitis as possible. Gastroenterology recommended conservative management. Patient was noted to have elevated liver enzymes throughout her hospitalization. Her total bilirubin trended from 7.3-6.3-4.3-4.5. AST trended from 55-51-58-86. And alkaline phosphatase trended from [phone]. This is all thought to be secondary to cirrhosis. MRCP was done and excluded obstruction as a cause. Patient was noted to be macrocytic throughout her hospitalization. This was thought to be secondary to alcohol abuse. Her thrombocytopenia and elevated INR was also thought to be secondary to alcohol abuse. Patient was seen and examined prior to discharge. No acute events overnight. Patient reports complete resolution of her abdominal pain. No nausea or vomiting. Tolerating diet well. Looking forward to going home. General: [non toxic], [no distress], [appears at stated age] Derm: [warm], [dry] Head: [atraumatic], [normocephalic], [symmetric] Eyes: [EOMI], [no lid lag], [anicteric sclera] Mouth: [no lip lesion], [mucus membranes moist] Cardiovascular: [S1S2 reg], [no murmur], [positive DP pulse bilateral] Lungs: [CTA bilateral], [no rhonchi, no rales] , [no accessory muscle use] Abdominal: [soft], [nontender to palpation], [no guarding], [no appreciable organomegaly] Ext: [no gross muscle atrophy], [no edema], [no contractures] Neuro: [no focal neuro deficits] Psych: [Alert], [oriented], [appropriate affect] Assessment and Plan 1. Metabolic encephalopathy 2. Hypokalemia 3. Abdominal pain likely secondary to pancreatitis 4. Hyperbilirubinemia 5. Macrocytosis 6. Thrombocytopenia 7. Abnormal INR 1. Resolved. Likely secondary to her hyper ammonemia. Ammonia level 47 to 20 . Discontinue lactulose. Discontinue morphine, stick with [place]. Fall precautions. 2. Hypokalemia likely secondary to diarrhea. Replace by mouth. 3. CT abdomen and pelvis shows cirrhosis, portal hypertension, cholelithiasis and hepatosplenomegaly. Gallbladder ultrasound shows a distended gallbladder with large amount of internal sludge and wall thickening. Lipase is 340 to 522 to 937. Pain management with Tylenol, [place]. Zofran as needed for nausea and vomiting. Protonix 40 g IV daily. low-fat diet and advance diet as tolerated. General surgery consulted and signed off. GI consulted, recommends conservative management as no obstruction seen on MRCP. MRCP shows dilated gallbladder, no dilated intra-hepatic bile duct, enlarged common bile duct consistent with chronic gallbladder dysfunction, cholecystitis is possible. 4. Total bilirubin is 7.3 to 6.3 to 4.3 to 4.5 to 4.6, AST of 55 to 51 to 58 to 86 to 90 and alkaline phosphatase of 161 to 132 to 114 to 134 to 137. Likely secondary to cirrhosis. MRCP shows no clear obstruction. 5. MCV is 105.1. Likely secondary to alcohol abuse. Daily CBC. 6. Platelet count of 84. Likely secondary to alcohol abuse. Daily CBC. 7. INR 1.7 to 1.6 to 1.8. Likely secondary to alcohol abuse. Daily coags panels. Patient admitted for pancreatitis. MRCP shows no obstruction. Even though lipase is elevated, patient is clinically improved and is tolerating diet well. Her potassium is low and we will replace it this morning. Will follow BMP in the afternoon, discharge if potassium has normalized. Pertinent Studies: At abdomen CT Gallbladder ultrasound MRCP Patient Condition at Discharge: Stable Plan - Discharge Summary Discharge Rx Participant: No New Discharge Prescriptions: Continue Cholecalciferol [Vitamin D3] 1,000 unit PO DAILY Pantoprazole [Protonix] 40 mg PO DAILY #30 tablet. Topiramate [Topamax] 25 mg PO BID Multivit-Min/Iron/Folic/Lutein [Centrum Silver Women Tablet] 1 tab PO DAILY Magnesium Oxide [Cramer] 500 mg PO DAILY Lacosamide [Vimpat] 200 mg PO BID Olopatadine HCl 1 - 2 drop BOTH EYES Q8H Escitalopram [Lexapro] 20 mg PO DAILY Atenolol 25 mg PO DAILY Thiamine [Vitamin B-1] 100 mg PO BID #60 tab Disulfiram [Antabuse] 250 mg PO DAILY Potassium 99 mg PO DAILY Discharge Medication List Cholecalciferol [Vitamin D3] 1,000 unit PO DAILY 06/19/14 [History] Pantoprazole [Protonix] 40 mg PO DAILY #30 tablet. 01/27/16 [Rx] Lacosamide [Vimpat] 200 mg PO BID 07/29/18 [History] Magnesium Oxide [Cramer] 500 mg PO DAILY 07/29/18 [History] Multivit-Min/Iron/Folic/Lutein [Centrum Silver Women Tablet] 1 tab PO DAILY [History] Olopatadine HCl 1 - 2 drop BOTH EYES Q8H 07/29/18 [History] Topiramate [Topamax] 25 mg PO BID 07/29/18 [History] Atenolol 25 mg PO DAILY 11/22/18 [History] Escitalopram [Lexapro] 20 mg PO DAILY 11/22/18 [History] Thiamine [Vitamin B-1] 100 mg PO BID #60 tab 11/27/18 [Rx] Disulfiram [Antabuse] 250 mg PO DAILY 12/20/18 [History] Potassium 99 mg PO DAILY 12/20/18 [History] Follow up Appointment(s)/Referral(s): Joe Murguia MD [Primary Care Provider] - 1-2 days Cuauhtemoc Dean MD [STAFF PHYSICIAN] - 2 Weeks Ambulatory/Diagnostic Orders: Basic Metabolic Panel [LAB.AMB] Time Frame: 3 Days, Location: None Selected Activity/Diet/Wound Care/Special Instructions: Diet: Heart healthy Please follow-up with your primary care provider within 1-2 days of discharge. Please follow-up with gastroenterology with the appointment given to you. Please abstain from alcohol. Please take all medications as advised. Discharge Disposition: HOME SELF-CARE
[2018-12-25 12:04] VITALS: BP 112/72; PULSE 69; RESP 17; TEMP 97.6
[2018-12-25 13:08] LABS: Anion Gap 5 mmol/L; Blood Urea Nitrogen 4 mg/dL (7-17); Calcium 8.5 mg/dL (8.4-10.2); Carbon Dioxide 26 mmol/L (22-30); Chloride 109 mmol/L (98-107); Glucose 98 mg/dL (74-99); Sodium 140 mmol/L (137-145)
== END 2018-12-25 16:32 | disposition home or self-care (01) | DRG 438 ==
LOC: EC 11:01 → 3NMEDONC 13:25 → UNDOADMOB 13:25 → OBSVTOIN 14:01 → 3NMEDONC 14:31
PROVIDERS: ADMIT Internal Medicine; ATTEND Internal Medicine
DX: K85.90 Acute pancreatitis without necrosis or infection, unspecified (principal); G93.41 Metabolic encephalopathy; D68.4 Acquired coagulation factor deficiency; K76.6 Portal hypertension; K82.1 Hydrops of gallbladder; K80.10 Calculus of gallbladder with chronic cholecystitis without obstruction; D69.6 Thrombocytopenia, unspecified; R16.2 Hepatomegaly with splenomegaly, not elsewhere classified; K70.30 Alcoholic cirrhosis of liver without ascites; D75.89 Other specified diseases of blood and blood-forming organs; E87.6 Hypokalemia; G40.909 Epilepsy, unspecified, not intractable, without status epilepticus; I10 Essential (primary) hypertension; J45.909 Unspecified asthma, uncomplicated; F41.9 Anxiety disorder, unspecified; R19.7 Diarrhea, unspecified; R32 Unspecified urinary incontinence; K64.9 Unspecified hemorrhoids; F40.240 Claustrophobia; D72.829 Elevated white blood cell count, unspecified; Z79.899 Other long term (current) drug therapy; Z86.73 Personal history of transient ischemic attack (TIA), and cerebral infarction without residual deficits; Z87.442 Personal history of urinary calculi; Z87.891 Personal history of nicotine dependence; Z87.01 Personal history of pneumonia (recurrent); Z82.49 Family history of ischemic heart disease and other diseases of the circulatory system; Z83.3 Family history of diabetes mellitus; Z83.49 Family history of other endocrine, nutritional and metabolic diseases
CPT/HCPCS: 36415; 74176; 74183; 76705; 80048; 80053; 80320; 81003; 82140; 82150; 83690; 85025; 85027; 85610; 85730; 96361; 96372; 96374; 96375; 99285

== ENCOUNTER 2021-03-20 20:54 | Inpatient (IN) | payer BC ==
[2021-03-20 20:58] LABS: Glucose,Whole Blood 156 mg/dL (75-99)
--- NOTE | 2021-03-20 21:18 | ED ---
Altered Mental Status HPI - General Chief Complaint: Altered Mental Status Stated Complaint: Altered Mental Status Time Seen by Provider: 03/20/21 21:02 Source: EMS Mode of arrival: EMS Limitations: altered mental status - History of Present Illness Initial Comments: This patient is a 55-year-old woman who was brought by ambulance for altered mental status. She reportedly has history of alcohol use though had quit in December. Search of the past record Some previous liver disease. When I interview the patient, she states she thinks she had a seizure. She is not able to give much additional history. Patient denies pain and dyspnea. She is able to state that she is in the hospital although believes it is [facility]. Complaint: altered mental status -: unknown Severity: moderate Consistency of Symptoms: unknown Associated Symptoms: denies other symptoms - Related Data Home Medications Medication Instructions Recorded Confirmed Cholecalciferol [Vitamin D3 (25 1,000 unit PO DAILY 06/19/14 03/20/21 Mcg = 1000 Iu)] Lacosamide [Vimpat] 200 mg PO DAILY 07/29/18 03/20/21 Topiramate [Topamax] 25 mg PO DAILY 07/29/18 03/20/21 Folic Acid 0.4 mg PO DAILY 03/20/21 03/20/21 Lactulose [Constulose] 20 gm PO BID PRN 03/20/21 03/20/21 Melatonin 10 mg PO HS 03/20/21 03/20/21 Methocarbamol [Robaxin-750] 750 mg PO Q6H PRN 03/20/21 03/20/21 Pantoprazole [Protonix] 40 mg PO DAILY@1200 03/20/21 03/20/21 Propranolol [Inderal] 10 mg PO DAILY 03/20/21 03/20/21 Sertraline HCl [Zoloft] 200 mg PO HS 03/20/21 03/20/21 Thera Beta 1 tab PO DAILY 03/20/21 03/20/21 Thiamine [Vitamin B-1] 100 mg PO DAILY 03/20/21 03/20/21 hydrOXYzine pamoate [Vistaril] 25 mg PO Q6H PRN 03/20/21 03/20/21 levETIRAcetam [Keppra] 250 mg PO HS 03/20/21 03/20/21 Allergies Allergy/AdvReac Type Severity Reaction Status Date / Time No Known Allergies Allergy Verified 03/20/21 21:02 Review of Systems ROS Statement: Those systems with pertinent positive or pertinent negative responses have been documented in the HPI. ROS Other: All systems not noted in ROS Statement are negative. 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 Other hx: Jaundice, abdominal distention, seizure once, UTIs, kidney stones, sinus problems. History of Any Multi-Drug Resistant Organisms: None Reported Past Surgical History: Section, Tonsillectomy Additional Past Surgical History / Comment(s): 11/26/18 EGD, egd when a 7yr old child Past Anesthesia/Blood Transfusion Reactions: No Reported Reaction Additional Past Anesthesia/Blood Transfusion Reaction / Comment(s): CLAUSTERPHOBIA Past Psychological History: Anxiety Smoking Status: Current every day smoker Past Alcohol Use History: Daily Past Drug Use History: None Reported - Past Family History Father Additional Family Medical History / Comment(s): [employer]NE[employer]PL[employer]. Father is 83 yrs old. Mother Family Medical History: Coronary Artery Disease (CAD), Diabetes Mellitus, Hypertension, Pneumonia, Thyroid Disorder Additional Family Medical History / Comment(s): Mother has 3 coronary stents, gout. She is 80yrs old. General Exam General appearance: alert Head exam: Present: atraumatic, normocephalic Eye exam: Present: normal appearance. Absent: scleral icterus, conjunctival injection ENT exam: Present: mucous membranes dry Neck exam: Present: normal inspection, full ROM. Absent: meningismus Respiratory exam: Present: normal lung sounds bilaterally. Absent: respiratory distress, wheezes, rales, rhonchi, stridor Cardiovascular Exam: Present: normal rhythm, tachycardia, normal heart sounds. Absent: systolic murmur, diastolic murmur, rubs, gallop GI/Abdominal exam: Present: soft. Absent: distended, tenderness, guarding, rebound, rigid, mass Extremities exam: Present: normal inspection, normal capillary refill. Absent: pedal edema, calf tenderness Back exam: Present: normal inspection. Absent: CVA tenderness (R), CVA tenderness (L), vertebral tenderness Neurological exam: Present: alert, CN II-XII intact, motor sensory deficit (Patient not able to fully cooperate with neuro exam but no obvious deficit to simple commands). Absent: oriented X3 (The patient is oriented to person and recognizes that she was hospital but thought it was [facility]. Disoriented to date) Skin exam: Present: warm, dry, intact, normal color. Absent: rash Course Vital Signs 03/20/21 03/21/21 20:57 00:48 Temperature 99.7 F H Pulse Rate 103 H 101 H Respiratory 20 18 Rate Blood Pressure 122/71 111/70 O2 Sat by Pulse 97 95 Oximetry - Reevaluation(s) Reevaluation #1: 03/20/21 21:38 I was able to speak with the patient's at the bedside. He states that he noticed that approximately 10-12 days ago patient began acting differently. He states that initially her sleep pattern began changing. After that she was becoming more disoriented and confused. She was having more frequent falls at home. I he states that one week ago she did drink a bottle of vodka but he does not believe she has had access to alcohol other than that. The patient today not able to walk even with her walker, he was having to assist her to the bathroom. He states that it didn't appear to be a focal weakness but that she was forgetting how to walk. Medical Decision Making - Lab Data Result diagrams: 03/22/21 05:00 03/22/21 09:31 Lab Results 03/20/21 03/20/21 03/20/21 Range/Units 20:57 21:23 21:23 WBC 14.8 H (3.8-10.6) k/uL RBC 4.45 (3.80-5.40) m/uL Hgb 14.3 (11.4-16.0) gm/dL Hct 41.0 (34.0-46.0) % MCV 92.2 (80.0-100.0) fL MCH 32.1 (25.0-35.0) pg MCHC 34.8 (31.0-37.0) g/dL RDW 14.4 (11.5-15.5) % Plt Count 131 L (150-450) k/uL MPV 7.1 Neutrophils % 85 % Lymphocytes % 9 % Monocytes % 5 % Eosinophils % 0 % Basophils % 0 % Neutrophils # 12.6 H (1.3-7.7) k/uL Lymphocytes # 1.3 (1.0-4.8) k/uL Monocytes # 0.7 (0-1.0) k/uL Eosinophils # 0.0 (0-0.7) k/uL Basophils # 0.0 (0-0.2) k/uL Poikilocytosis Slight PT 13.0 H (9.0-12.0) sec INR 1.3 H (<1.2) APTT 20.7 L (22.0-30.0) sec Sodium (137-145) mmol/L Potassium (3.5-5.1) mmol/L Chloride (98-107) mmol/L Carbon Dioxide (22-30) mmol/L Anion Gap mmol/L BUN (7-17) mg/dL Creatinine (0.52-1.04) mg/dL Est GFR (CKD-EPI)AfAm (>60 ml/min/1.73 sqM) Est GFR (CKD-EPI)NonAf (>60 ml/min/1.73 sqM) Glucose (74-99) mg/dL POC Glucose (mg/dL) 156 H (75-99) mg/dL POC Glu [facility] Noreen Sherman Plasma Lactic Acid [place] (0.7-2.0) mmol/L Calcium (8.4-10.2) mg/dL Total Bilirubin (0.2-1.3) mg/dL AST (14-36) U/L ALT (4-34) U/L Alkaline Phosphatase (38-126) U/L Ammonia (<30) umol/L Total Protein (6.3-8.2) g/dL Albumin (3.5-5.0) g/dL Urine Color Urine Appearance (Clear) Urine pH (5.0-8.0) Ur Specific [place] (1.001-1.035) Urine Protein (Negative) Urine Glucose (UA) (Negative) Urine Ketones (Negative) Urine Blood (Negative) Urine Nitrite (Negative) Urine Bilirubin (Negative) Urine Urobilinogen (<2.0) mg/dL Ur Leukocyte Esterase (Negative) Urine RBC (0-5) /hpf Urine WBC (0-5) /hpf Hyaline Casts (0-2) /lpf Urine Mucus (None) /hpf Urine Opiates Screen (NotDetected) Ur Oxycodone Screen (NotDetected) Urine Methadone Screen (NotDetected) Ur Propoxyphene Screen (NotDetected) Ur Barbiturates Screen (NotDetected) U Tricyclic Antidepress (NotDetected) Ur Phencyclidine Scrn (NotDetected) Ur Amphetamines Screen (NotDetected) U Methamphetamines Scrn (NotDetected) U Benzodiazepines Scrn (NotDetected) Urine Cocaine Screen (NotDetected) U Marijuana (THC) Screen (NotDetected) 03/20/21 03/20/21 03/20/21 Range/Units 21:23 21:23 21:23 WBC (3.8-10.6) k/uL RBC (3.80-5.40) m/uL Hgb (11.4-16.0) gm/dL Hct (34.0-46.0) % MCV (80.0-100.0) fL MCH (25.0-35.0) pg MCHC (31.0-37.0) g/dL RDW (11.5-15.5) % Plt Count (150-450) k/uL MPV Neutrophils % % Lymphocytes % % Monocytes % % Eosinophils % % Basophils % % Neutrophils # (1.3-7.7) k/uL Lymphocytes # (1.0-4.8) k/uL Monocytes # (0-1.0) k/uL Eosinophils # (0-0.7) k/uL Basophils # (0-0.2) k/uL Poikilocytosis PT (9.0-12.0) sec INR (<1.2) APTT (22.0-30.0) sec Sodium 148 H (137-145) mmol/L Potassium 4.2 (3.5-5.1) mmol/L Chloride 110 H (98-107) mmol/L Carbon Dioxide 16 L (22-30) mmol/L Anion Gap 22 mmol/L BUN 19 H (7-17) mg/dL Creatinine 0.88 (0.52-1.04) mg/dL Est GFR (CKD-EPI)AfAm 86 (>60 ml/min/1.73 sqM) Est GFR (CKD-EPI)NonAf 75 (>60 ml/min/1.73 sqM) Glucose 128 H (74-99) mg/dL POC Glucose (mg/dL) (75-99) mg/dL POC Glu [facility] Plasma Lactic Acid [place] 1.3 (0.7-2.0) mmol/L Calcium 9.7 (8.4-10.2) mg/dL Total Bilirubin 3.0 H (0.2-1.3) mg/dL AST 950 H (14-36) U/L ALT 209 H (4-34) U/L Alkaline Phosphatase 90 (38-126) U/L Ammonia 138 H (<30) umol/L Total Protein 7.1 (6.3-8.2) g/dL Albumin 4.4 (3.5-5.0) g/dL Urine Color Yellow Urine Appearance Clear (Clear) Urine pH 6.0 (5.0-8.0) Ur Specific [place] 1.022 (1.001-1.035) Urine Protein 1+ H (Negative) Urine Glucose (UA) 1+ H (Negative) Urine Ketones 4+ H (Negative) Urine Blood Large H (Negative) Urine Nitrite Negative (Negative) Urine Bilirubin Negative (Negative) Urine Urobilinogen 2.0 (<2.0) mg/dL Ur Leukocyte Esterase Negative (Negative) Urine RBC <1 (0-5) /hpf Urine WBC 2 (0-5) /hpf Hyaline Casts 1 (0-2) /lpf Urine Mucus Rare H (None) /hpf Urine Opiates Screen (NotDetected) Ur Oxycodone Screen (NotDetected) Urine Methadone Screen (NotDetected) Ur Propoxyphene Screen (NotDetected) Ur Barbiturates Screen (NotDetected) U Tricyclic Antidepress (NotDetected) Ur Phencyclidine Scrn (NotDetected) Ur Amphetamines Screen (NotDetected) U Methamphetamines Scrn (NotDetected) U Benzodiazepines Scrn (NotDetected) Urine Cocaine Screen (NotDetected) U Marijuana (THC) Screen (NotDetected) 03/20/21 03/20/21 Range/Units 21:23 22:41 WBC (3.8-10.6) k/uL RBC (3.80-5.40) m/uL Hgb (11.4-16.0) gm/dL Hct (34.0-46.0) % MCV (80.0-100.0) fL MCH (25.0-35.0) pg MCHC (31.0-37.0) g/dL RDW (11.5-15.5) % Plt Count (150-450) k/uL MPV Neutrophils % % Lymphocytes % % Monocytes % % Eosinophils % % Basophils % % Neutrophils # (1.3-7.7) k/uL Lymphocytes # (1.0-4.8) k/uL Monocytes # (0-1.0) k/uL Eosinophils # (0-0.7) k/uL Basophils # (0-0.2) k/uL Poikilocytosis PT (9.0-12.0) sec INR (<1.2) APTT (22.0-30.0) sec Sodium (137-145) mmol/L Potassium (3.5-5.1) mmol/L Chloride (98-107) mmol/L Carbon Dioxide (22-30) mmol/L Anion Gap mmol/L BUN (7-17) mg/dL Creatinine (0.52-1.04) mg/dL Est GFR (CKD-EPI)AfAm (>60 ml/min/1.73 sqM) Est GFR (CKD-EPI)NonAf (>60 ml/min/1.73 sqM) Glucose (74-99) mg/dL POC Glucose (mg/dL) 64 L (75-99) mg/dL POC Glu [facility] ID Noreen Sherman Plasma Lactic Acid [place] (0.7-2.0) mmol/L Calcium (8.4-10.2) mg/dL Total Bilirubin (0.2-1.3) mg/dL AST (14-36) U/L ALT (4-34) U/L Alkaline Phosphatase (38-126) U/L Ammonia (<30) umol/L Total Protein (6.3-8.2) g/dL Albumin (3.5-5.0) g/dL Urine Color Urine Appearance (Clear) Urine pH (5.0-8.0) Ur Specific [place] (1.001-1.035) Urine Protein (Negative) Urine Glucose (UA) (Negative) Urine Ketones (Negative) Urine Blood (Negative) Urine Nitrite (Negative) Urine Bilirubin (Negative) Urine Urobilinogen (<2.0) mg/dL Ur Leukocyte Esterase (Negative) Urine RBC (0-5) /hpf Urine WBC (0-5) /hpf Hyaline Casts (0-2) /lpf Urine Mucus (None) /hpf Urine Opiates Screen Not Detected (NotDetected) Ur Oxycodone Screen Not Detected (NotDetected) Urine Methadone Screen Not Detected (NotDetected) Ur Propoxyphene Screen Not Detected (NotDetected) Ur Barbiturates Screen Not Detected (NotDetected) U Tricyclic Antidepress Not Detected (NotDetected) Ur Phencyclidine Scrn Not Detected (NotDetected) Ur Amphetamines Screen Not Detected (NotDetected) U Methamphetamines Scrn Not Detected (NotDetected) U Benzodiazepines Scrn Not Detected (NotDetected) Urine Cocaine Screen Not Detected (NotDetected) U Marijuana (THC) Screen Not Detected (NotDetected) - EKG Data -: EKG Interpreted by In EKG shows normal: sinus rhythm, axis (Normal), intervals (Normal), QRS complexes (Normal) Rate: normal (Rate 98 bpm) Interpretation: nonspecific ST-T wave changes Disposition Clinical Impression: Hyperammonemia, Altered mental status, Acute alcoholic hepatitis, Acute hepatic encephalopathy Disposition: ADMITTED IP TO THIS [facility] Condition: Serious
[2021-03-20] MEDS ORDERED: LORazepam 2 MG/ML INJ IV STA (21:28)
[2021-03-20 21:54] LABS: Basophils % (A) 0 %; Eosinophils % (A) 0 %; HGB 14.3 gm/dL (11.4-16.0); Lymphocytes # (A) 1.3 k/uL (1.0-4.8); Lymphocytes % (A) 9 %; MCH 32.1 pg (25.0-35.0); MCHC 34.8 g/dL (31.0-37.0); MCV 92.2 fL (80.0-100.0); Mean Platelet Volume 7.1; Monocytes # (A) 0.7 k/uL (0-1.0); Monocytes % (A) 5 %; Neutrophils # (A) 12.6 k/uL (1.3-7.7); Neutrophils % (A) 85 %; Platelet Count 131 k/uL (150-450); Poikilocytosis Slight; RBC 4.45 m/uL (3.80-5.40); RDW 14.4 % (11.5-15.5); WBC 14.8 k/uL (3.8-10.6)
[2021-03-20 21:58] LABS: Appearance,Urine Clear (Clear); Bilirubin,Urine Negative (Negative); Blood,Urine Large (Negative); Color,Urine Yellow; Glucose,Urine (UA) 1+ (Negative); Hyaline Casts,Urine 1 /lpf (0-2); Leukocyte Esterase,Urine Negative (Negative); Mucus,Urine Rare /hpf; Nitrite,Urine Negative (Negative); Protein,Urine 1+ (Negative); RBC,Urine <1 /hpf (0-5); Specific Gravity,Urine 1.022 (1.001-1.035); WBC,Urine 2 /hpf (0-5)
--- NOTE | 2021-03-20 22:01 | CT ---
EXAMINATION TYPE: CT brain wo con DATE OF EXAM: 03/20/2021 COMPARISON: 07/29/2018 HISTORY: ams CT DLP: 2312.4 mGycm Automated exposure control for dose reduction was used. Ventricles and sulci appear normal. There is no mass effect nor midline shift. There is no sign of in tracranial hemorrhage. The calvarium is intact. There is no evidence of cerebral edema. There is irre gular 2 cm area of hypodensity left posterior frontal lobe consistent with encephalomalacia without c hange. 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 No acute intracranial abnormality.
--- NOTE | 2021-03-20 22:04 | XR ---
EXAMINATION TYPE: XR chest 1V DATE OF EXAM: 03/20/2021 COMPARISON: 11/22/2018 HISTORY: Abdominal pain fever TECHNIQUE: Single view FINDINGS: There is poor inspiration with some subsegmental atelectasis at the lung bases. There are c hest leads. There is no obvious heart failure. IMPRESSION: Poor inspiration that is much less than old exam. No heart failure seen.
[2021-03-20 22:07] LABS: Ketones,Urine 4+ (Negative)
[2021-03-20 22:13] LABS: INR 1.3 (<1.2)
[2021-03-20 22:30] LABS: Lactic Acid, Venous 1.3 mmol/L (0.7-2.0)
[2021-03-20 22:32] LABS: Albumin 4.4 g/dL (3.5-5.0); Calcium 9.7 mg/dL (8.4-10.2); Partial Thromboplastin Time 20.7 sec (22.0-30.0); Total Protein 7.1 g/dL (6.3-8.2)
[2021-03-20 22:40] LABS: Potassium 4.2 mmol/L (3.5-5.1)
[2021-03-20] MEDS ORDERED: LACTULOSE 20 GM/30 ML CUP PO ONE (22:43)
[2021-03-20] MEDS ORDERED: SODIUM CHLORIDE 0.9% 1,000 ML IV ONE (22:45)
[2021-03-20] MEDS ORDERED: SODIUM CHLORIDE 0.9% 1,000 ML IV STA (22:45)
[2021-03-20] MEDS ORDERED: SODIUM CHLORIDE 0.9% 500 ML 500 ML IV STA (22:45)
[2021-03-20] MEDS ORDERED: DEXTROSE 50% SYRINGE 50 ML IVP STA (22:49)
[2021-03-20 23:01] LABS: Glucose,Whole Blood 64 mg/dL (75-99)
[2021-03-20] MEDS ORDERED: NALOXONE 0.4 MG/ML 1 ML VIAL IV PRN (23:11)
[2021-03-21 00:18] LABS: Glucose,Whole Blood 108 mg/dL (75-99)
[2021-03-21 01:09] LABS: Amphetamine Screen,Urine Not Detected (NotDetected); Barbiturate Screen,Urine Not Detected (NotDetected); Benzodiazepines Screen,Urine Not Detected (NotDetected); Cocaine Screen,Urine Not Detected (NotDetected); Methadone Screen, Urine Not Detected (NotDetected); Opiate Screen,Urine Not Detected (NotDetected); Oxycodone Screen, Urine Not Detected (NotDetected); Phencyclidine Screen,Urine Not Detected (NotDetected); Tricyclic Antidepressant,Urine Not Detected (NotDetected); Urn Cannabinoid Scrn Not Detected (NotDetected)
--- NOTE | 2021-03-21 03:43 | P.HPIM ---
History of Present Illness H&P Date: 03/20/21 Chief Complaint: altered mental status 55-year-old female with advanced liver cirrhosis secondary to alcohol abuse Patient was brought in by ambulance due to altered mental status patient unable to provide any meaningful history at this time. is not available at this time history obtained by reviewing medical records and discussing the case with the ED doctor. reported to the ED doctor that the patient over the past 2 weeks has been progressively getting worse seems to be more confused having more frequent falls for which he decided to bring her to the hospital. The patient last drink was about a week ago when she had a bottle of vodka however before that he believes that she hadn't had any alcohol since November There is no report of GI bleeding no report of fevers or chills no reports of coughing or any chest pain or trouble breathing Patient is laying in bed she seems to be restless however she is arousable to verbal stimulation she she recognizes that she is at the hospital but she doesn't recognize which hospital she denies any complaints at this time Blood work showed elevated white count mild thrombocytopenia, hyponatremia, ani on gap metabolic acidosis normal lactic acid, elevated liver enzymes and elevated ammonia Review of Systems ROS unobtainable: due to mental status Past Medical History Past Medical History: Asthma, CVA/TIA, Hypertension, Pneumonia, Seizure Disorder Additional Past Medical History / Comment(s): Pt recently admitted to [facility] on 11/22/18 acute wernicke encephalopathy 2ndary to thiamine deficiency from cirrhosis, ETOH abuse, alcohol intoxication, acute pancreatitis, portal htn, hyperbilirubinemia, thrombocytopenia. Other hx: Jaundice, abdominal distention, seizure once, UTIs, kidney stones, sinus problems. History of Any Multi-Drug Resistant Organisms: None Reported Past Surgical History: Section, Tonsillectomy Additional Past Surgical History / Comment(s): 11/26/18 EGD, egd when a 7yr old child Past Anesthesia/Blood Transfusion Reactions: No Reported Reaction Additional Past Anesthesia/Blood Transfusion Reaction / Comment(s): CLAUSTERPHOBIA Past Psychological History: Anxiety Smoking Status: Current every day smoker Past Alcohol Use History: Daily Past Drug Use History: None Reported - Past Family History Father Additional Family Medical History / Comment(s): CORNEA TRANSPLANT. Father is 83 yrs old. Mother Family Medical History: Coronary Artery Disease (CAD), Diabetes Mellitus, Hypertension, Pneumonia, Thyroid Disorder Additional Family Medical History / Comment(s): Mother has 3 coronary stents, gout. She is 80yrs old. Medications and Allergies Home Medications Medication Instructions Recorded Confirmed Type Cholecalciferol [Vitamin D3 (25 1,000 unit PO DAILY 06/19/14 03/20/21 History Mcg = 1000 Iu)] Lacosamide [Vimpat] 200 mg PO DAILY 07/29/18 03/20/21 History Topiramate [Topamax] 25 mg PO DAILY 07/29/18 03/20/21 History Folic Acid 0.4 mg PO DAILY 03/20/21 03/20/21 History Lactulose [Constulose] 20 gm PO BID PRN 03/20/21 03/20/21 History Melatonin 10 mg PO HS 03/20/21 03/20/21 History Methocarbamol [Robaxin-750] 750 mg PO Q6H PRN 03/20/21 03/20/21 History Pantoprazole [Protonix] 40 mg PO DAILY@1200 03/20/21 03/20/21 History Propranolol [Inderal] 10 mg PO DAILY 03/20/21 03/20/21 History Sertraline HCl [Zoloft] 200 mg PO HS 03/20/21 03/20/21 History Thera Beta 1 tab PO DAILY 03/20/21 03/20/21 History Thiamine [Vitamin B-1] 100 mg PO DAILY 03/20/21 03/20/21 History hydrOXYzine pamoate [Vistaril] 25 mg PO Q6H PRN 03/20/21 03/20/21 History levETIRAcetam [Keppra] 250 mg PO HS 03/20/21 03/20/21 History Allergies Allergy/AdvReac Type Severity Reaction Status Date / Time No Known Allergies Allergy Verified 03/20/21 21:02 Physical Exam Vitals: Vital Signs Temp Pulse Pulse Resp BP BP Pulse Ox 03/21/21 02:00 100 18 100/61 93 L 03/21/21 00:48 101 H 18 111/70 95 03/20/21 20:57 99.7 F H 103 H 20 122/71 97 Intake and Output 03/20/21 03/20/21 03/21/21 14:59 22:59 06:59 Other: Weight 62.369 kg Constitutional: Patient is laying in bed seems to be restless, she is arousable to verbal stimulation Eyes: scleral jaundice, moist conjunctiva, Pupils equal round reactive to light ENMT: NC/AT Oropharynx clear, dry mucous membranes, no erythema, or exudates Neck: Supple, FROM, no masses, or JVD No carotid bruits No thyromegaly Lungs: Clear to auscultation Clear to percussion Normal respiratory effort, no accessory muscle use Cardiovascular: Heart regular in rate and rhythm, No murmurs, gallops, or rubs No peripheral edema Abdominal: Soft Nontender, no guarding, rebound or rigidity Abdomen moving with respiration Normoactive bowel sounds No hepatomegaly, No splenomegaly No palpable mass No abdominal wall hernia noted Skin: Normal temperature, tone, texture, turgor No induration No subcutaneous nodules No rash, lesions No ulcers Extremities: No digital cyanosis No clubbing Pedal pulses intact and symmetrical Radial pulses intact and symmetrical No calf tenderness Psychiatric: Patient seems to be restless and confused, responds to verbal stimulation Neuro unable to perform appropriate neuro exam unable to check for asterixis patient seems to be restless in bed She is moving all extremities Lymphatics: no palpable cervical or supraclavicular , or inguinal lymph nodes Results CBC & Chem 7: 03/20/21 21:23 03/20/21 21:23 Labs: Abnormal Lab Results - Last 24 Hours (Table) 03/20/21 03/20/21 03/20/21 Range/Units 20:57 21:23 21:23 WBC 14.8 H (3.8-10.6) k/uL Plt Count 131 L (150-450) k/uL Neutrophils # 12.6 H (1.3-7.7) k/uL PT 13.0 H (9.0-12.0) sec INR 1.3 H (<1.2) APTT 20.7 L (22.0-30.0) sec Sodium (137-145) mmol/L Chloride (98-107) mmol/L Carbon Dioxide (22-30) mmol/L BUN (7-17) mg/dL Glucose (74-99) mg/dL POC Glucose (mg/dL) 156 H (75-99) mg/dL Total Bilirubin (0.2-1.3) mg/dL AST (14-36) U/L ALT (4-34) U/L Ammonia (<30) umol/L Urine Protein (Negative) Urine Glucose (UA) (Negative) Urine Ketones (Negative) Urine Blood (Negative) Urine Mucus (None) /hpf 03/20/21 03/20/21 03/20/21 Range/Units 21:23 21:23 21:23 WBC (3.8-10.6) k/uL Plt Count (150-450) k/uL Neutrophils # (1.3-7.7) k/uL PT (9.0-12.0) sec INR (<1.2) APTT (22.0-30.0) sec Sodium 148 H (137-145) mmol/L Chloride 110 H (98-107) mmol/L Carbon Dioxide 16 L (22-30) mmol/L BUN 19 H (7-17) mg/dL Glucose 128 H (74-99) mg/dL POC Glucose (mg/dL) (75-99) mg/dL Total Bilirubin 3.0 H (0.2-1.3) mg/dL AST 950 H (14-36) U/L ALT 209 H (4-34) U/L Ammonia 138 H (<30) umol/L Urine Protein 1+ H (Negative) Urine Glucose (UA) 1+ H (Negative) Urine Ketones 4+ H (Negative) Urine Blood Large H (Negative) Urine Mucus Rare H (None) /hpf 03/20/21 03/20/21 Range/Units 22:41 23:58 WBC (3.8-10.6) k/uL Plt Count (150-450) k/uL Neutrophils # (1.3-7.7) k/uL PT (9.0-12.0) sec INR (<1.2) APTT (22.0-30.0) sec Sodium (137-145) mmol/L Chloride (98-107) mmol/L Carbon Dioxide (22-30) mmol/L BUN (7-17) mg/dL Glucose (74-99) mg/dL POC Glucose (mg/dL) 64 L 108 H (75-99) mg/dL Total Bilirubin (0.2-1.3) mg/dL AST (14-36) U/L ALT (4-34) U/L Ammonia (<30) umol/L Urine Protein (Negative) Urine Glucose (UA) (Negative) Urine Ketones (Negative) Urine Blood (Negative) Urine Mucus (None) /hpf Assessment and Plan Assessment: Acute hepatic encephalopathy secondary to hyperammonemia Chronic liver cirrhosis secondary to alcohol abuse Mild thrombocytopenia Admitting Metabolic acidosis Hypernatremia Plan Lactulose every hour until bowel movement and target 3 bowel movements a day GI consultation Resume home medications Fall precautions Seizure precautions DVT prophylaxis heparin subcu Thiamine and folic acid Breathing treatments as needed for history of asthma Monitor vital signs Leukocytosis, no evidence of primary infection Monitor electrolytes and liver enzymes Monitor ammonia level Check lipase Computed tomography scan of the brain showed no acute pathology pepcid CODE STATUS: Full code DVT prophylaxis: heparin sc Discussed with: Patient, ER, RN Anticipated length of stay more than [address]: Pending clinical course A total of 65 minutes was spent on the care of this complex patient more than 50% of the time was spent in counseling and care coordination.
[2021-03-21 05:59] LABS: Glucose,Whole Blood 55 mg/dL (75-99)
[2021-03-21] MEDS: LACTULOSE 20 GM/30 ML CUP PO SCH ×16 (06:06→23:15)
[2021-03-21] MEDS ORDERED: DEXTROSE 50% SYRINGE 50 ML IVP STA (06:07)
[2021-03-21 06:23] LABS: Glucose,Whole Blood 193 mg/dL (75-99)
[2021-03-21 08:10] LABS: Glucose,Whole Blood 76 mg/dL (75-99)
[2021-03-21] MEDS ORDERED: LACTULOSE 200 GM/300 ML (FROM 1/2 GAL JUG) RECTAL SCH (09:00)
[2021-03-21] MEDS ORDERED: FAMOTIDINE 20 MG TAB PO SCH (09:00)
[2021-03-21] MEDS ORDERED: LACOSAMIDE 50 MG TABLET PO SCH (09:00)
[2021-03-21] MEDS ORDERED: THIAMINE 100 MG TAB PO SCH (09:00)
[2021-03-21 10:05] LABS: Glucose,Whole Blood 61 mg/dL (75-99)
[2021-03-21 10:27] LABS: Glucose,Whole Blood 57 mg/dL (75-99)
[2021-03-21] MEDS ORDERED: DEXTROSE 5%-0.45% NACL 1,000 ML IV SCH (10:30)
[2021-03-21] MEDS: FOLIC ACID 1 MG TAB PO SCH (10:51)
[2021-03-21] MEDS: PROPRANOLOL 10 MG TAB PO SCH (10:51)
[2021-03-21] MEDS: TOPIRAMATE 25 MG TAB PO SCH (10:52)
[2021-03-21 11:03] LABS: Glucose,Whole Blood 64 mg/dL (75-99)
[2021-03-21 11:25] LABS: Glucose,Whole Blood 56 mg/dL (75-99)
[2021-03-21 11:31] LABS: Basophils # (A) 0.02 X 10*3/uL (0.00-0.10); Basophils % (A) 0.1 %; Eosinophils # (A) 0 X 10*3/uL (0.04-0.35); Eosinophils % (A) 0 %; HCT 36.6 % (37.2-46.3); HGB 12.2 g/dL (12.0-15.0); Lymphocytes # (A) 1.53 X 10*3/uL (0.90-5.00); Lymphocytes % (A) 9.2 %; MCH 31.7 pg (27.0-32.0); MCHC 33.3 g/dL (32.0-37.0); MCV 95.1 fL (80.0-97.0); Mean Platelet Volume 9.7 fL (9.5-12.2); Neutrophils # (A) 13.96 X 10*3/uL (1.80-7.70); Neutrophils % (A) 84.3 %; Platelet Count 113 X 10*3/uL (140-440); RBC 3.85 X 10*6/uL (4.10-5.20); RDW 14.8 % (11.5-14.5); WBC 16.58 X 10*3/uL (4.50-10.00)
[2021-03-21 11:44] LABS: African American GFR (CKD) 58.9 (60.0-200.0); Albumin 3.8 g/dL (3.80-4.90); Albumin/Globulin Ratio 1.9 (1.60-3.17); Anion Gap 18.4 mmol/L (4.00-12.00); BUN/Creat Ratio 19.17 Ratio (12.00-20.00); Calcium 8.6 mg/dL (8.7-10.3); Carbon Dioxide 19.6 mmol/L (21.6-31.8); Non-African American GFR(CKD) 50.8 (60.0-200.0); Potassium 3.9 mmol/L (3.5-5.5); Total Bilirubin 2.3 mg/dL (0.2-1.2); Total Protein 5.8 g/dL (6.2-8.2)
[2021-03-21] MEDS ORDERED: LORazepam 2 MG/ML INJ IM STA (11:53)
[2021-03-21 11:55] LABS: Glucose,Whole Blood 50 mg/dL (75-99)
[2021-03-21 12:29] LABS: Glucose,Whole Blood 57 mg/dL (75-99)
[2021-03-21] MEDS ORDERED: HALOPERIDOL LACTATE 5 MG/ML 1 ML VIAL IM STA (12:40)
[2021-03-21] MEDS ORDERED: SODIUM CHLORIDE 0.9% 500 ML 500 ML IV ONE (12:42)
[2021-03-21 12:45] LABS: Glucose,Whole Blood 78 mg/dL (75-99)
[2021-03-21] MEDS: LACTULOSE 200 GM/300 ML (FROM 1/2 GAL JUG) RECTAL SCH ×4 (13:29→23:14)
[2021-03-21] MEDS ORDERED: levETIRAcetam IV 500 MG in SODIUM CHLORIDE 0.9% 100 ML IVPB SCH (13:30)
--- NOTE | 2021-03-21 14:29 | P.PN ---
Subjective Progress Note Date: 03/21/21 Patient is extremely confused this morning. She is restless and trying to cause some turning in bed. She was kicking in every direction. She reports to IV since this morning. She is not redirecting or following commands. Objective - Vital Signs Vital signs: Vital Signs Temp 98.1 F 03/21/21 08:00 Pulse 64 03/21/21 08:00 Resp 16 03/21/21 08:00 BP 116/69 03/21/21 08:00 Pulse Ox 92 L 03/21/21 08:00 Intake & Output 03/20/21 03/21/21 03/21/21 18:59 06:59 18:59 Weight 62.369 kg Other: Voiding Method Diaper Diaper # Voids 1 # Bowel Movements 1 - Exam General: The patient is very agitated and confused Eye: there is icteric conjunctiva bilaterally. Neck: The neck is supple, there is no JVD. Cardiovascular: Normal S1-S2, no S3-S4, no murmurs. Respiratory: Lungs clear to auscultation bilaterally Gastrointestinal: Abdomen is soft, nontender Musculoskeletal: There is no pedal edema. Skin: Skin is warm and dry - Labs CBC & Chem 7: 03/21/21 07:06 03/21/21 07:06 Labs: Abnormal Lab Results - Last 24 Hours (Table) 03/20/21 03/20/21 03/20/21 Range/Units 20:57 21:23 21:23 WBC 14.8 H (3.8-10.6) k/uL RBC (4.10-5.20) X 10*6/uL Hct (37.2-46.3) % RDW (11.5-14.5) % Plt Count 131 L (150-450) k/uL Absolute Nucleated RBC (0.00-0.00) X 10*3/uL Immature Gran # (0.00-0.04) X 10*3/uL Neutrophils # 12.6 H (1.3-7.7) k/uL Eosinophils # (0.04-0.35) X 10*3/uL NRBC/100 WBC Diff (0.0-0.0) /100 WBCS PT 13.0 H (9.0-12.0) sec INR 1.3 H (<1.2) APTT 20.7 L (22.0-30.0) sec Sodium (137-145) mmol/L Chloride (98-107) mmol/L Carbon Dioxide (22-30) mmol/L Anion Gap (4.00-12.00) mmol/L BUN (7-17) mg/dL Est GFR (CKD-EPI)AfAm (60.0-200.0) Est GFR (CKD-EPI)NonAf (60.0-200.0) Glucose (74-99) mg/dL POC Glucose (mg/dL) 156 H (75-99) mg/dL Calcium (8.7-10.3) mg/dL Total Bilirubin (0.2-1.3) mg/dL AST (14-36) U/L ALT (4-34) U/L Ammonia (<30) umol/L Total Protein (6.2-8.2) g/dL Lipase (14-63) U/L Urine Protein (Negative) Urine Glucose (UA) (Negative) Urine Ketones (Negative) Urine Blood (Negative) Urine Mucus (None) /hpf 03/20/21 03/20/21 03/20/21 Range/Units 21:23 21:23 21:23 WBC (3.8-10.6) k/uL RBC (4.10-5.20) X 10*6/uL Hct (37.2-46.3) % RDW (11.5-14.5) % Plt Count (150-450) k/uL Absolute Nucleated RBC (0.00-0.00) X 10*3/uL Immature Gran # (0.00-0.04) X 10*3/uL Neutrophils # (1.3-7.7) k/uL Eosinophils # (0.04-0.35) X 10*3/uL NRBC/100 WBC Diff (0.0-0.0) /100 WBCS PT (9.0-12.0) sec INR (<1.2) APTT (22.0-30.0) sec Sodium 148 H (137-145) mmol/L Chloride 110 H (98-107) mmol/L Carbon Dioxide 16 L (22-30) mmol/L Anion Gap (4.00-12.00) mmol/L BUN 19 H (7-17) mg/dL Est GFR (CKD-EPI)AfAm (60.0-200.0) Est GFR (CKD-EPI)NonAf (60.0-200.0) Glucose 128 H (74-99) mg/dL POC Glucose (mg/dL) (75-99) mg/dL Calcium (8.7-10.3) mg/dL Total Bilirubin 3.0 H (0.2-1.3) mg/dL AST 950 H (14-36) U/L ALT 209 H (4-34) U/L Ammonia 138 H (<30) umol/L Total Protein (6.2-8.2) g/dL Lipase (14-63) U/L Urine Protein 1+ H (Negative) Urine Glucose (UA) 1+ H (Negative) Urine Ketones 4+ H (Negative) Urine Blood Large H (Negative) Urine Mucus Rare H (None) /hpf 03/20/21 03/20/21 03/21/21 Range/Units 22:41 23:58 05:56 WBC (3.8-10.6) k/uL RBC (4.10-5.20) X 10*6/uL Hct (37.2-46.3) % RDW (11.5-14.5) % Plt Count (150-450) k/uL Absolute Nucleated RBC (0.00-0.00) X 10*3/uL Immature Gran # (0.00-0.04) X 10*3/uL Neutrophils # (1.3-7.7) k/uL Eosinophils # (0.04-0.35) X 10*3/uL NRBC/100 WBC Diff (0.0-0.0) /100 WBCS PT (9.0-12.0) sec INR (<1.2) APTT (22.0-30.0) sec Sodium (137-145) mmol/L Chloride (98-107) mmol/L Carbon Dioxide (22-30) mmol/L Anion Gap (4.00-12.00) mmol/L BUN (7-17) mg/dL Est GFR (CKD-EPI)AfAm (60.0-200.0) Est GFR (CKD-EPI)NonAf (60.0-200.0) Glucose (74-99) mg/dL POC Glucose (mg/dL) 64 L 108 H 55 L (75-99) mg/dL Calcium (8.7-10.3) mg/dL Total Bilirubin (0.2-1.3) mg/dL AST (14-36) U/L ALT (4-34) U/L Ammonia (<30) umol/L Total Protein (6.2-8.2) g/dL Lipase (14-63) U/L Urine Protein (Negative) Urine Glucose (UA) (Negative) Urine Ketones (Negative) Urine Blood (Negative) Urine Mucus (None) /hpf 03/21/21 03/21/21 03/21/21 Range/Units 06:22 07:06 07:06 WBC 16.58 H (3.8-10.6) k/uL RBC 3.85 L (4.10-5.20) X 10*6/uL Hct 36.6 L (37.2-46.3) % RDW 14.8 H (11.5-14.5) % Plt Count 113 L (150-450) k/uL Absolute Nucleated RBC 0.07 H (0.00-0.00) X 10*3/uL Immature Gran # 0.07 H (0.00-0.04) X 10*3/uL Neutrophils # 13.96 H (1.3-7.7) k/uL Eosinophils # 0 L (0.04-0.35) X 10*3/uL NRBC/100 WBC Diff 0.4 H (0.0-0.0) /100 WBCS PT (9.0-12.0) sec INR (<1.2) APTT (22.0-30.0) sec Sodium 153 H (137-145) mmol/L Chloride 115 H (98-107) mmol/L Carbon Dioxide 19.6 L (22-30) mmol/L Anion Gap 18.40 H (4.00-12.00) mmol/L BUN (7-17) mg/dL Est GFR (CKD-EPI)AfAm 58.9 L (60.0-200.0) Est GFR (CKD-EPI)NonAf 50.8 L (60.0-200.0) Glucose (74-99) mg/dL POC Glucose (mg/dL) 193 H (75-99) mg/dL Calcium 8.6 L (8.7-10.3) mg/dL Total Bilirubin 2.3 H (0.2-1.3) mg/dL AST 748 H (14-36) U/L ALT 244 H (4-34) U/L Ammonia (<30) umol/L Total Protein 5.8 L (6.2-8.2) g/dL Lipase 69 H (14-63) U/L Urine Protein (Negative) Urine Glucose (UA) (Negative) Urine Ketones (Negative) Urine Blood (Negative) Urine Mucus (None) /hpf 03/21/21 03/21/21 03/21/21 Range/Units 07:06 10:03 10:24 WBC (3.8-10.6) k/uL RBC (4.10-5.20) X 10*6/uL Hct (37.2-46.3) % RDW (11.5-14.5) % Plt Count (150-450) k/uL Absolute Nucleated RBC (0.00-0.00) X 10*3/uL Immature Gran # (0.00-0.04) X 10*3/uL Neutrophils # (1.3-7.7) k/uL Eosinophils # (0.04-0.35) X 10*3/uL NRBC/100 WBC Diff (0.0-0.0) /100 WBCS PT (9.0-12.0) sec INR (<1.2) APTT (22.0-30.0) sec Sodium (137-145) mmol/L Chloride (98-107) mmol/L Carbon Dioxide (22-30) mmol/L Anion Gap (4.00-12.00) mmol/L BUN (7-17) mg/dL Est GFR (CKD-EPI)AfAm (60.0-200.0) Est GFR (CKD-EPI)NonAf (60.0-200.0) Glucose (74-99) mg/dL POC Glucose (mg/dL) 61 L 57 L (75-99) mg/dL Calcium (8.7-10.3) mg/dL Total Bilirubin (0.2-1.3) mg/dL AST (14-36) U/L ALT (4-34) U/L Ammonia 138 H (<30) umol/L Total Protein (6.2-8.2) g/dL Lipase (14-63) U/L Urine Protein (Negative) Urine Glucose (UA) (Negative) Urine Ketones (Negative) Urine Blood (Negative) Urine Mucus (None) /hpf 03/21/21 03/21/21 03/21/21 Range/Units 10:54 11:20 11:46 WBC (3.8-10.6) k/uL RBC (4.10-5.20) X 10*6/uL Hct (37.2-46.3) % RDW (11.5-14.5) % Plt Count (150-450) k/uL Absolute Nucleated RBC (0.00-0.00) X 10*3/uL Immature Gran # (0.00-0.04) X 10*3/uL Neutrophils # (1.3-7.7) k/uL Eosinophils # (0.04-0.35) X 10*3/uL NRBC/100 WBC Diff (0.0-0.0) /100 WBCS PT (9.0-12.0) sec INR (<1.2) APTT (22.0-30.0) sec Sodium (137-145) mmol/L Chloride (98-107) mmol/L Carbon Dioxide (22-30) mmol/L Anion Gap (4.00-12.00) mmol/L BUN (7-17) mg/dL Est GFR (CKD-EPI)AfAm (60.0-200.0) Est GFR (CKD-EPI)NonAf (60.0-200.0) Glucose (74-99) mg/dL POC Glucose (mg/dL) 64 L 56 L 50 L (75-99) mg/dL Calcium (8.7-10.3) mg/dL Total Bilirubin (0.2-1.3) mg/dL AST (14-36) U/L ALT (4-34) U/L Ammonia (<30) umol/L Total Protein (6.2-8.2) g/dL Lipase (14-63) U/L Urine Protein (Negative) Urine Glucose (UA) (Negative) Urine Ketones (Negative) Urine Blood (Negative) Urine Mucus (None) /hpf 03/21/21 Range/Units 12:27 WBC (3.8-10.6) k/uL RBC (4.10-5.20) X 10*6/uL Hct (37.2-46.3) % RDW (11.5-14.5) % Plt Count (150-450) k/uL Absolute Nucleated RBC (0.00-0.00) X 10*3/uL Immature Gran # (0.00-0.04) X 10*3/uL Neutrophils # (1.3-7.7) k/uL Eosinophils # (0.04-0.35) X 10*3/uL NRBC/100 WBC Diff (0.0-0.0) /100 WBCS PT (9.0-12.0) sec INR (<1.2) APTT (22.0-30.0) sec Sodium (137-145) mmol/L Chloride (98-107) mmol/L Carbon Dioxide (22-30) mmol/L Anion Gap (4.00-12.00) mmol/L BUN (7-17) mg/dL Est GFR (CKD-EPI)AfAm (60.0-200.0) Est GFR (CKD-EPI)NonAf (60.0-200.0) Glucose (74-99) mg/dL POC Glucose (mg/dL) 57 L (75-99) mg/dL Calcium (8.7-10.3) mg/dL Total Bilirubin (0.2-1.3) mg/dL AST (14-36) U/L ALT (4-34) U/L Ammonia (<30) umol/L Total Protein (6.2-8.2) g/dL Lipase (14-63) U/L Urine Protein (Negative) Urine Glucose (UA) (Negative) Urine Ketones (Negative) Urine Blood (Negative) Urine Mucus (None) /hpf Assessment and Plan Assessment: Acute hepatic encephalopathy secondary to hyperammonemia Chronic liver cirrhosis secondary to alcohol abuse Mild thrombocytopenia Metabolic acidosis Hypernatremia Plan I change lactulose to rectal every 2 hours Given 1 time dose of Haldol I would apply restrain for patient safety and request a bedside sitter Repeat lab work in the morning including ammonia level Start rifaximin mean when patient is more alert and able to swallow and bedside updated about her current clinical condition Patient is full code
[2021-03-21] MEDS ORDERED: VANCOMYCIN IV PER PHARMACY 1 EACH MISC MISCELLANE PRN (14:35)
[2021-03-21] MEDS ORDERED: HALOPERIDOL LACTATE 5 MG/ML 1 ML VIAL IM PRN ×2 (14:37→14:39)
[2021-03-21] MEDS ORDERED: HALOPERIDOL LACTATE 5 MG/ML 1 ML VIAL IVP PRN (14:38)
[2021-03-21 14:56] LABS: Glucose,Whole Blood 40 mg/dL (75-99)
[2021-03-21] MEDS ORDERED: VANCOMYCIN 1,250 MG in SODIUM CHLORIDE 0.9% 250 ML IVPB ONE (15:00)
[2021-03-21] MEDS ORDERED: GLUCAGON 1 MG/ML VIAL IM STA (15:05)
[2021-03-21] MEDS ORDERED: DEXTROSE 50% SYRINGE 50 ML IVP ONE (15:09)
[2021-03-21] MEDS ORDERED: propofoL 100 ML IV ONE ×2 (15:21→17:14)
[2021-03-21 15:23] LABS: Glucose,Whole Blood 35 mg/dL (75-99)
[2021-03-21] MEDS ORDERED: DEXTROSE 5% IN WATER 1,000 ML IV SCH (15:45)
[2021-03-21] MEDS ORDERED: DEXTROSE 10% IN WATER 500 ML in EMPTY BAG 1 BAG IV SCH (15:45)
[2021-03-21] MEDS ORDERED: DEXTROSE 10% IN WATER 1,000 ML IV SCH (16:00)
[2021-03-21 16:07] LABS: ABG Base Excess -5.5 mmol/L; ABG HCO3 20 mmol/L (21-25); ABG Oxygen Saturation 96.9 % (94-97); ABG PCO2 33 mmHg (35-45); ABG PH 7.38 (7.35-7.45); ABG PO2 88 mmHg (83-108); ABG TCO2 21 mmol/L (19-24)
[2021-03-21 16:09] LABS: Allen Test Performed? no
[2021-03-21 16:13] LABS: Glucose,Whole Blood 146 mg/dL (75-99)
--- NOTE | 2021-03-21 16:17 | XR ---
EXAMINATION TYPE: XR chest 1V portable DATE OF EXAM: 03/21/2021 COMPARISON: Yesterday HISTORY: Intubation. TECHNIQUE: Single view FINDINGS: There is endotracheal tube which is 4.5 cm into the right mainstem bronchus. There is almos t complete atelectasis of the left lung. The heart and mediastinum are shifted to the left side. The right lung is fairly clear. There is nasogastric tube with the tip over the gastric fundus. IMPRESSION: Malposition of the endotracheal tube. Complete atelectasis of the left lung.
--- NOTE | 2021-03-21 16:22 | XR ---
EXAMINATION TYPE: XR chest 1V portable DATE OF EXAM: 03/21/2021 COMPARISON: Today HISTORY: Check tube placement TECHNIQUE: Single view FINDINGS: Endotracheal tube is 1.6 cm from the robert. There is much improved aeration of the left bernabe ng. There is some interstitial infiltrates in the left lung. There is linear infiltrate and atelectas is medial right upper lobe. There is nasogastric tube in the stomach. There are chest leads. IMPRESSION: Significant improved aeration of the left lung. Endotracheal tube is low and could be pul led back 2 cm
[2021-03-21 16:28] LABS: Basophils % (A) 0 %; Eosinophils % (A) 0 %; HCT 37.3 % (34.0-46.0); HGB 12.9 gm/dL (11.4-16.0); Hyperchromasia Slight; Lymphocytes # (A) 0.6 k/uL (1.0-4.8); Lymphocytes % (A) 4 %; MCH 31.7 pg (25.0-35.0); MCHC 34.5 g/dL (31.0-37.0); Mean Platelet Volume 7.5; Monocytes # (A) 0.6 k/uL (0-1.0); Monocytes % (A) 4 %; Neutrophils % (A) 91 %; Platelet Count 134 k/uL (150-450); Poikilocytosis Slight; RBC 4.05 m/uL (3.80-5.40); RDW 14.5 % (11.5-15.5); WBC 15.4 k/uL (3.8-10.6)
[2021-03-21 16:38] LABS: Albumin 3.8 g/dL (3.5-5.0); Calcium 9.4 mg/dL (8.4-10.2); Magnesium 2.5 mg/dL (1.6-2.3); Potassium 2.9 mmol/L (3.5-5.1); Total Bilirubin 3.6 mg/dL (0.2-1.3); Total Protein 6.3 g/dL (6.3-8.2)
[2021-03-21 16:51] LABS: Phosphorus 0.8 mg/dL (2.5-4.5)
--- NOTE | 2021-03-21 17:14 | P.CNPUL ---
History of Present Illness Consult date: 03/21/21 Requesting physician: Maranda Yeung Reason for consult: other Chief complaint: Altered mental status History of present illness: This is a 55-year-old female with known history of advanced liver cirrhosis secondary to alcohol abuse, history of hypertension, seizure disorder, asthma, history of Wernicke his encephalopathy secondary to thiamine deficiency from cirrhosis. History of chronic and recurrent pancreatitis. History of portal hypertension. Chronic thrombocytopenia secondary to liver disease. Patient was admitted yesterday to [facility] from the emergency room. Patient presented with mental status change and supposedly the last drink of alcohol she had was over a week ago. Patient felt that she may have had a seizure and according to the ER physician note, could not give any history. Looking at the notes from the admitting physician, patient was obviously confused and could not give any meaningful information. Patient was admitted and she was noted to have significant abnormal labs including hypernatremia, on iron gap metabolic acidosis with normal lactic acid, she was also noted to have liver enzymes elevated and elevated ammonia level. And slightly elevated pancreatic enzymes. Patient was admitted, placed on lactulose, and patient was not taking anything by mouth. Today the patient was reported as more confused, agitated, thrashing in bed, and her mental status seems to be worsening obviously the patient had what seemed to be worsening hepatic encephalopathy patient was intubated, admitted to the ICU, and I was asked to see her on consultation. I was called about this patient because she had no venous access and multiple attempts were made by the hospitalist to place a right femoral triple-lumen catheter, and his attempts have failed. Shortly after, I came in, evaluated the patient, discussed her condition with the , and I was able to place a right femoral triple-lumen catheter easily with 1 attempt, and no complications. Patient was noted to be hypoglycemic on the floor, and she was placed on D10 infusing at 100 MLS per hour. She has sugar checks almost every 2 hours now. I cut down her dextrose 10-50 mL per hour. Reviewed her medications that she is presently on, patient is on dextrose, Pepcid, Haldol when necessary, lactulose, rifaximin, thiamine, she received earlier Rocephin and she is on vancomycin. CBC this afternoon showed leukocytosis with WBC count of 15.4 hemoglobin is 12.9 platelets are 1 54,000 ABG on mechanical ventilation showed a pO2 of 88 pCO2 of 33 pH of 7.38 and this was on the percent FiO2 tidal volume 400 PEEP of 5 and a rate of 20. Renal profile showed BUN of 23 creatinine 1.12. Blood sugar is 146. Lactic acid is 2.8. AST is 782 ALT is 218, total bilirubin is 3.6, INR was noted to be normal. 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 Acute abnormality was noted Review of Systems ROS unobtainable: due to endotracheal tube Past Medical History Past Medical History: Asthma, CVA/TIA, Hypertension, Pneumonia, Seizure Disorder Additional Past Medical History / Comment(s): acute wernicke encephalopathy, thiamine deficiency, cirrhosis, ETOH abuse, alcohol intoxication, acute panc reatitis, portal htn, hyperbilirubinemia, thrombocytopenia. Other hx: Jaundice, abdominal distention, seizure once, UTIs, kidney stones, sinus problems. History of Any Multi-Drug Resistant Organisms: None Reported Past Surgical History: Section, Tonsillectomy Additional Past Surgical History / Comment(s): 11/26/18 EGD, egd when a 7yr old child Past Anesthesia/Blood Transfusion Reactions: No Reported Reaction Additional Past Anesthesia/Blood Transfusion Reaction / Comment(s): CLAUSTERPHOBIA Past Psychological History: Anxiety Additional Psychological History / Comment(s): Pt resides with her spouse Smoking Status: Current every day smoker Past Alcohol Use History: Unable to Obtain, Daily Past Drug Use History: None Reported, Unable to Obtain - Past Family History Father Additional Family Medical History / Comment(s): [employer]. Father is 83 yrs old. Mother Family Medical History: Coronary Artery Disease (CAD), Diabetes Mellitus, Hypertension, Pneumonia, Thyroid Disorder Additional Family Medical History / Comment(s): Mother has 3 coronary stents, gout. She is 80yrs old. Medications and Allergies Home Medications Medication Instructions Recorded Confirmed Type Cholecalciferol [Vitamin D3 (25 1,000 unit PO DAILY 06/19/14 03/20/21 History Mcg = 1000 Iu)] Lacosamide [Vimpat] 200 mg PO DAILY 07/29/18 03/20/21 History Topiramate [Topamax] 25 mg PO DAILY 07/29/18 03/20/21 History Folic Acid 0.4 mg PO DAILY 03/20/21 03/20/21 History Lactulose [Constulose] 20 gm PO BID PRN 03/20/21 03/20/21 History Melatonin 10 mg PO HS 03/20/21 03/20/21 History Methocarbamol [Robaxin-750] 750 mg PO Q6H PRN 03/20/21 03/20/21 History Pantoprazole [Protonix] 40 mg PO DAILY@1200 03/20/21 03/20/21 History Propranolol [Inderal] 10 mg PO DAILY 03/20/21 03/20/21 History Sertraline HCl [Zoloft] 200 mg PO HS 03/20/21 03/20/21 History Thera Beta 1 tab PO DAILY 03/20/21 03/20/21 History Thiamine [Vitamin B-1] 100 mg PO DAILY 03/20/21 03/20/21 History hydrOXYzine pamoate [Vistaril] 25 mg PO Q6H PRN 03/20/21 03/20/21 History levETIRAcetam [Keppra] 250 mg PO HS 03/20/21 03/20/21 History Allergies Allergy/AdvReac Type Severity Reaction Status Date / Time No Known Allergies Allergy Verified 03/20/21 21:02 Physical Exam Vitals: Vital Signs Temp Pulse Pulse Resp BP BP Pulse Ox 03/21/21 15:50 113 H 34 H 97/58 80 L 03/21/21 15:40 116 H 36 H 109/70 77 L 03/21/21 15:30 117 H 14 100/83 90 L 03/21/21 15:20 99.7 F H 112 H 34 H 100/83 91 L 03/21/21 08:00 98.1 F 64 16 116/69 92 L 03/21/21 03:00 100 18 03/21/21 02:00 100 18 100/61 93 L 03/21/21 00:48 101 H 18 111/70 95 03/20/21 20:57 99.7 F H 103 H 20 122/71 97 Intake and Output 03/21/21 03/21/21 03/21/21 06:59 14:59 22:59 Other: Voiding Method Diaper Diaper # Voids 1 # Bowel Movements 1 Weight 62.369 kg ABP, PAP, CO, CI - Last 8 Hours Arterial Blood Pressure 116/72 Arterial Blood Pressure 94/67 Physical Exam: Revealed 55-year-old female intubated, mechanically ventilated, on propofol, sedated, in no distress at present. Head: Atraumatic, normocephalic, endotracheal tube and orogastric tubes are intact. HEENT:[Neck is supple.] [No neck masses.] [No thyromegaly.] [No JVD.] Chest: Symmetrical chest expansion, fine crackles at the bases no rhonchi no wheezes. Cardiac Exam: [Normal S1 and S2, no S3 gallop, no murmur.] Abdomen: [Soft, nontender, no megaly, no rebound, no guarding, normal bowel sounds.] Extremities: [No clubbing, no edema, no cyanosis.] However multiple bruises noted all over her lower extremities and on her upper extremities, probably related to trauma or falls. Neurological Exam: is sedated, on propofol, pupils are equally reactive to light Psychiatric: Could not be assessed patient is sedated on propofol. Results - Laboratory Findings CBC and BMP: 03/21/21 16:12 03/21/21 16:12 ABG ABG pH 7.38 (7.35-7.45) 03/21/21 16:05 ABG pCO2 33 mmHg (35-45) L 03/21/21 16:05 ABG pO2 88 mmHg (83-108) 03/21/21 16:05 ABG O2 Saturation 96.9 % (94-97) 03/21/21 16:05 PT/INR, D-dimer PT 13.0 sec (9.0-12.0) H 03/20/21 21:23 INR 1.3 (<1.2) H 03/20/21 21:23 Abnormal lab findings: Abnormal Labs 03/20/21 03/20/21 03/20/21 20:57 21:23 21:23 WBC 14.8 H RBC Hct RDW Plt Count 131 L Absolute Nucleated RBC Immature Gran # Neutrophils # 12.6 H Lymphocytes # Eosinophils # NRBC/100 WBC Diff PT 13.0 H INR 1.3 H APTT 20.7 L ABG pCO2 ABG HCO3 Sodium Potassium Chloride Carbon Dioxide Anion Gap BUN Creatinine Est GFR (CKD-EPI)AfAm Est GFR (CKD-EPI)NonAf Glucose POC Glucose (mg/dL) 156 H Plasma Lactic Acid Leland Calcium Phosphorus Magnesium Total Bilirubin AST ALT Ammonia Total Protein Lipase Urine Protein Urine Glucose (UA) Urine Ketones Urine Blood Urine Mucus 03/20/21 03/20/21 03/20/21 21:23 21:23 21:23 WBC RBC Hct RDW Plt Count Absolute Nucleated RBC Immature Gran # Neutrophils # Lymphocytes # Eosinophils # NRBC/100 WBC Diff PT INR APTT ABG pCO2 ABG HCO3 Sodium 148 H Potassium Chloride 110 H Carbon Dioxide 16 L Anion Gap BUN 19 H Creatinine Est GFR (CKD-EPI)AfAm Est GFR (CKD-EPI)NonAf Glucose 128 H POC Glucose (mg/dL) Plasma Lactic Acid Leland Calcium Phosphorus Magnesium Total Bilirubin 3.0 H AST 950 H ALT 209 H Ammonia 138 H Total Protein Lipase Urine Protein 1+ H Urine Glucose (UA) 1+ H Urine Ketones 4+ H Urine Blood Large H Urine Mucus Rare H 03/20/21 03/20/21 03/21/21 22:41 23:58 05:56 WBC RBC Hct RDW Plt Count Absolute Nucleated RBC Immature Gran # Neutrophils # Lymphocytes # Eosinophils # NRBC/100 WBC Diff PT INR APTT ABG pCO2 ABG HCO3 Sodium Potassium Chloride Carbon Dioxide Anion Gap BUN Creatinine Est GFR (CKD-EPI)AfAm Est GFR (CKD-EPI)NonAf Glucose POC Glucose (mg/dL) 64 L 108 H 55 L Plasma Lactic Acid Leland Calcium Phosphorus Magnesium Total Bilirubin AST ALT Ammonia Total Protein Lipase Urine Protein Urine Glucose (UA) Urine Ketones Urine Blood Urine Mucus 03/21/21 03/21/21 03/21/21 06:22 07:06 07:06 WBC 16.58 H RBC 3.85 L Hct 36.6 L RDW 14.8 H Plt Count 113 L Absolute Nucleated RBC 0.07 H Immature Gran # 0.07 H Neutrophils # 13.96 H Lymphocytes # Eosinophils # 0 L NRBC/100 WBC Diff 0.4 H PT INR APTT ABG pCO2 ABG HCO3 Sodium 153 H Potassium Chloride 115 H Carbon Dioxide 19.6 L Anion Gap 18.40 H BUN Creatinine Est GFR (CKD-EPI)AfAm 58.9 L Est GFR (CKD-EPI)NonAf 50.8 L Glucose POC Glucose (mg/dL) 193 H Plasma Lactic Acid Leland Calcium 8.6 L Phosphorus Magnesium Total Bilirubin 2.3 H AST 748 H ALT 244 H Ammonia Total Protein 5.8 L Lipase 69 H Urine Protein Urine Glucose (UA) Urine Ketones Urine Blood Urine Mucus 03/21/21 03/21/21 03/21/21 07:06 10:03 10:24 WBC RBC Hct RDW Plt Count Absolute Nucleated RBC Immature Gran # Neutrophils # Lymphocytes # Eosinophils # NRBC/100 WBC Diff PT INR APTT ABG pCO2 ABG HCO3 Sodium Potassium Chloride Carbon Dioxide Anion Gap BUN Creatinine Est GFR (CKD-EPI)AfAm Est GFR (CKD-EPI)NonAf Glucose POC Glucose (mg/dL) 61 L 57 L Plasma Lactic Acid Leland Calcium Phosphorus Magnesium Total Bilirubin AST ALT Ammonia 138 H Total Protein Lipase Urine Protein Urine Glucose (UA) Urine Ketones Urine Blood Urine Mucus 03/21/21 03/21/21 03/21/21 10:54 11:20 11:46 WBC RBC Hct RDW Plt Count Absolute Nucleated RBC Immature Gran # Neutrophils # Lymphocytes # Eosinophils # NRBC/100 WBC Diff PT INR APTT ABG pCO2 ABG HCO3 Sodium Potassium Chloride Carbon Dioxide Anion Gap BUN Creatinine Est GFR (CKD-EPI)AfAm Est GFR (CKD-EPI)NonAf Glucose POC Glucose (mg/dL) 64 L 56 L 50 L Plasma Lactic Acid Leland Calcium Phosphorus Magnesium Total Bilirubin AST ALT Ammonia Total Protein Lipase Urine Protein Urine Glucose (UA) Urine Ketones Urine Blood Urine Mucus 03/21/21 03/21/21 03/21/21 12:27 14:53 15:20 WBC RBC Hct RDW Plt Count Absolute Nucleated RBC Immature Gran # Neutrophils # Lymphocytes # Eosinophils # NRBC/100 WBC Diff PT INR APTT ABG pCO2 ABG HCO3 Sodium Potassium Chloride Carbon Dioxide Anion Gap BUN Creatinine Est GFR (CKD-EPI)AfAm Est GFR (CKD-EPI)NonAf Glucose POC Glucose (mg/dL) 57 L 40 L 35 L Plasma Lactic Acid [place]eland Calcium Phosphorus Magnesium Total Bilirubin AST ALT Ammonia Total Protein Lipase Urine Protein Urine Glucose (UA) Urine Ketones Urine Blood Urine Mucus 03/21/21 03/21/21 03/21/21 16:05 16:11 16:12 WBC 15.4 H RBC Hct RDW Plt Count 134 L Absolute Nucleated RBC Immature Gran # Neutrophils # 14.0 H Lymphocytes # 0.6 L Eosinophils # NRBC/100 WBC Diff PT INR APTT ABG pCO2 33 L ABG HCO3 20 L Sodium Potassium Chloride Carbon Dioxide Anion Gap BUN Creatinine Est GFR (CKD-EPI)AfAm Est GFR (CKD-EPI)NonAf Glucose POC Glucose (mg/dL) 146 H Plasma Lactic Acid Leland Calcium Phosphorus Magnesium Total Bilirubin AST ALT Ammonia Total Protein Lipase Urine Protein Urine Glucose (UA) Urine Ketones Urine Blood Urine Mucus 03/21/21 03/21/21 16:12 16:12 WBC RBC Hct RDW Plt Count Absolute Nucleated RBC Immature Gran # Neutrophils # Lymphocytes # Eosinophils # NRBC/100 WBC Diff PT INR APTT ABG pCO2 ABG HCO3 Sodium 160 H Potassium 2.9 L Chloride 124 H Carbon Dioxide 19 L Anion Gap BUN 23 H Creatinine 1.12 H Est GFR (CKD-EPI)AfAm Est GFR (CKD-EPI)NonAf Glucose 157 H POC Glucose (mg/dL) Plasma Lactic Acid Leland 2.8 H* Calcium Phosphorus 0.8 L* Magnesium 2.5 H Total Bilirubin 3.6 H AST 782 H ALT 218 H Ammonia Total Protein Lipase Urine Protein Urine Glucose (UA) Urine Ketones Urine Blood Urine Mucus - Diagnostic Findings Chest x-ray: image reviewed (2 chest x-rays were reviewed, one showed the endotracheal tube in the right mainstem bronchus with complete collapse of the left lung shortly after another x-ray was done after the tube was pulled out showed adequate placement of the endotracheal tube, and improved aeration of the left lung.) Assessment and Plan Assessment: Impression: Acute hypoxic respiratory failure secondary to acute hepatic encephalopathy Acute hepatic encephalopathy secondary to history of liver cirrhosis related to alcoholism. History of seizure disorder. Hypoglycemia secondary to underlying liver disease and intake as well as acute on chronic pancreatitis Mild thrombocytopenia secondary to liver disease Hypernatremia secondary to free water deficit Elevated liver enzymes secondary to liver cirrhosis Elevated ammonia level secondary to liver cirrhosis and portal hypertension. Multiple areas of purpura involving the skin likely related to underlying liver disease and trauma. Recommendation: Continue ventilatory support. Continue D10 W at this point. And continue to monitor sugars. Continue Protonix. GI prophylaxis, however avoid heparin because of low p latelets Continue lactulose and rifaximin Continue to monitor ammonia level closely Continue to monitor liver enzymes and electrolytes. Free water flushes to correct the hypernatremia Consider starting the nutritional support in the next 24 hours. Discussed her condition with family at bedside. Prognosis is extremely poor and guarded. We'll continue to follow while in the ICU. Time with Patient: Greater than 30
[2021-03-21 17:24] LABS: Appearance,Urine Clear (Clear); Bacteria,Urine Rare /hpf; Bilirubin,Urine Negative (Negative); Blood,Urine Large (Negative); Color,Urine Yellow; Glucose,Urine (UA) Negative (Negative); Granular Casts,Urine 11 /lpf (0); Hyaline Casts,Urine 4 /lpf (0-2); Ketones,Urine 2+ (Negative); Leukocyte Esterase,Urine Negative (Negative); Mucus,Urine Rare /hpf; Nitrite,Urine Negative (Negative); Protein,Urine 1+ (Negative); RBC,Urine 1 /hpf (0-5); Specific Gravity,Urine 1.022 (1.001-1.035); Squamous Epithelial Cell,Urine <1 /hpf (0-4); WBC,Urine 10 /hpf (0-5)
[2021-03-21 17:56] LABS: Glucose,Whole Blood 198 mg/dL (75-99)
[2021-03-21] MEDS ORDERED: Phosphorus Replacement Protoco 1 EACH MISC MISCELLANE PRN (19:00)
[2021-03-21] MEDS ORDERED: Potassium Replacement Protocol 1 EACH MISC MISCELLANE PRN (19:02)
[2021-03-21] MEDS: POTASSIUM PHOSPHATE 10 MMOL in SODIUM CHLORIDE 0.9% 100 ML IV SCH ×2 (19:59→22:18)
[2021-03-21] MEDS: DEXTROSE 5% IN WATER 1,000 ML IV SCH (19:59)
[2021-03-21] MEDS: POTASSIUM BICARBONATE/CIT AC 20 MEQ TABLET.EFF NG-TUBE SCH ×2 (20:10→23:14)
[2021-03-21 20:14] LABS: ABG Base Excess -3.6 mmol/L; ABG HCO3 21 mmol/L (21-25); ABG Oxygen Saturation 99.7 % (94-97); ABG PCO2 34 mmHg (35-45); ABG PH 7.41 (7.35-7.45); ABG PO2 197 mmHg (83-108); ABG TCO2 22 mmol/L (19-24); Allen Test Performed? Yes
[2021-03-21 20:26] LABS: Glucose,Whole Blood 207 mg/dL (75-99)
[2021-03-21] MEDS ORDERED: levETIRAcetam IV 1,500 MG in SALINE 1 100ML.BAG IVPB STA (20:59)
[2021-03-21] MEDS ORDERED: levETIRAcetam 250 MG TAB PO SCH (21:00)
[2021-03-21] MEDS ORDERED: RX INFO: IV CONTRAST WAS GIVEN 1 EACH MISC MISCELLANE PRN (21:10)
[2021-03-21] MEDS ORDERED: THIAMINE 100 MG in SODIUM CHLORIDE 0.9% 50 ML IVPB SCH (21:30)
[2021-03-21 22:23] LABS: Glucose,Whole Blood 243 mg/dL (75-99)
[2021-03-21] MEDS: LORazepam 2 MG/ML INJ IV PRN (22:52)
[2021-03-21] MEDS: CHLORHEXIDINE GLUCONATE 15 ML CUP MUCOUS MEM SCH (23:13)
[2021-03-21] MEDS: PANTOPRAZOLE 40 MG/10 ML VIAL IVP SCH (23:13)
[2021-03-21 23:33] LABS: Albumin 4.3 g/dL (3.80-4.90); Albumin/Globulin Ratio 1.79 (1.60-3.17); Anion Gap 20.7 mmol/L (4.00-12.00); BUN/Creat Ratio 17.14 Ratio (12.00-20.00); Calcium 9.3 mg/dL (8.7-10.3); Carbon Dioxide 23.3 mmol/L (21.6-31.8); Globulin 2.4 g/dL (1.6-3.3); Non-African American GFR(CKD) 42.2 (60.0-200.0); Potassium 4.2 mmol/L (3.5-5.5); Total Bilirubin 3.6 mg/dL (0.3-1.2); Total Protein 6.7 g/dL (6.2-8.2)
[2021-03-21 23:38] LABS: African American GFR (CKD) 48.9 (60.0-200.0)
[2021-03-22] MEDS ORDERED: VANCOMYCIN 1,250 MG in SODIUM CHLORIDE 0.9% 250 ML IVPB SCH ×2
[2021-03-22 00:48] LABS: Glucose,Whole Blood 214 mg/dL (75-99)
[2021-03-22] MEDS: LACTULOSE 200 GM/300 ML (FROM 1/2 GAL JUG) RECTAL SCH ×4 (00:54→10:55)
[2021-03-22] MEDS: POTASSIUM BICARBONATE/CIT AC 20 MEQ TABLET.EFF NG-TUBE SCH ×3 (00:59→10:39)
[2021-03-22] MEDS: POTASSIUM PHOSPHATE 10 MMOL in SODIUM CHLORIDE 0.9% 100 ML IV SCH (00:59)
[2021-03-22] MEDS: LORazepam 2 MG/ML INJ IV PRN ×2 (01:25→10:33)
[2021-03-22 02:45] LABS: Glucose,Whole Blood 201 mg/dL (75-99)
--- NOTE | 2021-03-22 02:45 | CT ---
EXAM: CT Head Without Intravenous Contrast CLINICAL HISTORY: ITS.REASON CT Reason: seizures TECHNIQUE: Axial computed tomography images of the head/brain without intravenous contrast. CTDI is 22.02 mGy and DLP is 517.8 mGy-cm. This CT exam was performed using one or more of the following dose reduction techniques: automated exposure control, adjustment of the mA and/or kV according to patient size, and/or use of iterative reconstruction technique. COMPARISON: CT 03/20/21. FINDINGS: Trace subarachnoid hemorrhage again noted. Patchy areas of low- attenuation, nonspecific. Subtle developing infarct cannot be completely excluded. No significant mass effect or midline shift. The ventricular system is stable. Additional findings similar to prior. IMPRESSION: No significant interval change. Consider MRI if there is persistent concern.
--- NOTE | 2021-03-22 02:58 | CT ---
EXAM: CT Angiography Head With Intravenous Contrast CLINICAL HISTORY: ITS.REASON CT Reason: seizures TECHNIQUE: Axial computed tomographic angiography images of the head with intravenous contrast. CTDI is 22.02 mGy and DLP is 517.8 mGy-cm. This CT exam was performed using one or more of the following dose reduction techniques: automated exposure control, adjustment of the mA and/or kV according to patient size, and/or use of iterative reconstruction technique. MIP reconstructed images were created and reviewed. COMPARISON: [facility] 07/29/18. FINDINGS: Artifacts: Motion artifact. Right internal carotid artery: No occlusion. Right anterior cerebral artery: No occlusion. Right middle cerebral artery: No occlusion. Right posterior cerebral artery: No occlusion. Right vertebral artery: No occlusion. Left internal carotid artery: No occlusion. Left anterior cerebral artery: No occlusion. Left middle cerebral artery: No occlusion. Left posterior cerebral artery: No occlusion. Left vertebral artery: No occlusion. Basilar artery: No occlusion. Other: Persistent nodular enhancing structure at the right parietal region, slightly irregular in appearance versus motion artifact. IMPRESSION: 1. No large vessel occlusion. 2. Irregular nodular enhancing structure at the right parietal region. Differential considerations include aneurysm with possible rupture, vascular malformation, or mass. MRI may be considered if indicated. EXAM: CT Angiography Neck With Intravenous Contrast CLINICAL HISTORY: ITS.REASON CT Reason: seizures TECHNIQUE: Axial computed tomographic angiography images of the neck with intravenous contrast. CTDI is 22.02 mGy and DLP is 517.8 mGy-cm. This CT exam was performed using one or more of the following dose reduction techniques: automated exposure control, adjustment of the mA and/or kV according to patient size, and/or use of iterative reconstruction technique. MIP reconstructed images were created and reviewed. COMPARISON: [facility] 07/29/18. FINDINGS: VASCULATURE: Right common carotid artery: No significant stenosis. No occlusion. Right internal carotid artery: No significant stenosis. No occlusion. Right external carotid artery: No occlusion. Right vertebral artery: No occlusion. Left common carotid artery: No significant stenosis. No occlusion. Left internal carotid artery: No significant stenosis. No occlusion. Left external carotid artery: No occlusion. Left vertebral artery: No occlusion. NECK: Thyroid: Heterogeneous thyroid, probable left nodule. Lung apices: Bilateral groundglass infiltrates and incompletely visualized left lower lung consolidation. Tubes, lines and devices: Endotracheal tube terminates at the robert. Consider retraction. Feeding tube extends below the field of view. CAROTID STENOSIS REFERENCE USING NASCET CRITERIA: % ICA stenosis = (1 - narrowest ICA diameter/diameter of distal cervical ICA) x 100. Mild - <50% stenosis. Moderate - 50-69% stenosis. Severe - 70-94% stenosis. Near occlusion - 95-99% stenosis. Occluded - 100% stenosis. IMPRESSION: 1. No high-grade stenosis or occlusion. 2. Additional findings, as above. <MYCVCSECTION> Communications: 03/22/21 03:14 Verify Receipt Verified receipt with ICU Nurse Reji on 03/22 03:14 (-04:00)
[2021-03-22 05:10] LABS: Glucose,Whole Blood 181 mg/dL (75-99)
[2021-03-22 05:18] LABS: ABG Base Excess 3.8 mmol/L; ABG HCO3 27 mmol/L (21-25); ABG Oxygen Saturation 98.5 % (94-97); ABG PCO2 32 mmHg (35-45); ABG PH 7.52 (7.35-7.45); ABG PO2 95 mmHg (83-108); ABG TCO2 28 mmol/L (19-24); Allen Test Performed? Yes
[2021-03-22 06:02] LABS: Calcium 8.4 mg/dL (8.4-10.2); Magnesium 2.2 mg/dL (1.6-2.3); Potassium 3.1 mmol/L (3.5-5.1); Total Bilirubin 2.9 mg/dL (0.2-1.3); Total Protein 5.4 g/dL (6.3-8.2)
[2021-03-22 06:06] LABS: Basophils % (A) 0 %; Eosinophils % (A) 0 %; HCT 34.4 % (34.0-46.0); Hyperchromasia Slight; Lymphocytes # (A) 2.1 k/uL (1.0-4.8); Lymphocytes % (A) 18 %; MCH 31.8 pg (25.0-35.0); MCHC 34.9 g/dL (31.0-37.0); MCV 91.2 fL (80.0-100.0); Mean Platelet Volume 7.3; Monocytes # (A) 0.5 k/uL (0-1.0); Monocytes % (A) 4 %; Neutrophils % (A) 76 %; Poikilocytosis Slight; RBC 3.77 m/uL (3.80-5.40); RDW 15.1 % (11.5-15.5); WBC 11.8 k/uL (3.8-10.6)
[2021-03-22 06:45] LABS: Glucose,Whole Blood 189 mg/dL (75-99)
[2021-03-22 06:59] LABS: Anisocytosis (M) Present; Basophilic Stippling Present; Polychromasia Present
[2021-03-22 07:02] LABS: Platelet Count 82 k/uL (150-450)
[2021-03-22 07:04] LABS: Poikilocytosis (M) Present
--- NOTE | 2021-03-22 07:14 | XR ---
EXAMINATION TYPE: XR chest 1V portable DATE OF EXAM: 03/22/2021 COMPARISON: 03/21/2021 HISTORY: Shortness of breath TECHNIQUE: Single frontal view of the chest is obtained. FINDINGS: ET and NG tube stable. There is bilateral lower lobe infiltrate greater on the left tiny e ffusion. Size stable size of the thorax. Interstitium unchanged. IMPRESSION: Stable basilar infiltrate greater on the left correlate for underlying pneumonia.
[2021-03-22 07:41] VITALS: RESP 20
[2021-03-22] MEDS: RIFAXIMIN 550 MG TABLET PO SCH ×2 (07:45→10:42)
--- NOTE | 2021-03-22 08:23 | OP ---
OPERATIVE REPORT OPERATIVE REPORT: Placement of the right femoral triple-lumen catheter. PREOPERATIVE DIAGNOSIS: Acute hepatic encephalopathy and hypoxic respiratory failure. POSTOPERATIVE DIAGNOSIS: Acute hepatic encephalopathy and hypoxic respiratory failure. ANESTHESIA USED: 2 mL of 1% lidocaine. PROCEDURE: The patient was placed in the supine position. The groin was noted to be red from previous attempts by the hospitalist physician to place a right femoral line. The right groin was prepared in a sterile fashion and drapes were applied. The area was locally anesthetized. Then the right femoral vein was easily cannulated with one trial only, entered this the femoral vein. A guidewire was placed. The area of the guidewire was dilated. A triple lumen catheter was inserted over the guidewire, and the guidewire was removed. Good blood flow noted in the three different ports of the triple-lumen catheter. Line was secured using 3.0 silk sutures. No evidence of any complications. MMODL / IJN: [id number] /
[2021-03-22] MEDS ORDERED: SODIUM CHLORIDE 0.9% 1,000 ML IV ONE (09:00)
[2021-03-22] MEDS ORDERED: levETIRAcetam IV 1,000 MG in SALINE 1 100ML.BAG IVPB SCH (09:00)
[2021-03-22] MEDS ORDERED: LACOSAMIDE IV 100 MG in SODIUM CHLORIDE 0.9% 50 ML IVPB SCH (09:00)
--- NOTE | 2021-03-22 09:19 | P.CNNES ---
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 History is obtained from medical record since patient unable to provide the history. Neurology is consulted for posturing and hypernatremia. I spoke with the patient's nurse who had her in the AM yesterday and she notified me that she was having extensor posturing. Per medical record is seems that the patient last drink of alcohol was over a week ago and felt that she had a seizure according to the ED physician's in which she notified the ED that she possibly had a seizure but could not provide more information. Of note patient had multiple electrolyte imbalance, hypoglycemia, worsening of the hepatic encephalopathy during this hospital stay. Patient was intubated placed on the vent and was admitted to ICU. Patient as a result was getting lactulose and Rifaximin. And was started on Vancomycin. Some of the patient's home medication is Keppra 25 mg daily at bedtime, Topamax 25 daily, thiamine, Vimpat 200 mg daily, Zoloft, Robaxin, propranolol, lactulose, folic acid. I am not sure patient seizure history (semiology, age of onset and how frequent) and not sure who is managing her seizure's and if she is following-up with a neurologist or not. Some of the workup in the hospital consisted of: Initial vital signs: His blood pressure of 122/71, heart rate of 103, temperature of 99.7 Fahrenheit, respiratory of 20, pulse ox of 97% at room air then went down to 89% on 2 L of nasal cannula. Patient the temperature got high as 100.5 which is considered low grade fever and the last one is 99.[address] of the head is reported as old infarct with encephalomalacia over the left posterior frontal lobe. No acute intracranial abnormality. On presentation she had a white blood cell 14.8 with a platelet of 131 and a got down as low as 82,000. She presented with a sodium of 148 and a got as high as 163 in the last sodium is 146. Her initial serum glucose was 156 but then the repeated within close to 2 hours was 64 and then she had an episode of glucose of 55 and then next day her glucose level serum was in the 30s to 40s and currently it's in the 180s. Creatinine on presentation is 0.88 and a got high as 1.12 then resolved. AST on presentation is not her 50 and then last is 590. While ALT on presentation was 209 in the last ALT is 192. While ammonia level on presentation was 138 which is elevated and the last one is 27. Lipase was slightly elevated and was 69 Coagulation study: PT of 13.0, INR is 1.3 and PTT of 20.7. Magnesium is 0.8 which is low. Phosphorus is 2.5 which is slightly elevated in the repeated 2.2 which is normal. Blood cultures preliminarily is gram-positive cocci in pairs and chains I was perfect served late last night about the patient and was notified by the nurse that she is posturing. I notified the nurse to obtain CT, CTA of head and neck. To give Keppra 1500 mg once loading and to increased the Keppra 500 mg every 12 hours to 1000 mg every 12 hours. To give her 4mg STAT ATivan. To start the patient on Thiamin IV 100mg daily. And to call me if CTA of head and neck are abnormal. But was not called or perfect served overnight. Upon coming to the hospital in the AM nurse was notified the CT and CTA head and neck that were signed off to her were reported as normal. I looked at the reports and it is reported as: Repeat CT of the head is reported as no significant interval change. Consider MRI of there is persistent concern. CT angiography of the head was reported as no large vessel occlusion. Irregular nodular enhancing structure at the right parietal region. Differential considerations include aneurysm with possible rupture, vascular malformation or mass effect. MRI may be considered if indicated. CT angiography of the neck was reported as no significant weight stenosis or occlusion. Review of Systems Review of system is limited but the per positive and negative as per HPI Past Medical History Past Medical History: Asthma, CVA/TIA, Hypertension, Pneumonia, Seizure Disorder Additional Past Medical History / Comment(s): acute wernicke encephalopathy, thiamine deficiency, cirrhosis, ETOH abuse, alcohol intoxication, acute p ancreatitis, portal htn, hyperbilirubinemia, thrombocytopenia. Other hx: Jaundice, abdominal distention, seizure once, UTIs, kidney stones, sinus problems. History of Any Multi-Drug Resistant Organisms: None Reported Past Surgical History: Section, Tonsillectomy Additional Past Surgical History / Comment(s): 11/26/18 EGD, egd when a 7yr old child Past Anesthesia/Blood Transfusion Reactions: No Reported Reaction Additional Past Anesthesia/Blood Transfusion Reaction / Comment(s): CLAUSTERPHOBIA Past Psychological History: Anxiety Additional Psychological History / Comment(s): Pt resides with her spouse Smoking Status: Current every day smoker Past Alcohol Use History: Unable to Obtain, Daily Past Drug Use History: None Reported, Unable to Obtain - Past Family History Father Additional Family Medical History / Comment(s): [employer]. Father is 83 yrs old. Mother Family Medical History: Coronary Artery Disease (CAD), Diabetes Mellitus, Hypertension, Pneumonia, Thyroid Disorder Additional Family Medical History / Comment(s): Mother has 3 coronary stents, gout. She is 80yrs old. Medications and Allergies Home Medications Medication Instructions Recorded Confirmed Type Cholecalciferol [Vitamin D3 (25 1,000 unit PO DAILY 06/19/14 03/20/21 History Mcg = 1000 Iu)] Lacosamide [Vimpat] 200 mg PO DAILY 07/29/18 03/20/21 History Topiramate [Topamax] 25 mg PO DAILY 07/29/18 03/20/21 History Folic Acid 0.4 mg PO DAILY 03/20/21 03/20/21 History Lactulose [Constulose] 20 gm PO BID PRN 03/20/21 03/20/21 History Melatonin 10 mg PO HS 03/20/21 03/20/21 History Methocarbamol [Robaxin-750] 750 mg PO Q6H PRN 03/20/21 03/20/21 History Pantoprazole [Protonix] 40 mg PO DAILY@1200 03/20/21 03/20/21 History Propranolol [Inderal] 10 mg PO DAILY 03/20/21 03/20/21 History Sertraline HCl [Zoloft] 200 mg PO HS 03/20/21 03/20/21 History Thera Beta 1 tab PO DAILY 03/20/21 03/20/21 History Thiamine [Vitamin B-1] 100 mg PO DAILY 03/20/21 03/20/21 History hydrOXYzine pamoate [Vistaril] 25 mg PO Q6H PRN 03/20/21 03/20/21 History levETIRAcetam [Keppra] 250 mg PO HS 03/20/21 03/20/21 History Allergies Allergy/AdvReac Type Severity Reaction Status Date / Time No Known Allergies Allergy Verified 03/20/21 21:02 Physical Examination - Vital Signs Vital Signs: Vital Signs Temp Pulse Pulse Resp BP BP Pulse Ox 03/22/21 06:00 92 21 88/65 99 03/22/21 05:30 92 88/65 99 03/22/21 05:00 98 27 H 95 03/22/21 04:30 92 26 H 88/65 95 03/22/21 04:00 99.2 F 89 20 94 L 03/22/21 03:30 88 25 H 95/70 95 03/22/21 03:00 86 20 97 03/22/21 02:32 89 20 95/70 98 03/22/21 02:00 94 20 94 L 03/22/21 01:30 93 21 95/70 98 03/22/21 01:00 96 24 97 03/22/21 00:30 92 20 89/59 97 03/22/21 00:00 98.0 F 94 21 97 03/21/21 23:30 96 21 96/61 96 03/21/21 23:00 96 22 96 03/21/21 22:30 97 20 91/63 98 03/21/21 22:00 99 21 98 03/21/21 21:30 101 H 22 90/61 98 03/21/21 21:00 104 H 23 99 03/21/21 20:30 105 H 24 95 03/21/21 20:00 105 H 23 98 03/21/21 19:30 102 H 21 98 03/21/21 19:00 102 H 22 94/67 97 03/21/21 18:30 101 H 20 115/78 98 03/21/21 18:00 99.9 F H 107 H 27 H 110/80 93 L 03/21/21 17:30 104 H 23 110/80 96 03/21/21 17:00 107 H 26 H 109/81 92 L 03/21/21 16:30 109 H 30 H 109/81 95 03/21/21 16:00 100.5 F H 109 H 29 H 110/73 95 03/21/21 15:50 113 H 34 H 97/58 80 L 03/21/21 15:40 116 H 36 H 109/70 77 L 03/21/21 15:30 117 H 14 100/83 90 L 03/21/21 15:20 99.7 F H 112 H 34 H 100/83 91 L 03/21/21 08:00 98.1 F 64 16 116/69 92 L Intake and Output 03/21/21 03/22/21 03/22/21 22:59 06:59 14:59 Intake Total 925 2900 Output Total 360 290 Balance 565 2610 Intake: IV 925 1900 Dextrose 10% in Water 1, 350 000 ml @ 100 mls/hr IV . Q10H TIM Rx#:[id number] Dextrose 5% in Water 1, 425 1350 000 ml @ 150 mls/hr IV . Q6H40M TIM Rx#:[id number] Potassium Phosphate 10 150 150 mmol In Sodium Chloride 0 .9% 100 ml @ 50 mls/hr IV Q2H TIM Rx#:[id number] Thiamine 100 mg In Sodium 50 Chloride 0.9% 50 ml @ 100 mls/hr IVPB DAILY@ 2100 TIM Rx#:[id number] Vancomycin 1,250 mg In 250 Sodium Chloride 0.9% 250 ml @ 125 mls/hr IVPB Q12H TIM Rx#:[id number] levETIRAcetam IV 1,500 mg 100 In Saline 1 100ml.bag @ 400 mls/hr IVPB ONCE [facility] Rx#:[id number] Intake, IV Titration 100 Amount propofoL 1,000 mg In 100 Empty Bag 1 bag @ Titrate IV .Q0M TIM Rx#: [id number] Other 900 Output: Urine 360 290 Other: Weight 64.9 kg ABP, PAP, CO, CI - Last 8 Hours Arterial Blood Pressure 85/46 Arterial Blood Pressure 101/56 Arterial Blood Pressure 100/53 Arterial Blood Pressure 76/60 Arterial Blood Pressure 97/53 Arterial Blood Pressure 85/48 Arterial Blood Pressure 87/51 Arterial Blood Pressure 91/53 Arterial Blood Pressure 94/54 Arterial Blood Pressure 106/60 Arterial Blood Pressure 90/52 Arterial Blood Pressure 89/52 Arterial Blood Pressure 107/61 GENERAL: The patient is lying in bed and does not seem in acute distress. HENT: Supple neck. Negative Brudzinski and Kernig sign. CHEST: The heart rate is regular rate rhythm. No murmurs to auscultation. No carotid bruit bilaterally. LUNG: Clear to auscultation bilaterally no wheezing noted throughout. Not labored breathing. she is intubated on Ventilator and breathing over the vent (set at 20 and breathing at 22). ABDOMEN/GI: Bowel sounds present in all 4 quadrants. No tenderness to palpation throughout. HENT: Multiple areas purpura ecchymosis NEUROLOGICAL: Limited. Is on Propofol 30mcg/kg/min. Higher mental function: GCS 7 (E1, VT1, M5). The patient is comatose. She is not following commands. Cranial nerves: Had to manually open the eyes and has fixed downward gaze deviation. The pupils are round, equal (5mm) and reactive to light. +ve corneal reflex bilaterally. No facial weakness noted. Negative occulocephalic reflex. Is breathing over the vent. Rest of the cranial nerves is limited because of condition. Motor: The strength is withdrawing to bilateral lower extremities to painful stimuli. With painful stimuli of upper it seems she has extensor posturing bilaterally and withdrawl to lower extremities. Normal tone and bulk. No spontaneous movement. Cerebellum: Could not assess. Sensation:Could not assess light touch but to painful stimuli she withdrawals to pain. Reflexes (right/left): 2+ throughout except patellars are 3+ bilaterally. Plantars are upgoing bilaterally. Results Calcium last is 8.4 which is normal. Potassium on initial presentation 4.2 and during hospital stay it got as low as 2.9. Urine drug screen is nondetected in the serum alcohol was less than 10. Blood cultures Robles virus is nondetected Urinalysis is negative for urinary tract infection - Laboratory Findings CBC and BMP: 03/22/21 05:00 03/22/21 09:31 Abnormal Lab Findings: Abnormal Labs 03/20/21 03/20/21 03/20/21 20:57 21:23 21:23 WBC 14.8 H RBC Hct RDW Plt Count 131 L Absolute Nucleated RBC Immature Gran # Neutrophils # 12.6 H Lymphocytes # Eosinophils # NRBC/100 WBC Diff PT 13.0 H INR 1.3 H APTT 20.7 L ABG pH ABG pCO2 ABG pO2 ABG HCO3 ABG Total CO2 ABG O2 Saturation Sodium Potassium Chloride Carbon Dioxide Anion Gap BUN Creatinine Est GFR (CKD-EPI)AfAm Est GFR (CKD-EPI)NonAf Glucose POC Glucose (mg/dL) 156 H Plasma Lactic Acid Leland Calcium Phosphorus Magnesium Total Bilirubin AST ALT Ammonia Total Protein Albumin Lipase Urine Protein Urine Glucose (UA) Urine Ketones Urine Blood Urine WBC Urine Bacteria Hyaline Casts Urine Mucus 03/20/21 03/20/21 03/20/21 21:23 21:23 21:23 WBC RBC Hct RDW Plt Count Absolute Nucleated RBC Immature Gran # Neutrophils # Lymphocytes # Eosinophils # NRBC/100 WBC Diff PT INR APTT ABG pH ABG pCO2 ABG pO2 ABG HCO3 ABG Total CO2 ABG O2 Saturation Sodium 148 H Potassium Chloride 110 H Carbon Dioxide 16 L Anion Gap BUN 19 H Creatinine Est GFR (CKD-EPI)AfAm Est GFR (CKD-EPI)NonAf Glucose 128 H POC Glucose (mg/dL) Plasma Lactic Acid Leland Calcium Phosphorus Magnesium Total Bilirubin 3.0 H AST 950 H ALT 209 H Ammonia 138 H Total Protein Albumin Lipase Urine Protein 1+ H Urine Glucose (UA) 1+ H Urine Ketones 4+ H Urine Blood Large H Urine WBC Urine Bacteria Hyaline Casts Urine Mucus Rare H 03/20/21 03/20/21 03/21/21 22:41 23:58 05:56 WBC RBC Hct RDW Plt Count Absolute Nucleated RBC Immature Gran # Neutrophils # Lymphocytes # Eosinophils # NRBC/100 WBC Diff PT INR APTT ABG pH ABG pCO2 ABG pO2 ABG HCO3 ABG Total CO2 ABG O2 Saturation Sodium Potassium Chloride Carbon Dioxide Anion Gap BUN Creatinine Est GFR (CKD-EPI)AfAm Est GFR (CKD-EPI)NonAf Glucose POC Glucose (mg/dL) 64 L 108 H 55 L Plasma Lactic Acid [place]eland Calcium Phosphorus Magnesium Total Bilirubin AST ALT Ammonia Total Protein Albumin Lipase Urine Protein Urine Glucose (UA) Urine Ketones Urine Blood Urine WBC Urine Bacteria Hyaline Casts Urine Mucus 03/21/21 03/21/21 03/21/21 06:22 07:06 07:06 WBC 16.58 H RBC 3.85 L Hct 36.6 L RDW 14.8 H Plt Count 113 L Absolute Nucleated RBC 0.07 H Immature Gran # 0.07 H Neutrophils # 13.96 H Lymphocytes # Eosinophils # 0 L NRBC/100 WBC Diff 0.4 H PT INR APTT ABG pH ABG pCO2 ABG pO2 ABG HCO3 ABG Total CO2 ABG O2 Saturation Sodium 153 H Potassium Chloride 115 H Carbon Dioxide 19.6 L Anion Gap 18.40 H BUN Creatinine Est GFR (CKD-EPI)AfAm 58.9 L Est GFR (CKD-EPI)NonAf 50.8 L Glucose POC Glucose (mg/dL) 193 H Plasma Lactic Acid Leland Calcium 8.6 L Phosphorus Magnesium Total Bilirubin 2.3 H AST 748 H ALT 244 H Ammonia Total Protein 5.8 L Albumin Lipase 69 H Urine Protein Urine Glucose (UA) Urine Ketones Urine Blood Urine WBC Urine Bacteria Hyaline Casts Urine Mucus 03/21/21 03/21/21 03/21/21 07:06 10:03 10:24 WBC RBC Hct RDW Plt Count Absolute Nucleated RBC Immature Gran # Neutrophils # Lymphocytes # Eosinophils # NRBC/100 WBC Diff PT INR APTT ABG pH ABG pCO2 ABG pO2 ABG HCO3 ABG Total CO2 ABG O2 Saturation Sodium Potassium Chloride Carbon Dioxide Anion Gap BUN Creatinine Est GFR (CKD-EPI)AfAm Est GFR (CKD-EPI)NonAf Glucose POC Glucose (mg/dL) 61 L 57 L Plasma Lactic Acid Leland Calcium Phosphorus Magnesium Total Bilirubin AST ALT Ammonia 138 H Total Protein Albumin Lipase Urine Protein Urine Glucose (UA) Urine Ketones Urine Blood Urine WBC Urine Bacteria Hyaline Casts Urine Mucus 03/21/21 03/21/21 03/21/21 10:54 11:20 11:46 WBC RBC Hct RDW Plt Count Absolute Nucleated RBC Immature Gran # Neutrophils # Lymphocytes # Eosinophils # NRBC/100 WBC Diff PT INR APTT ABG pH ABG pCO2 ABG pO2 ABG HCO3 ABG Total CO2 ABG O2 Saturation Sodium Potassium Chloride Carbon Dioxide Anion Gap BUN Creatinine Est GFR (CKD-EPI)AfAm Est GFR (CKD-EPI)NonAf Glucose POC Glucose (mg/dL) 64 L 56 L 50 L Plasma Lactic Acid Leland Calcium Phosphorus Magnesium Total Bilirubin AST ALT Ammonia Total Protein Albumin Lipase Urine Protein Urine Glucose (UA) Urine Ketones Urine Blood Urine WBC Urine Bacteria Hyaline Casts Urine Mucus 03/21/21 03/21/21 03/21/21 12:27 14:15 14:53 WBC RBC Hct RDW Plt Count Absolute Nucleated RBC Immature Gran # Neutrophils # Lymphocytes # Eosinophils # NRBC/100 WBC Diff PT INR APTT ABG pH ABG pCO2 ABG pO2 ABG HCO3 ABG Total CO2 ABG O2 Saturation Sodium 163 H* Potassium Chloride 119 H Carbon Dioxide Anion Gap 20.70 H BUN Creatinine Est GFR (CKD-EPI)AfAm 48.9 L Est GFR (CKD-EPI)NonAf 42.2 L Glucose 40 L* POC Glucose (mg/dL) 57 L 40 L Plasma Lactic Acid Leland Calcium Phosphorus Magnesium Total Bilirubin 3.6 H AST 829 H ALT 288 H Ammonia Total Protein Albumin Lipase Urine Protein Urine Glucose (UA) Urine Ketones Urine Blood Urine WBC Urine Bacteria Hyaline Casts Urine Mucus 03/21/21 03/21/21 03/21/21 15:20 16:05 16:10 WBC RBC Hct RDW Plt Count Absolute Nucleated RBC Immature Gran # Neutrophils # Lymphocytes # Eosinophils # NRBC/100 WBC Diff PT INR APTT ABG pH ABG pCO2 33 L ABG pO2 ABG HCO3 20 L ABG Total CO2 ABG O2 Saturation Sodium Potassium Chloride Carbon Dioxide Anion Gap BUN Creatinine Est GFR (CKD-EPI)AfAm Est GFR (CKD-EPI)NonAf Glucose POC Glucose (mg/dL) 35 L Plasma Lactic Acid Leland Calcium Phosphorus Magnesium Total Bilirubin AST ALT Ammonia Total Protein Albumin Lipase Urine Protein 1+ H Urine Glucose (UA) Urine Ketones 2+ H Urine Blood Large H Urine WBC 10 H Urine Bacteria Rare H Hyaline Casts 4 H Urine Mucus Rare H 03/21/21 03/21/21 03/21/21 16:11 16:12 16:12 WBC 15.4 H RBC Hct RDW Plt Count 134 L Absolute Nucleated RBC Immature Gran # Neutrophils # 14.0 H Lymphocytes # 0.6 L Eosinophils # NRBC/100 WBC Diff PT INR APTT ABG pH ABG pCO2 ABG pO2 ABG HCO3 ABG Total CO2 ABG O2 Saturation Sodium 160 H Potassium 2.9 L Chloride 124 H Carbon Dioxide 19 L Anion Gap BUN 23 H Creatinine 1.12 H Est GFR (CKD-EPI)AfAm Est GFR (CKD-EPI)NonAf Glucose 157 H POC Glucose (mg/dL) 146 H Plasma Lactic Acid Leland Calcium Phosphorus 0.8 L* Magnesium 2.5 H Total Bilirubin 3.6 H AST 782 H ALT 218 H Ammonia Total Protein Albumin Lipase Urine Protein Urine Glucose (UA) Urine Ketones Urine Blood Urine WBC Urine Bacteria Hyaline Casts Urine Mucus 03/21/21 03/21/21 03/21/21 16:12 17:54 20:10 WBC RBC Hct RDW Plt Count Absolute Nucleated RBC Immature Gran # Neutrophils # Lymphocytes # Eosinophils # NRBC/100 WBC Diff PT INR APTT ABG pH ABG pCO2 34 L ABG pO2 197 H ABG HCO3 ABG Total CO2 ABG O2 Saturation 99.7 H Sodium Potassium Chloride Carbon Dioxide Anion Gap BUN Creatinine Est GFR (CKD-EPI)AfAm Est GFR (CKD-EPI)NonAf Glucose POC Glucose (mg/dL) 198 H Plasma Lactic Acid Leland 2.8 H* Calcium Phosphorus Magnesium Total Bilirubin AST ALT Ammonia Total Protein Albumin Lipase Urine Protein Urine Glucose (UA) Urine Ketones Urine Blood Urine WBC Urine Bacteria Hyaline Casts Urine Mucus 03/21/21 03/21/21 03/22/21 20:25 22:21 00:47 WBC RBC Hct RDW Plt Count Absolute Nucleated RBC Immature Gran # Neutrophils # Lymphocytes # Eosinophils # NRBC/100 WBC Diff PT INR APTT ABG pH ABG pCO2 ABG pO2 ABG HCO3 ABG Total CO2 ABG O2 Saturation Sodium Potassium Chloride Carbon Dioxide Anion Gap BUN Creatinine Est GFR (CKD-EPI)AfAm Est GFR (CKD-EPI)NonAf Glucose POC Glucose (mg/dL) 207 H 243 H 214 H Plasma Lactic Acid Leland Calcium Phosphorus Magnesium Total Bilirubin AST ALT Ammonia Total Protein Albumin Lipase Urine Protein Urine Glucose (UA) Urine Ketones Urine Blood Urine WBC Urine Bacteria Hyaline Casts Urine Mucus 03/22/21 03/22/21 03/22/21 02:43 05:00 05:00 WBC 11.8 H RBC 3.77 L Hct RDW Plt Count 82 L Absolute Nucleated RBC Immature Gran # Neutrophils # 9.0 H Lymphocytes # Eosinophils # NRBC/100 WBC Diff PT INR APTT ABG pH ABG pCO2 ABG pO2 ABG HCO3 ABG Total CO2 ABG O2 Saturation Sodium 146 H Potassium 3.1 L Chloride 114 H Carbon Dioxide Anion Gap BUN 19 H Creatinine Est GFR (CKD-EPI)AfAm Est GFR (CKD-EPI)NonAf Glucose 179 H POC Glucose (mg/dL) 201 H Plasma Lactic Acid Leland Calcium Phosphorus Magnesium Total Bilirubin 2.9 H AST 590 H ALT 192 H Ammonia Total Protein 5.4 L Albumin 3.0 L Lipase Urine Protein Urine Glucose (UA) Urine Ketones Urine Blood Urine WBC Urine Bacteria Hyaline Casts Urine Mucus 03/22/21 03/22/21 03/22/21 05:08 05:15 06:43 WBC RBC Hct RDW Plt Count Absolute Nucleated RBC Immature Gran # Neutrophils # Lymphocytes # Eosinophils # NRBC/100 WBC Diff PT INR APTT ABG pH 7.52 H ABG pCO2 32 L ABG pO2 ABG HCO3 27 H ABG Total CO2 28 H ABG O2 Saturation 98.5 H Sodium Potassium Chloride Carbon Dioxide Anion Gap BUN Creatinine Est GFR (CKD-EPI)AfAm Est GFR (CKD-EPI)NonAf Glucose POC Glucose (mg/dL) 181 H 189 H Plasma Lactic Acid Leland Calcium Phosphorus Magnesium Total Bilirubin AST ALT Ammonia Total Protein Albumin Lipase Urine Protein Urine Glucose (UA) Urine Ketones Urine Blood Urine WBC Urine Bacteria Hyaline Casts Urine Mucus Assessment and Plan Assessment: * Altered mental status due to multifactorial predominantly hepatic encpehalopathy, metabolic encephalopathy (hypoglycemia, and multiple electrolyte abnormality) and due to seizure * Reported seizure episode on presentation possibly provoked due to mulifactorial: (hypoglycemia, electrolyte imbalance and ? Irregular nodular enhancing structure at the right parietal region (Differential considerations include aneurysm with possible rupture, vascular malformation or mass effect) Rule out status epilepticus. * Irregular nodular enhancing structure at the right parietal region. Diff erential considerations include aneurysm with possible rupture, vascular malformation or mass effect that is reported on CTA head. 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 No acute intracranial abnormality. * Repeat CT of the head is reported as no significant interval change. Consider MRI of there is persistent concern. * CT angiography of the head was reported as no large vessel occlusion. Irregular nodular enhancing structure at the right parietal region. Differential considerations include aneurysm with possible rupture, vascular malformation or mass effect. MRI may be considered if indicated. * CT angiography of the neck was reported as no significant weight stenosis or occlusion. * I increased IV Keppra from 100mg every 12 hours to 1500mg every 12 hours (doese is 250mg qhs). I started the patient on IV Vimapt 100mg bid (home med is 200mg daily). She is on Topamax 25mg daily. I will give patient 2mg of ativan she she is having downward gaze deviation and if does not improve in 10-15 minute to give another 2mg. * Continue thiamine 100 mg IV daily * I'll will obtain a stat routine EEG. * I'll order a thiamine level, folate, vitamin B12 level, methylmalonic acid and homocysteine level. * Notified the primary team to add ceftriaxone meningeal coverage in addition to the vancomycin. * Because of this questionable AV malformation versus ruptured aneurysm as well as need for nursing home EEG we will transfer the patient's [facility] to a tertiary Center further evaluation (needs neurosurgical evaluation). * Recommend to keep the SBP in the mean time between 110 to 140. Will defer management to the ICU and primary team. * Recommend nephrology consultation because of the patient electrolyte imbalance. * Recommend infection disease consultation especially with low-grade fever and leukocytosis to rule out any other underlying infection. * Please avoid any further episode of hypogylcemia and will defer management to the primary team and ICU team. * Will defer the rest of medical management to the ICU and primary team. * I feel the patient home seizure medications are subtherapeutic in dose and on multiple medication which seems odd why she is on multiple and not maxing out on one of them before proceeding to the next. She is on Keppra (250mg qhs), Vmipat (200mg daily) and Topamax 25mg daily. I will attempt to contact the patient's significant other or family member for more information The patient condition is severely guarded. The plan is discussed with the patient's nurse, Primary team and ICU attending Thank you for the consultation. UPDATE: I attempted to contact the patient's significant other but no response. The patient was transferred to [facility]. Arvind Bae MD Neuro-Hospitalist Time with Patient: Greater than 30
[2021-03-22] MEDS: PROPRANOLOL 10 MG TAB PO SCH (09:41)
[2021-03-22] MEDS: LACTULOSE 20 GM/30 ML CUP PO SCH (09:42)
--- NOTE | 2021-03-22 09:44 | P.DS ---
Providers Date of admission: 03/20/21 23:11 Expected date of discharge: 03/22/21 Attending physician: Janice Bergeron MD Consults: 03/20/21 23:12 Consult Physician Routine Consulting Provider: Cuauhtemoc Dean Consult Reason/Comments: Chronic liver disease. Hyperammonemia Do you want consulting provider notified?: Yes 03/21/21 18:08 Consult Physician Routine Consulting Provider: Kev Epps Consult Reason/Comments: icu management Do you want consulting provider notified?: Already Contacted 03/21/21 19:48 Consult Physician Stat Consulting Provider: Arvind Bae Consult Reason/Comments: posturing, Na 160 Do you want consulting provider notified?: Yes 03/22/21 08:37 Consult Physician Routine Consulting Provider: Melinda Zaragoza Consult Reason/Comments: hypernatremia Do you want consulting provider notified?: Yes Primary care physician: Joe Murguia MD Hospital Course: Discharge Diagnosis: Acute metabolic encephalopthy Possibe subarachnoid hemorrhage and right pariatal lesion Possible seizure activity- keppra loaded Hepatic encephalopathy with know cirrhosis and continue alcohol use Hypernatremia, due to low solute intake Hypoglycemia corrected Acute acoholic hepatitis Fever, possibly neurogenic being covered for meningitis Metabolic acidosis Acute respiratory failure due to altered mentation OSMAR due to dehydration Thrombocytopenia Hypokalemia Hx of seizure disorder Hx of wernicke's encephalpoathy Hospital Course: Patient is a 55-year-old female with advanced cirrhosis secondary to alcohol abuse, hypertension, prior seizure disorder on 3 antiepileptic drugs, and thrombocytopenia who initially presented to the ER secondary to altered mentation. She had been having falls for approximately 2 weeks. He believes that her first drink was about a week ago after not having drank since November. In the ER she underwent a CT brain which showed an old infarct with encephalomalacia on the left posterior frontal lobe with no acute intracranial abnormality. Initial blood work showed white blood cell count of 14.8, platelets 131, INR 1.3, sodium 148, carbon dioxide 16, BUN 19, glucose 128, total bilirubin 3, AST 1950, ALT T209, ammonia 138. She was diagnosed with acute hepatic encephalopathy, metabolic acidosis, and hypernatremia. She was started on lactulose, thiamine, folic acid. GI was consulted. On the morning of 03/21 she was noted to have worsening altered mentation. She was not redirectable or following commands. She continued to have an elevated ammonia level. Lactulose was changed to every 2 hours and rectal. She was given a one- time dose of Haldol. Orders were given for a safety administrator. She was started on rifaximin main. was updated about her clinical condition. She was transferred to the ICU and was subsequently intubated. Attempts had been made to obtain IV access which ultimately required triple lumen being placed by critical care. She developed worsening hypernatremia and hypoglycemia after admission with a maximum sodium of 163 and required a dextrose drip to manage both her sodium and her hyperglycemia. Her keppra was incresaed and changed to IV due to concerns for possible underlying seizures. Her worsening mentation a repeat head CT was obtained on 03/22 and 244 which showed trace subarachnoid hemorrhage and patchy areas of low attenuation subtle developing infarct cannot be completely excluded. CTA of the head and neck at that time showed an irregular nodular enhancing structure at the right parietal region differential includes aneurysm, possible rupture, and vascular malformation. She was seen by neurology on the morning of 03/[address] results were noted. He immediately called me asking for transfer to a tertiary care facility. I had not seen the patient previouslt but on the morning of 03/22 I became involved in the patient's care to help facilitate transfer. He also recommended starting Rocephin for possible meningitis. I discussed the case initially with neuro ICU at [facility] who felt the patient was more appropriate meal for medical ICU at [facility]. Dr. Parkinson accepted the patient. Arrangements being made for transfer. Nephrology was consulted while waiting for transfer. Patient seen and examined at bedside. She is sedated with propofol. Vital signs reviewed and stable. General: ill appearing, moderate distress, appears at stated age] Derm: Multiple areas of ecchymosis on arms, hands, bilateral lower extremities and right orbital area, warm, dry Head: atraumatic, normocephalic, symmetric Eyes: not tracking eye movements, no lid lesion, anicteric sclera Mouth: no lip lesion, mucus membranes dry Cardiovascular: S1S2 reg, no murmur, positive posterior tibial pulse bilateral, Lungs: CTA bilateral, no rhonchi, no rales , no accessory muscle use Abdominal: soft, nontender to palpation, no guarding, no appreciable organomegaly Ext: no gross muscle atrophy, no edema, no contractures Neuro: negative dolls eyes - withdrawal to pain in all 4 extremities- rapid in legs and sluggish in arms -Set rate on vent 20 breathing at 22 - Pupils dilated but equal at 8 mm and sluggishly reactive Psych: sedated on vent A total of 65 minutes of time were spent preparing this complex discharge summary . Patient Condition at Discharge: Serious Plan - Discharge Summary Discharge Rx Participant: No New Discharge Prescriptions: No Action Cholecalciferol [Vitamin D3 (25 Mcg = 1000 Iu)] 1,000 unit PO DAILY Topiramate [Topamax] 25 mg PO DAILY Lacosamide [Vimpat] 200 mg PO DAILY Methocarbamol [Robaxin-750] 750 mg PO Q6H PRN PRN Reason: Muscle Pain Propranolol [Inderal] 10 mg PO DAILY levETIRAcetam [Keppra] 250 mg PO HS hydrOXYzine pamoate [Vistaril] 25 mg PO Q6H PRN PRN Reason: Anxiety Lactulose [Constulose] 20 gm PO BID PRN PRN Reason: Constipation Thera Beta 1 tab PO DAILY Melatonin 10 mg PO HS Sertraline HCl [Zoloft] 200 mg PO HS Folic Acid 0.4 mg PO DAILY Pantoprazole [Protonix] 40 mg PO DAILY@1200 Thiamine [Vitamin B-1] 100 mg PO DAILY Discharge Medication List Cholecalciferol [Vitamin D3 (25 Mcg = 1000 Iu)] 1,000 unit PO DAILY 06/19/14 [History] Lacosamide [Vimpat] 200 mg PO DAILY 07/29/18 [History] Topiramate [Topamax] 25 mg PO DAILY 07/29/18 [History] Folic Acid 0.4 mg PO DAILY 03/20/21 [History] Lactulose [Constulose] 20 gm PO BID PRN 03/20/21 [History] Melatonin 10 mg PO HS 03/20/21 [History] Methocarbamol [Robaxin-750] 750 mg PO Q6H PRN 03/20/21 [History] Pantoprazole [Protonix] 40 mg PO DAILY@1200 03/20/21 [History] Propranolol [Inderal] 10 mg PO DAILY 03/20/21 [History] Sertraline HCl [Zoloft] 200 mg PO HS 03/20/21 [History] Thera Beta 1 tab PO DAILY 03/20/21 [History] Thiamine [Vitamin B-1] 100 mg PO DAILY 03/20/21 [History] hydrOXYzine pamoate [Vistaril] 25 mg PO Q6H PRN 03/20/21 [History] levETIRAcetam [Keppra] 250 mg PO HS 03/20/21 [History] Follow up Appointment(s)/Referral(s): None,Stated [REFERRING] - 1-2 days
[2021-03-22] MEDS ORDERED: levETIRAcetam IV 1,500 MG in SALINE 1 100ML.BAG IV SCH (10:00)
--- NOTE | 2021-03-22 10:07 | P.CONS ---
History of Present Illness - Reason for Consult Consult date: 03/21/21 Decompensated cirrhosis, hepatic encephalopathy Requesting physician: Jr Buchanan - Chief Complaint Altered mental status - History of Present Illness 55-year-old female with multiple medical comorbidities including hypertension, alcoholic cirrhosis of the liver with encephalopathy, history of seizure disorder and thrombocytopenia likely secondary to portal hypertension who presented to the hospital due to concerns over altered mental status. The patient had been having frequent falls and worsening mentation over the past 2 weeks. She has a known history of decompensated alcohol cirrhosis of the liver and had previously stopped drinking however as per reports she began drinking again over the past 7-10 days. Of note history is been taken in discussion with the medical team and I'll review of the medical records the patient is unable to provided at this time. The patient was brought to the hospital for evaluation of her altered mentation and had a computed tomography scan of the brain which showed an old infarct and encephalomalacia on the left posterior frontal lobe with no acute intracranial pathology noted. She was found to have significant elevation in her ammonia 138 with total bilirubin 3, alkaline phosphatase 90, AST 950 and ALT 209. She was found to have a WBC of 16.5, hemoglobin 12.2 and platelet count of 113,000. Patient is seen on the medical floor receiving aggressive treatment with lactulose therapy for presumed hepatic encephalopathy. Review of Systems ROS unobtainable: due to mental status (Not the obtained and the patient due to mental status.) Past Medical History Past Medical History: Asthma, CVA/TIA, Hypertension, Pneumonia, Seizure Disorder Additional Past Medical History / Comment(s): acute wernicke encephalopathy, thiamine deficiency, cirrhosis, ETOH abuse, alcohol intoxication, acute pancreatitis, portal htn, hyperbilirubinemia, thrombocytopenia. Other hx: Jaundice, abdominal distention, seizure once, UTIs, kidney stones, sinus problems. History of Any Multi-Drug Resistant Organisms: None Reported Past Surgical History: Section, Tonsillectomy Additional Past Surgical History / Comment(s): 11/26/18 EGD, egd when a 7yr old child Past Anesthesia/Blood Transfusion Reactions: No Reported Reaction Additional Past Anesthesia/Blood Transfusion Reaction / Comm: CLAUSTERPHOBIA Past Psychological History: Anxiety Additional Psychological History / Comment(s): Pt resides with her spouse Smoking Status: Current every day smoker Past Alcohol Use History: Unable to Obtain, Daily Past Drug Use History: None Reported, Unable to Obtain - Past Family History Father Additional Family Medical History / Comment(s): [employer]. Father is 83 yrs old. Mother Family Medical History: Coronary Artery Disease (CAD), Diabetes Mellitus, Hypertension, Pneumonia, Thyroid Disorder Additional Family Medical History / Comment(s): Mother has 3 coronary stents, gout. She is 80yrs old. Medications and Allergies Home Medications Medication Instructions Recorded Confirmed Type Cholecalciferol [Vitamin D3 (25 1,000 unit PO DAILY 06/19/14 03/20/21 History Mcg = 1000 Iu)] Lacosamide [Vimpat] 200 mg PO DAILY 07/29/18 03/20/21 History Topiramate [Topamax] 25 mg PO DAILY 07/29/18 03/20/21 History Folic Acid 0.4 mg PO DAILY 03/20/21 03/20/21 History Lactulose [Constulose] 20 gm PO BID PRN 03/20/21 03/20/21 History Melatonin 10 mg PO HS 03/20/21 03/20/21 History Methocarbamol [Robaxin-750] 750 mg PO Q6H PRN 03/20/21 03/20/21 History Pantoprazole [Protonix] 40 mg PO DAILY@1200 03/20/21 03/20/21 History Propranolol [Inderal] 10 mg PO DAILY 03/20/21 03/20/21 History Sertraline HCl [Zoloft] 200 mg PO HS 03/20/21 03/20/21 History Thera Beta 1 tab PO DAILY 03/20/21 03/20/21 History Thiamine [Vitamin B-1] 100 mg PO DAILY 03/20/21 03/20/21 History hydrOXYzine pamoate [Vistaril] 25 mg PO Q6H PRN 03/20/21 03/20/21 History levETIRAcetam [Keppra] 250 mg PO HS 03/20/21 03/20/21 History Allergies Allergy/AdvReac Type Severity Reaction Status Date / Time No Known Allergies Allergy Verified 03/20/21 21:02 Physical Exam Vitals: Vital Signs Temp Pulse Pulse Resp BP BP Pulse Ox 03/21/21 08:00 98.1 F 64 16 116/69 92 L 03/21/21 03:00 100 18 03/21/21 02:00 100 18 100/61 93 L 03/21/21 00:48 101 H 18 111/70 95 03/20/21 20:57 99.7 F H 103 H 20 122/71 97 Intake and Output 03/20/21 03/21/21 03/21/21 22:59 06:59 14:59 Other: Voiding Method Diaper Diaper # Voids 1 # Bowel Movements 1 Weight 62.369 kg 62.369 kg On physical examination, patient appears comfortable in no apparent distress. HEAD: Normocephalic, atraumatic. EYES: Scleral icterus. No conjunctival injection. MOUTH: No lesions, tongue midline. NECK: Trachea midline, no gross abnormalities. CHEST: Clear to auscultation with no wheezing or rhonchi appreciated. HEART: Regular rate and rhythm. ABDOMEN: Soft, nontender to palpation. Bowel sounds are positive. No organomegaly. No guarding or rigidity. EXTREMITIES: No pedal edema. SKIN: No rashes, jaundice. NEUROLOGIC: Alert and oriented x0, unable to follow commands or respond appropriately to questioning. Results CBC & Chem 7: 03/22/21 05:00 03/22/21 05:00 Labs: Abnormal Lab Results - Last 24 Hours (Table) 03/20/21 03/20/21 03/20/21 Range/Units 20:57 21:23 21:23 WBC 14.8 H (3.8-10.6) k/uL RBC (4.10-5.20) X 10*6/uL Hct (37.2-46.3) % RDW (11.5-14.5) % Plt Count 131 L (150-450) k/uL Absolute Nucleated RBC (0.00-0.00) X 10*3/uL Immature Gran # (0.00-0.04) X 10*3/uL Neutrophils # 12.6 H (1.3-7.7) k/uL Eosinophils # (0.04-0.35) X 10*3/uL NRBC/100 WBC Diff (0.0-0.0) /100 WBCS PT 13.0 H (9.0-12.0) sec INR 1.3 H (<1.2) APTT 20.7 L (22.0-30.0) sec Sodium (137-145) mmol/L Chloride (98-107) mmol/L Carbon Dioxide (22-30) mmol/L BUN (7-17) mg/dL Glucose (74-99) mg/dL POC Glucose (mg/dL) 156 H (75-99) mg/dL Total Bilirubin (0.2-1.3) mg/dL AST (14-36) U/L ALT (4-34) U/L Ammonia (<30) umol/L Urine Protein (Negative) Urine Glucose (UA) (Negative) Urine Ketones (Negative) Urine Blood (Negative) Urine Mucus (None) /hpf 03/20/21 03/20/21 03/20/21 Range/Units 21:23 21:23 21:23 WBC (3.8-10.6) k/uL RBC (4.10-5.20) X 10*6/uL Hct (37.2-46.3) % RDW (11.5-14.5) % Plt Count (150-450) k/uL Absolute Nucleated RBC (0.00-0.00) X 10*3/uL Immature Gran # (0.00-0.04) X 10*3/uL Neutrophils # (1.3-7.7) k/uL Eosinophils # (0.04-0.35) X 10*3/uL NRBC/100 WBC Diff (0.0-0.0) /100 WBCS PT (9.0-12.0) sec INR (<1.2) APTT (22.0-30.0) sec Sodium 148 H (137-145) mmol/L Chloride 110 H (98-107) mmol/L Carbon Dioxide 16 L (22-30) mmol/L BUN 19 H (7-17) mg/dL Glucose 128 H (74-99) mg/dL POC Glucose (mg/dL) (75-99) mg/dL Total Bilirubin 3.0 H (0.2-1.3) mg/dL AST 950 H (14-36) U/L ALT 209 H (4-34) U/L Ammonia 138 H (<30) umol/L Urine Protein 1+ H (Negative) Urine Glucose (UA) 1+ H (Negative) Urine Ketones 4+ H (Negative) Urine Blood Large H (Negative) Urine Mucus Rare H (None) /hpf 05/03/20/21 03/21/21 Range/Units 22:41 23:58 05:56 WBC (3.8-10.6) k/uL RBC (4.10-5.20) X 10*6/uL Hct (37.2-46.3) % RDW (11.5-14.5) % Plt Count (150-450) k/uL Absolute Nucleated RBC (0.00-0.00) X 10*3/uL Immature Gran # (0.00-0.04) X 10*3/uL Neutrophils # (1.3-7.7) k/uL Eosinophils # (0.04-0.35) X 10*3/uL NRBC/100 WBC Diff (0.0-0.0) /100 WBCS PT (9.0-12.0) sec INR (<1.2) APTT (22.0-30.0) sec Sodium (137-145) mmol/L Chloride (98-107) mmol/L Carbon Dioxide (22-30) mmol/L BUN (7-17) mg/dL Glucose (74-99) mg/dL POC Glucose (mg/dL) 64 L 108 H 55 L (75-99) mg/dL Total Bilirubin (0.2-1.3) mg/dL AST (14-36) U/L ALT (4-34) U/L Ammonia (<30) umol/L Urine Protein (Negative) Urine Glucose (UA) (Negative) Urine Ketones (Negative) Urine Blood (Negative) Urine Mucus (None) /hpf 03/21/21 03/21/21 03/21/21 Range/Units 06:22 07:06 07:06 WBC 16.58 H (3.8-10.6) k/uL RBC 3.85 L (4.10-5.20) X 10*6/uL Hct 36.6 L (37.2-46.3) % RDW 14.8 H (11.5-14.5) % Plt Count 113 L (150-450) k/uL Absolute Nucleated RBC 0.07 H (0.00-0.00) X 10*3/uL Immature Gran # 0.07 H (0.00-0.04) X 10*3/uL Neutrophils # 13.96 H (1.3-7.7) k/uL Eosinophils # 0 L (0.04-0.35) X 10*3/uL NRBC/100 WBC Diff 0.4 H (0.0-0.0) /100 WBCS PT (9.0-12.0) sec INR (<1.2) APTT (22.0-30.0) sec Sodium (137-145) mmol/L Chloride (98-107) mmol/L Carbon Dioxide (22-30) mmol/L BUN (7-17) mg/dL Glucose (74-99) mg/dL POC Glucose (mg/dL) 193 H (75-99) mg/dL Total Bilirubin (0.2-1.3) mg/dL AST (14-36) U/L ALT (4-34) U/L Ammonia 138 H (<30) umol/L Urine Protein (Negative) Urine Glucose (UA) (Negative) Urine Ketones (Negative) Urine Blood (Negative) Urine Mucus (None) /hpf 03/21/21 03/21/21 03/21/21 Range/Units 10:03 10:24 10:54 WBC (3.8-10.6) k/uL RBC (4.10-5.20) X 10*6/uL Hct (37.2-46.3) % RDW (11.5-14.5) % Plt Count (150-450) k/uL Absolute Nucleated RBC (0.00-0.00) X 10*3/uL Immature Gran # (0.00-0.04) X 10*3/uL Neutrophils # (1.3-7.7) k/uL Eosinophils # (0.04-0.35) X 10*3/uL NRBC/100 WBC Diff (0.0-0.0) /100 WBCS PT (9.0-12.0) sec INR (<1.2) APTT (22.0-30.0) sec Sodium (137-145) mmol/L Chloride (98-107) mmol/L Carbon Dioxide (22-30) mmol/L BUN (7-17) mg/dL Glucose (74-99) mg/dL POC Glucose (mg/dL) 61 L 57 L 64 L (75-99) mg/dL Total Bilirubin (0.2-1.3) mg/dL AST (14-36) U/L ALT (4-34) U/L Ammonia (<30) umol/L Urine Protein (Negative) Urine Glucose (UA) (Negative) Urine Ketones (Negative) Urine Blood (Negative) Urine Mucus (None) /hpf 03/21/21 Range/Units 11:20 WBC (3.8-10.6) k/uL RBC (4.10-5.20) X 10*6/uL Hct (37.2-46.3) % RDW (11.5-14.5) % Plt Count (150-450) k/uL Absolute Nucleated RBC (0.00-0.00) X 10*3/uL Immature Gran # (0.00-0.04) X 10*3/uL Neutrophils # (1.3-7.7) k/uL Eosinophils # (0.04-0.35) X 10*3/uL NRBC/100 WBC Diff (0.0-0.0) /100 WBCS PT (9.0-12.0) sec INR (<1.2) APTT (22.0-30.0) sec Sodium (137-145) mmol/L Chloride (98-107) mmol/L Carbon Dioxide (22-30) mmol/L BUN (7-17) mg/dL Glucose (74-99) mg/dL POC Glucose (mg/dL) 56 L (75-99) mg/dL Total Bilirubin (0.2-1.3) mg/dL AST (14-36) U/L ALT (4-34) U/L Ammonia (<30) umol/L Urine Protein (Negative) Urine Glucose (UA) (Negative) Urine Ketones (Negative) Urine Blood (Negative) Urine Mucus (None) /hpf CT Scan - head: report reviewed Assessment and Plan (1) Acute hepatic encephalopathy Narrative/Plan: 55-year-old female with multiple medical comorbidities presenting to the hospital for evaluation of altered mental status and mechanical falls found to have severely elevated ammonia level of 138. Patient has a known history of decompensated alcoholic cirrhosis and had been abstinent from alcohol use for the past few months however resumed drinking over the past 7-10 days. She was found to have increasing confusion, altered mental status and frequent falls. She was found to have a ammonia level of 138 on presentation. Liver enzymes elevated and consistent with history of alcoholic cirrhosis and active alcohol use. Patient's medical history is completed by known history of seizure disorder for which she is currently on antiepileptic medications. She has been seen and evaluated by the neurology service. Current Visit: Yes Status: Acute Code(s): K72.00 - ACUTE AND SUBACUTE HE PATIC FAILURE WITHOUT COMA SNOMED Code(s): 73805756 (2) Chronic liver disease and cirrhosis Current Visit: Yes Status: Acute Code(s): K74.60 - UNSPECIFIED CIRRHOSIS OF LIVER; K76.9 - LIVER DISEASE, UNSPECIFIED SNOMED Code(s): 211337623 (3) Hyperammonemia Current Visit: Yes Status: Acute Code(s): E72.20 - DISORDER OF UREA CYCLE METABOLISM, UNSPECIFIED SNOMED Code(s): 4496708 (4) ETOH abuse Current Visit: No Status: Acute Code(s): F10.10 - ALCOHOL ABUSE, UNCOMPLICATED SNOMED Code(s): 36854194 (5) Elevated liver enzymes Current Visit: No Status: Acute Code(s): R74.8 - ABNORMAL LEVELS OF OTHER SERUM ENZYMES SNOMED Code(s): 730143939 Plan: Supportive care Nothing by mouth, secondary to altered mental status Continue aggressive lactulose therapy, by mouth as tolerated and rectal Continue empiric ceftriaxone therapy Appreciate recommendations from consulting services Continue monitor mental status, clinically and labs including CBC, BMP, LFTs and INR Alcohol abstinence Thank you for allowing us to participate in the care of the patient
[2021-03-22 10:19] LABS: INR 1.4 (<1.2); Partial Thromboplastin Time 28.8 sec (22.0-30.0); Prothrombin Time 14.6 sec (9.0-12.0)
[2021-03-22 10:22] LABS: African American GFR (CKD) >90 (>60 ml/min/1.73 sqM); Anion Gap 5 mmol/L; Blood Urea Nitrogen 17 mg/dL (7-17); Calcium 7.9 mg/dL (8.4-10.2); Carbon Dioxide 26 mmol/L (22-30); Chloride 113 mmol/L (98-107); Glucose 167 mg/dL (74-99); Non-African American GFR(CKD) 80 (>60 ml/min/1.73 sqM); Sodium 144 mmol/L (137-145)
[2021-03-22 10:23] LABS: Potassium 2.6 mmol/L (3.5-5.1)
[2021-03-22] MEDS: DEXTROSE 5% IN WATER 1,000 ML IV SCH ×2 (10:25→10:55)
[2021-03-22] MEDS: CHLORHEXIDINE GLUCONATE 15 ML CUP MUCOUS MEM SCH (10:39)
[2021-03-22] MEDS: PANTOPRAZOLE 40 MG/10 ML VIAL IVP SCH (10:42)
[2021-03-22] MEDS: TOPIRAMATE 25 MG TAB PO SCH (10:42)
[2021-03-22] MEDS: FOLIC ACID 1 MG TAB PO SCH (10:42)
[2021-03-22] MEDS ORDERED: NOREPINEPHRINE 32 MG in SODIUM CHLORIDE 0.9% 218 ML IV SCH (11:00)
[2021-03-22] MEDS ORDERED: POTASSIUM CHLORIDE 20 MEQ in WATER FOR INJECTION 1 100ML.BAG IVPB SCH (11:00)
[2021-03-22 11:15] LABS: Glucose,Whole Blood 156 mg/dL (75-99)
--- NOTE | 2021-03-22 12:10 | P.PN ---
Subjective Progress Note Date: 03/22/21 Principal diagnosis: Decompensated alcoholic cirrhosis of liver, hepatic encephalopathy, alternatives status Currently plan is for transfer of the patient to a neuro ICU at a tertiary referral center for further evaluation, agree with the plan. Patient is awaiting availability for transfer. Objective - Vital Signs Vital signs: Vital Signs Temp 99.2 F 03/22/21 04:00 Pulse 91 03/22/21 07:30 Resp 20 03/22/21 07:30 BP 88/65 03/22/21 06:30 Pulse Ox 97 03/22/21 07:30 Intake & Output 03/21/21 03/22/21 03/22/21 18:59 06:59 18:59 Intake Total 300 3525 Output Total 160 490 Balance 140 3035 Weight 64.9 kg Intake: IV 300 2525 Dextrose 10% in Water 1, 300 50 000 ml @ 100 mls/hr IV . Q10H TIM Rx#:[id number] Dextrose 5% in Water 1, 1775 000 ml @ 150 mls/hr IV . Q6H40M TIM Rx#:[id number] Potassium Phosphate 10 300 mmol In Sodium Chloride 0 .9% 100 ml @ 50 mls/hr IV Q2H TIM Rx#:[id number] Thiamine 100 mg In Sodium 50 Chloride 0.9% 50 ml @ 100 mls/hr IVPB DAILY@ 2100 TIM Rx#:[id number] Vancomycin 1,250 mg In 250 Sodium Chloride 0.9% 250 ml @ 125 mls/hr IVPB Q12H TIM Rx#:[id number] levETIRAcetam IV 1,500 mg 100 In Saline 1 100ml.bag @ 400 mls/hr IVPB ONCE [facility] Rx#:[id number] Intake, IV Titration 100 Amount propofoL 1,000 mg In 100 Empty Bag 1 bag @ Titrate IV .Q0M TIM Rx#: [id number] Other 900 Output: Urine 160 490 Other: Voiding Method Diaper Indwelling Catheter ABP, PAP, CO, CI - Last Documented Arterial Blood Pressure 94/54 - Labs CBC & Chem 7: 03/22/21 05:00 03/22/21 09:31 Labs: Abnormal Lab Results - Last 24 Hours (Table) 03/21/21 03/21/21 03/21/21 Range/Units 07:06 07:06 10:24 WBC 16.58 H (4.50-10.00) X 10*3/uL RBC 3.85 L (4.10-5.20) X 10*6/uL Hct 36.6 L (37.2-46.3) % RDW 14.8 H (11.5-14.5) % Plt Count 113 L (140-440) X 10*3/uL Absolute Nucleated RBC 0.07 H (0.00-0.00) X 10*3/uL Immature Gran # 0.07 H (0.00-0.04) X 10*3/uL Neutrophils # 13.96 H (1.80-7.70) X 10*3/uL Lymphocytes # (1.0-4.8) k/uL Eosinophils # 0 L (0.04-0.35) X 10*3/uL NRBC/100 WBC Diff 0.4 H (0.0-0.0) /100 WBCS ABG pH (7.35-7.45) ABG pCO2 (35-45) mmHg ABG pO2 (83-108) mmHg ABG HCO3 (21-25) mmol/L ABG Total CO2 (19-24) mmol/L ABG O2 Saturation (94-97) % Sodium 153 H (135-145) mmol/L Potassium (3.5-5.1) mmol/L Chloride 115 H (96-109) mmol/L Carbon Dioxide 19.6 L (21.6-31.8) mmol/L Anion Gap 18.40 H (4.00-12.00) mmol/L BUN (7-17) mg/dL Creatinine (0.52-1.04) mg/dL Est GFR (CKD-EPI)AfAm 58.9 L (60.0-200.0) Est GFR (CKD-EPI)NonAf 50.8 L (60.0-200.0) Glucose (70-110) mg/dL POC Glucose (mg/dL) 57 L (75-99) mg/dL Plasma Lactic Acid Leland (0.7-2.0) mmol/L Calcium 8.6 L (8.7-10.3) mg/dL Phosphorus (2.5-4.5) mg/dL Magnesium (1.6-2.3) mg/dL Total Bilirubin 2.3 H (0.2-1.2) mg/dL AST 748 H (13-35) U/L ALT 244 H (8-44) U/L Total Protein 5.8 L (6.2-8.2) g/dL Albumin (3.5-5.0) g/dL Lipase 69 H (14-63) U/L Urine Protein (Negative) Urine Ketones (Negative) Urine Blood (Negative) Urine WBC (0-5) /hpf Urine Bacteria (None) /hpf Hyaline Casts (0-2) /lpf Urine Mucus (None) /hpf 03/21/21 03/21/21 03/21/21 Range/Units 10:54 11:20 11:46 WBC (4.50-10.00) X 10*3/uL RBC (4.10-5.20) X 10*6/uL Hct (37.2-46.3) % RDW (11.5-14.5) % Plt Count (140-440) X 10*3/uL Absolute Nucleated RBC (0.00-0.00) X 10*3/uL Immature Gran # (0.00-0.04) X 10*3/uL Neutrophils # (1.80-7.70) X 10*3/uL Lymphocytes # (1.0-4.8) k/uL Eosinophils # (0.04-0.35) X 10*3/uL NRBC/100 WBC Diff (0.0-0.0) /100 WBCS ABG pH (7.35-7.45) ABG pCO2 (35-45) mmHg ABG pO2 (83-108) mmHg ABG HCO3 (21-25) mmol/L ABG Total CO2 (19-24) mmol/L ABG O2 Saturation (94-97) % Sodium (135-145) mmol/L Potassium (3.5-5.1) mmol/L Chloride (96-109) mmol/L Carbon Dioxide (21.6-31.8) mmol/L Anion Gap (4.00-12.00) mmol/L BUN (7-17) mg/dL Creatinine (0.52-1.04) mg/dL Est GFR (CKD-EPI)AfAm (60.0-200.0) Est GFR (CKD-EPI)NonAf (60.0-200.0) Glucose (70-110) mg/dL POC Glucose (mg/dL) 64 L 56 L 50 L (75-99) mg/dL Plasma Lactic Acid Leland (0.7-2.0) mmol/L Calcium (8.7-10.3) mg/dL Phosphorus (2.5-4.5) mg/dL Magnesium (1.6-2.3) mg/dL Total Bilirubin (0.2-1.2) mg/dL AST (13-35) U/L ALT (8-44) U/L Total Protein (6.2-8.2) g/dL Albumin (3.5-5.0) g/dL Lipase (14-63) U/L Urine Protein (Negative) Urine Ketones (Negative) Urine Blood (Negative) Urine WBC (0-5) /hpf Urine Bacteria (None) /hpf Hyaline Casts (0-2) /lpf Urine Mucus (None) /hpf 03/21/21 03/21/21 03/21/21 Range/Units 12:27 14:15 14:53 WBC (4.50-10.00) X 10*3/uL RBC (4.10-5.20) X 10*6/uL Hct (37.2-46.3) % RDW (11.5-14.5) % Plt Count (140-440) X 10*3/uL Absolute Nucleated RBC (0.00-0.00) X 10*3/uL Immature Gran # (0.00-0.04) X 10*3/uL Neutrophils # (1.80-7.70) X 10*3/uL Lymphocytes # (1.0-4.8) k/uL Eosinophils # (0.04-0.35) X 10*3/uL NRBC/100 WBC Diff (0.0-0.0) /100 WBCS ABG pH (7.35-7.45) ABG pCO2 (35-45) mmHg ABG pO2 (83-108) mmHg ABG HCO3 (21-25) mmol/L ABG Total CO2 (19-24) mmol/L ABG O2 Saturation (94-97) % Sodium 163 H* (135-145) mmol/L Potassium (3.5-5.1) mmol/L Chloride 119 H (96-109) mmol/L Carbon Dioxide (21.6-31.8) mmol/L Anion Gap 20.70 H (4.00-12.00) mmol/L BUN (7-17) mg/dL Creatinine (0.52-1.04) mg/dL Est GFR (CKD-EPI)AfAm 48.9 L (60.0-200.0) Est GFR (CKD-EPI)NonAf 42.2 L (60.0-200.0) Glucose 40 L* (70-110) mg/dL POC Glucose (mg/dL) 57 L 40 L (75-99) mg/dL Plasma Lactic Acid Leland (0.7-2.0) mmol/L Calcium (8.7-10.3) mg/dL Phosphorus (2.5-4.5) mg/dL Magnesium (1.6-2.3) mg/dL Total Bilirubin 3.6 H (0.2-1.2) mg/dL AST 829 H (13-35) U/L ALT 288 H (8-44) U/L Total Protein (6.2-8.2) g/dL Albumin (3.5-5.0) g/dL Lipase (14-63) U/L Urine Protein (Negative) Urine Ketones (Negative) Urine Blood (Negative) Urine WBC (0-5) /hpf Urine Bacteria (None) /hpf Hyaline Casts (0-2) /lpf Urine Mucus (None) /hpf 03/21/21 03/21/21 03/21/21 Range/Units 15:20 16:05 16:10 WBC (4.50-10.00) X 10*3/uL RBC (4.10-5.20) X 10*6/uL Hct (37.2-46.3) % RDW (11.5-14.5) % Plt Count (140-440) X 10*3/uL Absolute Nucleated RBC (0.00-0.00) X 10*3/uL Immature Gran # (0.00-0.04) X 10*3/uL Neutrophils # (1.80-7.70) X 10*3/uL Lymphocytes # (1.0-4.8) k/uL Eosinophils # (0.04-0.35) X 10*3/uL NRBC/100 WBC Diff (0.0-0.0) /100 WBCS ABG pH (7.35-7.45) ABG pCO2 33 L (35-45) mmHg ABG pO2 (83-108) mmHg ABG HCO3 20 L (21-25) mmol/L ABG Total CO2 (19-24) mmol/L ABG O2 Saturation (94-97) % Sodium (135-145) mmol/L Potassium (3.5-5.1) mmol/L Chloride (96-109) mmol/L Carbon Dioxide (21.6-31.8) mmol/L Anion Gap (4.00-12.00) mmol/L BUN (7-17) mg/dL Creatinine (0.52-1.04) mg/dL Est GFR (CKD-EPI)AfAm (60.0-200.0) Est GFR (CKD-EPI)NonAf (60.0-200.0) Glucose (70-110) mg/dL POC Glucose (mg/dL) 35 L (75-99) mg/dL Plasma Lactic Acid Leland (0.7-2.0) mmol/L Calcium (8.7-10.3) mg/dL Phosphorus (2.5-4.5) mg/dL Magnesium (1.6-2.3) mg/dL Total Bilirubin (0.2-1.2) mg/dL AST (13-35) U/L ALT (8-44) U/L Total Protein (6.2-8.2) g/dL Albumin (3.5-5.0) g/dL Lipase (14-63) U/L Urine Protein 1+ H (Negative) Urine Ketones 2+ H (Negative) Urine Blood Large H (Negative) Urine WBC 10 H (0-5) /hpf Urine Bacteria Rare H (None) /hpf Hyaline Casts 4 H (0-2) /lpf Urine Mucus Rare H (None) /hpf 03/21/21 03/21/21 03/21/21 Range/Units 16:11 16:12 16:12 WBC 15.4 H (4.50-10.00) X 10*3/uL RBC (4.10-5.20) X 10*6/uL Hct (37.2-46.3) % RDW (11.5-14.5) % Plt Count 134 L (140-440) X 10*3/uL Absolute Nucleated RBC (0.00-0.00) X 10*3/uL Immature Gran # (0.00-0.04) X 10*3/uL Neutrophils # 14.0 H (1.80-7.70) X 10*3/uL Lymphocytes # 0.6 L (1.0-4.8) k/uL Eosinophils # (0.04-0.35) X 10*3/uL NRBC/100 WBC Diff (0.0-0.0) /100 WBCS ABG pH (7.35-7.45) ABG pCO2 (35-45) mmHg ABG pO2 (83-108) mmHg ABG HCO3 (21-25) mmol/L ABG Total CO2 (19-24) mmol/L ABG O2 Saturation (94-97) % Sodium 160 H (135-145) mmol/L Potassium 2.9 L (3.5-5.1) mmol/L Chloride 124 H (96-109) mmol/L Carbon Dioxide 19 L (21.6-31.8) mmol/L Anion Gap (4.00-12.00) mmol/L BUN 23 H (7-17) mg/dL Creatinine 1.12 H (0.52-1.04) mg/dL Est GFR (CKD-EPI)AfAm (60.0-200.0) Est GFR (CKD-EPI)NonAf (60.0-200.0) Glucose 157 H (70-110) mg/dL POC Glucose (mg/dL) 146 H (75-99) mg/dL Plasma Lactic Acid Leland (0.7-2.0) mmol/L Calcium (8.7-10.3) mg/dL Phosphorus 0.8 L* (2.5-4.5) mg/dL Magnesium 2.5 H (1.6-2.3) mg/dL Total Bilirubin 3.6 H (0.2-1.2) mg/dL AST 782 H (13-35) U/L ALT 218 H (8-44) U/L Total Protein (6.2-8.2) g/dL Albumin (3.5-5.0) g/dL Lipase (14-63) U/L Urine Protein (Negative) Urine Ketones (Negative) Urine Blood (Negative) Urine WBC (0-5) /hpf Urine Bacteria (None) /hpf Hyaline Casts (0-2) /lpf Urine Mucus (None) /hpf 03/21/21 03/21/21 03/21/21 Range/Units 16:12 17:54 20:10 WBC (4.50-10.00) X 10*3/uL RBC (4.10-5.20) X 10*6/uL Hct (37.2-46.3) % RDW (11.5-14.5) % Plt Count (140-440) X 10*3/uL Absolute Nucleated RBC (0.00-0.00) X 10*3/uL Immature Gran # (0.00-0.04) X 10*3/uL Neutrophils # (1.80-7.70) X 10*3/uL Lymphocytes # (1.0-4.8) k/uL Eosinophils # (0.04-0.35) X 10*3/uL NRBC/100 WBC Diff (0.0-0.0) /100 WBCS ABG pH (7.35-7.45) ABG pCO2 34 L (35-45) mmHg ABG pO2 197 H (83-108) mmHg ABG HCO3 (21-25) mmol/L ABG Total CO2 (19-24) mmol/L ABG O2 Saturation 99.7 H (94-97) % Sodium (135-145) mmol/L Potassium (3.5-5.1) mmol/L Chloride (96-109) mmol/L Carbon Dioxide (21.6-31.8) mmol/L Anion Gap (4.00-12.00) mmol/L BUN (7-17) mg/dL Creatinine (0.52-1.04) mg/dL Est GFR (CKD-EPI)AfAm (60.0-200.0) Est GFR (CKD-EPI)NonAf (60.0-200.0) Glucose (70-110) mg/dL POC Glucose (mg/dL) 198 H (75-99) mg/dL Plasma Lactic Acid Leland 2.8 H* (0.7-2.0) mmol/L Calcium (8.7-10.3) mg/dL Phosphorus (2.5-4.5) mg/dL Magnesium (1.6-2.3) mg/dL Total Bilirubin (0.2-1.2) mg/dL AST (13-35) U/L ALT (8-44) U/L Total Protein (6.2-8.2) g/dL Albumin (3.5-5.0) g/dL Lipase (14-63) U/L Urine Protein (Negative) Urine Ketones (Negative) Urine Blood (Negative) Urine WBC (0-5) /hpf Urine Bacteria (None) /hpf Hyaline Casts (0-2) /lpf Urine Mucus (None) /hpf 03/21/21 03/21/21 03/22/21 Range/Units 20:25 22:21 00:47 WBC (4.50-10.00) X 10*3/uL RBC (4.10-5.20) X 10*6/uL Hct (37.2-46.3) % RDW (11.5-14.5) % Plt Count (140-440) X 10*3/uL Absolute Nucleated RBC (0.00-0.00) X 10*3/uL Immature Gran # (0.00-0.04) X 10*3/uL Neutrophils # (1.80-7.70) X 10*3/uL Lymphocytes # (1.0-4.8) k/uL Eosinophils # (0.04-0.35) X 10*3/uL NRBC/100 WBC Diff (0.0-0.0) /100 WBCS ABG pH (7.35-7.45) ABG pCO2 (35-45) mmHg ABG pO2 (83-108) mmHg ABG HCO3 (21-25) mmol/L ABG Total CO2 (19-24) mmol/L ABG O2 Saturation (94-97) % Sodium (135-145) mmol/L Potassium (3.5-5.1) mmol/L Chloride (96-109) mmol/L Carbon Dioxide (21.6-31.8) mmol/L Anion Gap (4.00-12.00) mmol/L BUN (7-17) mg/dL Creatinine (0.52-1.04) mg/dL Est GFR (CKD-EPI)AfAm (60.0-200.0) Est GFR (CKD-EPI)NonAf (60.0-200.0) Glucose (70-110) mg/dL POC Glucose (mg/dL) 207 H 243 H 214 H (75-99) mg/dL Plasma Lactic Acid Leland (0.7-2.0) mmol/L Calcium (8.7-10.3) mg/dL Phosphorus (2.5-4.5) mg/dL Magnesium (1.6-2.3) mg/dL Total Bilirubin (0.2-1.2) mg/dL AST (13-35) U/L ALT (8-44) U/L Total Protein (6.2-8.2) g/dL Albumin (3.5-5.0) g/dL Lipase (14-63) U/L Urine Protein (Negative) Urine Ketones (Negative) Urine Blood (Negative) Urine WBC (0-5) /hpf Urine Bacteria (None) /hpf Hyaline Casts (0-2) /lpf Urine Mucus (None) /hpf 03/22/21 03/22/21 03/22/21 Range/Units 02:43 05:00 05:00 WBC 11.8 H (4.50-10.00) X 10*3/uL RBC 3.77 L (4.10-5.20) X 10*6/uL Hct (37.2-46.3) % RDW (11.5-14.5) % Plt Count 82 L (140-440) X 10*3/uL Absolute Nucleated RBC (0.00-0.00) X 10*3/uL Immature Gran # (0.00-0.04) X 10*3/uL Neutrophils # 9.0 H (1.80-7.70) X 10*3/uL Lymphocytes # (1.0-4.8) k/uL Eosinophils # (0.04-0.35) X 10*3/uL NRBC/100 WBC Diff (0.0-0.0) /100 WBCS ABG pH (7.35-7.45) ABG pCO2 (35-45) mmHg ABG pO2 (83-108) mmHg ABG HCO3 (21-25) mmol/L ABG Total CO2 (19-24) mmol/L ABG O2 Saturation (94-97) % Sodium 146 H (135-145) mmol/L Potassium 3.1 L (3.5-5.1) mmol/L Chloride 114 H (96-109) mmol/L Carbon Dioxide (21.6-31.8) mmol/L Anion Gap (4.00-12.00) mmol/L BUN 19 H (7-17) mg/dL Creatinine (0.52-1.04) mg/dL Est GFR (CKD-EPI)AfAm (60.0-200.0) Est GFR (CKD-EPI)NonAf (60.0-200.0) Glucose 179 H (70-110) mg/dL POC Glucose (mg/dL) 201 H (75-99) mg/dL Plasma Lactic Acid Leland (0.7-2.0) mmol/L Calcium (8.7-10.3) mg/dL Phosphorus (2.5-4.5) mg/dL Magnesium (1.6-2.3) mg/dL Total Bilirubin 2.9 H (0.2-1.2) mg/dL AST 590 H (13-35) U/L ALT 192 H (8-44) U/L Total Protein 5.4 L (6.2-8.2) g/dL Albumin 3.0 L (3.5-5.0) g/dL Lipase (14-63) U/L Urine Protein (Negative) Urine Ketones (Negative) Urine Blood (Negative) Urine WBC (0-5) /hpf Urine Bacteria (None) /hpf Hyaline Casts (0-2) /lpf Urine Mucus (None) /hpf 03/22/21 03/22/21 03/22/21 Range/Units 05:08 05:15 06:43 WBC (4.50-10.00) X 10*3/uL RBC (4.10-5.20) X 10*6/uL Hct (37.2-46.3) % RDW (11.5-14.5) % Plt Count (140-440) X 10*3/uL Absolute Nucleated RBC (0.00-0.00) X 10*3/uL Immature Gran # (0.00-0.04) X 10*3/uL Neutrophils # (1.80-7.70) X 10*3/uL Lymphocytes # (1.0-4.8) k/uL Eosinophils # (0.04-0.35) X 10*3/uL NRBC/100 WBC Diff (0.0-0.0) /100 WBCS ABG pH 7.52 H (7.35-7.45) ABG pCO2 32 L (35-45) mmHg ABG pO2 (83-108) mmHg ABG HCO3 27 H (21-25) mmol/L ABG Total CO2 28 H (19-24) mmol/L ABG O2 Saturation 98.5 H (94-97) % Sodium (135-145) mmol/L Potassium (3.5-5.1) mmol/L Chloride (96-109) mmol/L Carbon Dioxide (21.6-31.8) mmol/L Anion Gap (4.00-12.00) mmol/L BUN (7-17) mg/dL Creatinine (0.52-1.04) mg/dL Est GFR (CKD-EPI)AfAm (60.0-200.0) Est GFR (CKD-EPI)NonAf (60.0-200.0) Glucose (70-110) mg/dL POC Glucose (mg/dL) 181 H 189 H (75-99) mg/dL Plasma Lactic Acid Leland (0.7-2.0) mmol/L Calcium (8.7-10.3) mg/dL Phosphorus (2.5-4.5) mg/dL Magnesium (1.6-2.3) mg/dL Total Bilirubin (0.2-1.2) mg/dL AST (13-35) U/L ALT (8-44) U/L Total Protein (6.2-8.2) g/dL Albumin (3.5-5.0) g/dL Lipase (14-63) U/L Urine Protein (Negative) Urine Ketones (Negative) Urine Blood (Negative) Urine WBC (0-5) /hpf Urine Bacteria (None) /hpf Hyaline Casts (0-2) /lpf Urine Mucus (None) /hpf Microbiology - Last 24 Hours (Table) 03/20/21 21:00 Blood Culture Gram Stain - Preliminary Blood 03/21/21 16:10 Urine Culture - Preliminary Urine,Catheterized 03/20/21 21:00 Blood Culture - Preliminary Blood 03/20/21 21:15 Blood Culture Gram Stain - Preliminary Blood 03/20/21 21:15 Blood Culture - Preliminary Blood Assessment and Plan (1) Acute hepatic encephalopathy Current Visit: Yes Status: Acute Code(s): K72.00 - ACUTE AND SUBACUTE HEPATIC FAILURE WITHOUT COMA SNOMED Code(s): 17105440 (2) Chronic liver disease and cirrhosis Current Visit: Yes Status: Acute Code(s): K74.60 - UNSPECIFIED CIRRHOSIS OF LIVER; K76.9 - LIVER DISEASE, UNSPECIFIED SNOMED Code(s): 108457819 (3) Hyperammonemia Current Visit: Yes Status: Acute Code(s): E72.20 - DISORDER OF UREA CYCLE METABOLISM, UNSPECIFIED SNOMED Code(s): 7175552 (4) ETOH abuse Current Visit: No Status: Acute Code(s): F10.10 - ALCOHOL ABUSE, UNCOMPLICATED SNOMED Code(s): 69944197 (5) Elevated liver enzymes Current Visit: No Status: Acute Code(s): R74.8 - ABNORMAL LEVELS OF OTHER SERUM ENZYMES SNOMED Code(s): 133337337
[2021-03-22 13:02] VITALS: BP 107/66; PULSE 83; TEMP 98.5
--- NOTE | 2021-03-22 13:36 | P.PN ---
Subjective Progress Note Date: 03/22/21 Principal diagnosis: Acute hypoxic respiratory failure secondary to acute hepatic encephalopathy This is a 55-year-old female with known history of advanced liver cirrhosis secondary to alcohol abuse, history of hypertension, seizure disorder, asthma, history of Wernicke his encephalopathy secondary to thiamine deficiency from cirrhosis. History of chronic and recurrent pancreatitis. History of portal hypertension. Chronic thrombocytopenia secondary to liver disease. Patient was admitted yesterday to [facility] from the emergency room. Patient presented with mental status change and supposedly the last drink of alcohol she had was over a week ago. Patient felt that she may have had a seizure and according to the ER physician note, could not give any history. Looking at the notes from the admitting physician, patient was obviously confused and could not give any meaningful information. Patient was admitted and she was noted to have significant abnormal labs including hypernatremia, on iron gap metabolic acidosis with normal lactic acid, she was also noted to have liver enzymes elevated and elevated ammonia level. And slightly elevated pa ncreatic enzymes. Patient was admitted, placed on lactulose, and patient was not taking anything by mouth. Today the patient was reported as more confused, agitated, thrashing in bed, and her mental status seems to be worsening obviously the patient had what seemed to be worsening hepatic encephalopathy patient was intubated, admitted to the ICU, and I was asked to see her on consultation. I was called about this patient because she had no venous access and multiple attempts were made by the hospitalist to place a right femoral triple-lumen catheter, and his attempts have failed. Shortly after, I came in, evaluated the patient, discussed her condition with the , and I was able to place a right femoral triple-lumen catheter easily with 1 attempt, and no complications. Patient was noted to be hypoglycemic on the floor, and she was placed on D10 infusing at 100 MLS per hour. She has sugar checks almost every 2 hours now. I cut down her dextrose 10-50 mL per hour. Reviewed her medications that she is presently on, patient is on dextrose, Pepcid, Haldol when necessary, lactulose, rifaximin, thiamine, she received earlier Rocephin and she is on vancomycin. CBC this afternoon showed leukocytosis with WBC count of 15.4 hemoglobin is 12.9 platelets are 1 54,000 ABG on mechanical ventilation showed a pO2 of 88 pCO2 of 33 pH of 7.38 and this was on the percent FiO2 tidal volume 400 PEEP of 5 and a rate of 20. Renal profile showed BUN of 23 creatinine 1.12. Blood sugar is 146. Lactic acid is 2.8. AST is 782 ALT is 218, total bilirubin is 3.6, INR was noted to be normal. 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 Acute abnormality was noted Patient was reevaluated today on 03/12/2021, patient remains intubated and mechanically ventilated. Her ventilator settings are assist control rate of 2012 volume is 400 FiO2 50% and I cut it down to 45% PEEP remains at 8. Her ABG showed a pO2 of 95 pCO2 of 32 pH of 7.52. Patient remains on 0.9 normal saline and fluid bolus was given this morning since her blood pressure was marginal lactulose is presently on hold because her ammonia level came down nicely over the last 12 hours, sodium is correcting nicely. However the patient had a CT angiogram of the head, and it questioned a subarachnoid hemorrhage or AVM, hence the patient was evaluated by neurology and he is recommending transferring the patient to [facility]. I requested urological sedation yesterday because the patient was having episodes of posturING,, and the neurologists in turn recommended CT angiogram of the brain. The urologist also recommended keep ing the patient on Keppra because of her seizure history. Labs today were reviewed INR is 1.4 potassium is 2.6 being corrected, sodium is down to 144. CPK is 5511. CBC is relatively normal WBC count is 11.8 hemoglobin is 12, liver enzymes are improving with AST of 590 ALT of 192 and ammonia level again is down to 27. Objective - Vital Signs Vital signs: Vital Signs Temp 98.5 F 03/22/21 11:30 Pulse 83 03/22/21 11:30 Resp 20 03/22/21 11:30 BP 107/66 03/22/21 11:30 Pulse Ox 98 03/22/21 11:30 Intake & Output 03/21/21 03/22/21 03/22/21 18:59 06:59 18:59 Intake Total 300 3625 1751.855 Output Total 160 490 125 Balance 140 3135 1626.855 Weight 64.9 kg Intake: IV 300 2525 1750 Dextrose 10% in Water 1, 300 50 000 ml @ 100 mls/hr IV . Q10H [facility] Rx#:[id number] Dextrose 5% in Water 1, 1775 000 ml @ 100 mls/hr IV . Q10H [facility] Rx#:[id number] Dextrose 5%-0.45% NaCl 1, 450 000 ml @ 100 mls/hr IV . Q10H [facility] Rx#:[id number] Lacosamide IV 100 mg In 50 Sodium Chloride 0.9% 50 ml @ 100 mls/hr IVPB BID [facility] Rx#:[id number] Potassium Chloride 20 meq 100 In Water For Injection 1 100ml.bag @ 50 mls/hr IVPB Q2H [facility] Rx#: [id number] Potassium Phosphate 10 300 mmol In Sodium Chloride 0 .9% 100 ml @ 50 mls/hr IV Q2H [facility] Rx#:[id number] Sodium Chloride 0.9% 1, 1000 000 ml @ 999 mls/hr IV . Q1H1M ONE Rx#:[id number] Thiamine 100 mg In Sodium 50 Chloride 0.9% 50 ml @ 100 mls/hr IVPB DAILY@ 2100 [facility] Rx#:[id number] Vancomycin 1,250 mg In 250 Sodium Chloride 0.9% 250 ml @ 125 mls/hr IVPB Q12H [facility] Rx#:[id number] cefTRIAXone 2 gm In 50 Sodium Chloride 0.9% 50 ml @ 100 mls/hr IVPB Q24HR [facility] Rx#:[id number] levETIRAcetam IV 1,500 mg 100 100 In Saline 1 100ml.bag @ 400 mls/hr IVPB ONCE [facility] Rx#:[id number] Intake, IV Titration 200 1.855 Amount Norepinephrine 32 mg In 0.608 Sodium Chloride 0.9% 218 ml @ 0.05 MCG/KG/MIN 1. 521 mls/hr IV .Q24H [facility] Rx#:[id number] propofoL 1,000 mg In 200 1.247 Empty Bag 1 bag @ Titrate IV .Q0M [facility] Rx#: [id number] Other 900 Output: Urine 160 490 125 Other: Voiding Method Diaper Indwelling Catheter Indwelling Catheter ABP, PAP, CO, CI - Last Documented Arterial Blood Pressure 98/55 - Exam Physical Exam: Revealed 55-year-old female intubated, mechanically ventilated, on propofol, sedated, in no distress at present. Head: Atraumatic, normocephalic, endotracheal tube and orogastric tubes are intact. HEENT:[Neck is supple.] [No neck masses.] [No thyromegaly.] [No JVD.] icteric sclerae noted. Chest: Symmetrical chest expansion, fine crackles at the bases no rhonchi no wheezes. Cardiac Exam: [Normal S1 and S2, no S3 gallop, no murmur.] Abdomen: [Soft, nontender, no megaly, no rebound, no guarding, normal bowel sounds.] Extremities: [No clubbing, no edema, no cyanosis.] However multiple bruises noted all over her lower extremities and on her upper extremities, probably related to trauma or falls. Neurological Exam: sedated, on propofol, pupils are equally reactive to light icteric sclerae noted Psychiatric: Could not be assessed patient is sedated on propofol. - Labs CBC & Chem 7: 03/22/21 05:00 03/22/21 09:31 Labs: Abnormal Lab Results - Last 24 Hours (Table) 03/21/21 03/21/21 03/21/21 Range/Units 14:15 14:53 15:20 WBC (3.8-10.6) k/uL RBC (3.80-5.40) m/uL Plt Count (150-450) k/uL Neutrophils # (1.3-7.7) k/uL Lymphocytes # (1.0-4.8) k/uL PT (9.0-12.0) sec INR (<1.2) ABG pH (7.35-7.45) ABG pCO2 (35-45) mmHg ABG pO2 (83-108) mmHg ABG HCO3 (21-25) mmol/L ABG Total CO2 (19-24) mmol/L ABG O2 Saturation (94-97) % Sodium 163 H* (135-145) mmol/L Potassium (3.5-5.1) mmol/L Chloride 119 H (96-109) mmol/L Carbon Dioxide (22-30) mmol/L Anion Gap 20.70 H (4.00-12.00) mmol/L BUN (7-17) mg/dL Creatinine (0.52-1.04) mg/dL Est GFR (CKD-EPI)AfAm 48.9 L (60.0-200.0) Est GFR (CKD-EPI)NonAf 42.2 L (60.0-200.0) Glucose 40 L* (70-110) mg/dL POC Glucose (mg/dL) 40 L 35 L (75-99) mg/dL Plasma Lactic Acid Leland (0.7-2.0) mmol/L Calcium (8.4-10.2) mg/dL Phosphorus (2.5-4.5) mg/dL Magnesium (1.6-2.3) mg/dL Total Bilirubin 3.6 H (0.3-1.2) mg/dL AST 829 H (13-35) U/L ALT 288 H (8-44) U/L Creatine Kinase (30-135) U/L Total Protein (6.3-8.2) g/dL Albumin (3.5-5.0) g/dL Urine Protein (Negative) Urine Ketones (Negative) Urine Blood (Negative) Urine WBC (0-5) /hpf Urine Bacteria (None) /hpf Hyaline Casts (0-2) /lpf Urine Mucus (None) /hpf 03/21/21 03/21/21 03/21/21 Range/Units 16:05 16:10 16:11 WBC (3.8-10.6) k/uL RBC (3.80-5.40) m/uL Plt Count (150-450) k/uL Neutrophils # (1.3-7.7) k/uL Lymphocytes # (1.0-4.8) k/uL PT (9.0-12.0) sec INR (<1.2) ABG pH (7.35-7.45) ABG pCO2 33 L (35-45) mmHg ABG pO2 (83-108) mmHg ABG HCO3 20 L (21-25) mmol/L ABG Total CO2 (19-24) mmol/L ABG O2 Saturation (94-97) % Sodium (135-145) mmol/L Potassium (3.5-5.1) mmol/L Chloride (96-109) mmol/L Carbon Dioxide (22-30) mmol/L Anion Gap (4.00-12.00) mmol/L BUN (7-17) mg/dL Creatinine (0.52-1.04) mg/dL Est GFR (CKD-EPI)AfAm (60.0-200.0) Est GFR (CKD-EPI)NonAf (60.0-200.0) Glucose (70-110) mg/dL POC Glucose (mg/dL) 146 H (75-99) mg/dL Plasma Lactic Acid Leland (0.7-2.0) mmol/L Calcium (8.4-10.2) mg/dL Phosphorus (2.5-4.5) mg/dL Magnesium (1.6-2.3) mg/dL Total Bilirubin (0.3-1.2) mg/dL AST (13-35) U/L ALT (8-44) U/L Creatine Kinase (30-135) U/L Total Protein (6.3-8.2) g/dL Albumin (3.5-5.0) g/dL Urine Protein 1+ H (Negative) Urine Ketones 2+ H (Negative) Urine Blood Large H (Negative) Urine WBC 10 H (0-5) /hpf Urine Bacteria Rare H (None) /hpf Hyaline Casts 4 H (0-2) /lpf Urine Mucus Rare H (None) /hpf 03/21/21 03/21/21 03/21/21 Range/Units 16:12 16:12 16:12 WBC 15.4 H (3.8-10.6) k/uL RBC (3.80-5.40) m/uL Plt Count 134 L (150-450) k/uL Neutrophils # 14.0 H (1.3-7.7) k/uL Lymphocytes # 0.6 L (1.0-4.8) k/uL PT (9.0-12.0) sec INR (<1.2) ABG pH (7.35-7.45) ABG pCO2 (35-45) mmHg ABG pO2 (83-108) mmHg ABG HCO3 (21-25) mmol/L ABG Total CO2 (19-24) mmol/L ABG O2 Saturation (94-97) % Sodium 160 H (135-145) mmol/L Potassium 2.9 L (3.5-5.1) mmol/L Chloride 124 H (96-109) mmol/L Carbon Dioxide 19 L (22-30) mmol/L Anion Gap (4.00-12.00) mmol/L BUN 23 H (7-17) mg/dL Creatinine 1.12 H (0.52-1.04) mg/dL Est GFR (CKD-EPI)AfAm (60.0-200.0) Est GFR (CKD-EPI)NonAf (60.0-200.0) Glucose 157 H (70-110) mg/dL POC Glucose (mg/dL) (75-99) mg/dL Plasma Lactic Acid Leland 2.8 H* (0.7-2.0) mmol/L Calcium (8.4-10.2) mg/dL Phosphorus 0.8 L* (2.5-4.5) mg/dL Magnesium 2.5 H (1.6-2.3) mg/dL Total Bilirubin 3.6 H (0.3-1.2) mg/dL AST 782 H (13-35) U/L ALT 218 H (8-44) U/L Creatine Kinase (30-135) U/L Total Protein (6.3-8.2) g/dL Albumin (3.5-5.0) g/dL Urine Protein (Negative) Urine Ketones (Negative) Urine Blood (Negative) Urine WBC (0-5) /hpf Urine Bacteria (None) /hpf Hyaline Casts (0-2) /lpf Urine Mucus (None) /hpf 03/21/21 03/21/21 03/21/21 Range/Units 17:54 20:10 20:25 WBC (3.8-10.6) k/uL RBC (3.80-5.40) m/uL Plt Count (150-450) k/uL Neutrophils # (1.3-7.7) k/uL Lymphocytes # (1.0-4.8) k/uL PT (9.0-12.0) sec INR (<1.2) ABG pH (7.35-7.45) ABG pCO2 34 L (35-45) mmHg ABG pO2 197 H (83-108) mmHg ABG HCO3 (21-25) mmol/L ABG Total CO2 (19-24) mmol/L ABG O2 Saturation 99.7 H (94-97) % Sodium (135-145) mmol/L Potassium (3.5-5.1) mmol/L Chloride (96-109) mmol/L Carbon Dioxide (22-30) mmol/L Anion Gap (4.00-12.00) mmol/L BUN (7-17) mg/dL Creatinine (0.52-1.04) mg/dL Est GFR (CKD-EPI)AfAm (60.0-200.0) Est GFR (CKD-EPI)NonAf (60.0-200.0) Glucose (70-110) mg/dL POC Glucose (mg/dL) 198 H 207 H (75-99) mg/dL Plasma Lactic Acid Leland (0.7-2.0) mmol/L Calcium (8.4-10.2) mg/dL Phosphorus (2.5-4.5) mg/dL Magnesium (1.6-2.3) mg/dL Total Bilirubin (0.3-1.2) mg/dL AST (13-35) U/L ALT (8-44) U/L Creatine Kinase (30-135) U/L Total Protein (6.3-8.2) g/dL Albumin (3.5-5.0) g/dL Urine Protein (Negative) Urine Ketones (Negative) Urine Blood (Negative) Urine WBC (0-5) /hpf Urine Bacteria (None) /hpf Hyaline Casts (0-2) /lpf Urine Mucus (None) /hpf 03/21/21 03/22/21 03/22/21 Range/Units 22:21 00:47 02:43 WBC (3.8-10.6) k/uL RBC (3.80-5.40) m/uL Plt Count (150-450) k/uL Neutrophils # (1.3-7.7) k/uL Lymphocytes # (1.0-4.8) k/uL PT (9.0-12.0) sec INR (<1.2) ABG pH (7.35-7.45) ABG pCO2 (35-45) mmHg ABG pO2 (83-108) mmHg ABG HCO3 (21-25) mmol/L ABG Total CO2 (19-24) mmol/L ABG O2 Saturation (94-97) % Sodium (135-145) mmol/L Potassium (3.5-5.1) mmol/L Chloride (96-109) mmol/L Carbon Dioxide (22-30) mmol/L Anion Gap (4.00-12.00) mmol/L BUN (7-17) mg/dL Creatinine (0.52-1.04) mg/dL Est GFR (CKD-EPI)AfAm (60.0-200.0) Est GFR (CKD-EPI)NonAf (60.0-200.0) Glucose (70-110) mg/dL POC Glucose (mg/dL) 243 H 214 H 201 H (75-99) mg/dL Plasma Lactic Acid Leland (0.7-2.0) mmol/L Calcium (8.4-10.2) mg/dL Phosphorus (2.5-4.5) mg/dL Magnesium (1.6-2.3) mg/dL Total Bilirubin (0.3-1.2) mg/dL AST (13-35) U/L ALT (8-44) U/L Creatine Kinase (30-135) U/L Total Protein (6.3-8.2) g/dL Albumin (3.5-5.0) g/dL Urine Protein (Negative) Urine Ketones (Negative) Urine Blood (Negative) Urine WBC (0-5) /hpf Urine Bacteria (None) /hpf Hyaline Casts (0-2) /lpf Urine Mucus (None) /hpf 03/22/21 03/22/21 03/22/21 Range/Units 05:00 05:00 05:08 WBC 11.8 H (3.8-10.6) k/uL RBC 3.77 L (3.80-5.40) m/uL Plt Count 82 L (150-450) k/uL Neutrophils # 9.0 H (1.3-7.7) k/uL Lymphocytes # (1.0-4.8) k/uL PT (9.0-12.0) sec INR (<1.2) ABG pH (7.35-7.45) ABG pCO2 (35-45) mmHg ABG pO2 (83-108) mmHg ABG HCO3 (21-25) mmol/L ABG Total CO2 (19-24) mmol/L ABG O2 Saturation (94-97) % Sodium 146 H (135-145) mmol/L Potassium 3.1 L (3.5-5.1) mmol/L Chloride 114 H (96-109) mmol/L Carbon Dioxide (22-30) mmol/L Anion Gap (4.00-12.00) mmol/L BUN 19 H (7-17) mg/dL Creatinine (0.52-1.04) mg/dL Est GFR (CKD-EPI)AfAm (60.0-200.0) Est GFR (CKD-EPI)NonAf (60.0-200.0) Glucose 179 H (70-110) mg/dL POC Glucose (mg/dL) 181 H (75-99) mg/dL Plasma Lactic Acid Leland (0.7-2.0) mmol/L Calcium (8.4-10.2) mg/dL Phosphorus (2.5-4.5) mg/dL Magnesium (1.6-2.3) mg/dL Total Bilirubin 2.9 H (0.3-1.2) mg/dL AST 590 H (13-35) U/L ALT 192 H (8-44) U/L Creatine Kinase (30-135) U/L Total Protein 5.4 L (6.3-8.2) g/dL Albumin 3.0 L (3.5-5.0) g/dL Urine Protein (Negative) Urine Ketones (Negative) Urine Blood (Negative) Urine WBC (0-5) /hpf Urine Bacteria (None) /hpf Hyaline Casts (0-2) /lpf Urine Mucus (None) /hpf 03/22/21 03/22/21 03/22/21 Range/Units 05:15 06:43 09:31 WBC (3.8-10.6) k/uL RBC (3.80-5.40) m/uL Plt Count (150-450) k/uL Neutrophils # (1.3-7.7) k/uL Lymphocytes # (1.0-4.8) k/uL PT (9.0-12.0) sec INR (<1.2) ABG pH 7.52 H (7.35-7.45) ABG pCO2 32 L (35-45) mmHg ABG pO2 (83-108) mmHg ABG HCO3 27 H (21-25) mmol/L ABG Total CO2 28 H (19-24) mmol/L ABG O2 Saturation 98.5 H (94-97) % Sodium (135-145) mmol/L Potassium (3.5-5.1) mmol/L Chloride (96-109) mmol/L Carbon Dioxide (22-30) mmol/L Anion Gap (4.00-12.00) mmol/L BUN (7-17) mg/dL Creatinine (0.52-1.04) mg/dL Est GFR (CKD-EPI)AfAm (60.0-200.0) Est GFR (CKD-EPI)NonAf (60.0-200.0) Glucose (70-110) mg/dL POC Glucose (mg/dL) 189 H (75-99) mg/dL Plasma Lactic Acid Leland (0.7-2.0) mmol/L Calcium (8.4-10.2) mg/dL Phosphorus (2.5-4.5) mg/dL Magnesium (1.6-2.3) mg/dL Total Bilirubin (0.3-1.2) mg/dL AST (13-35) U/L ALT (8-44) U/L Creatine Kinase 5511 H* (30-135) U/L Total Protein (6.3-8.2) g/dL Albumin (3.5-5.0) g/dL Urine Protein (Negative) Urine Ketones (Negative) Urine Blood (Negative) Urine WBC (0-5) /hpf Urine Bacteria (None) /hpf Hyaline Casts (0-2) /lpf Urine Mucus (None) /hpf 03/22/21 03/22/21 03/22/21 Range/Units 09:31 09:31 11:13 WBC (3.8-10.6) k/uL RBC (3.80-5.40) m/uL Plt Count (150-450) k/uL Neutrophils # (1.3-7.7) k/uL Lymphocytes # (1.0-4.8) k/uL PT 14.6 H (9.0-12.0) sec INR 1.4 H (<1.2) ABG pH (7.35-7.45) ABG pCO2 (35-45) mmHg ABG pO2 (83-108) mmHg ABG HCO3 (21-25) mmol/L ABG Total CO2 (19-24) mmol/L ABG O2 Saturation (94-97) % Sodium (135-145) mmol/L Potassium 2.6 L* (3.5-5.1) mmol/L Chloride 113 H (96-109) mmol/L Carbon Dioxide (22-30) mmol/L Anion Gap (4.00-12.00) mmol/L BUN (7-17) mg/dL Creatinine (0.52-1.04) mg/dL Est GFR (CKD-EPI)AfAm (60.0-200.0) Est GFR (CKD-EPI)NonAf (60.0-200.0) Glucose 167 H (70-110) mg/dL POC Glucose (mg/dL) 156 H (75-99) mg/dL Plasma Lactic Acid Leland (0.7-2.0) mmol/L Calcium 7.9 L (8.4-10.2) mg/dL Phosphorus (2.5-4.5) mg/dL Magnesium (1.6-2.3) mg/dL Total Bilirubin (0.3-1.2) mg/dL AST (13-35) U/L ALT (8-44) U/L Creatine Kinase (30-135) U/L Total Protein (6.3-8.2) g/dL Albumin (3.5-5.0) g/dL Urine Protein (Negative) Urine Ketones (Negative) Urine Blood (Negative) Urine WBC (0-5) /hpf Urine Bacteria (None) /hpf Hyaline Casts (0-2) /lpf Urine Mucus (None) /hpf Microbiology - Last 24 Hours (Table) 03/20/21 21:00 Blood Culture Gram Stain - Preliminary Blood 03/21/21 16:10 Urine Culture - Preliminary Urine,Catheterized 03/20/21 21:00 Blood Culture - Preliminary Blood 03/20/21 21:15 Blood Culture Gram Stain - Preliminary Blood 03/20/21 21:15 Blood Culture - Preliminary Blood Assessment and Plan Assessment: Impression: Acute hypoxic respiratory failure secondary to acute hepatic encephalopathy Acute hepatic encephalopathy secondary to history of liver cirrhosis related to alcoholism. Abnormal CT angiogram of the brain, possible subarachnoid hemorrhage or AVM he nce arrangements will be made to transfer the patient to a tertiary care center. That is being addressed by the neurologist and that being physician. History of seizure disorder. Hypoglycemia secondary to underlying liver disease and intake as well as acute on chronic pancreatitis Mild thrombocytopenia secondary to liver disease Hypernatremia secondary to free water deficit, improved and sodium today is 144 Elevated liver enzymes secondary to liver cirrhosis Elevated ammonia level secondary to liver cirrhosis and portal hypertension. Multiple areas of purpura and ecchymosis involving the skin likely related to underlying liver disease and trauma. Recommendation: Continue ventilatory support. Arrangements are being made to transfer the patient to a tertiary care center today by the admitting physician and by the neurologist. Continue Protonix. GI prophylaxis, however avoid heparin because of low platelets Hold lactulose for now since the patient is having significant diarrhea, and the ammonia level is down significantly. Continue to monitor liver enzymes and electrolytes. Free water flushes to be discontinued nutritional support to be addressed after transfer. At the tertiary care center. Prognosis is extremely poor and guarded. Discussed her condition with the neurologist on the case. Transfer plans are in progress. Critical care time is over 30 minutes. Time with Patient: Greater than 30
[2021-03-22 20:25] LABS: Folate, Serum 21.3 ng/mL
[2021-03-23] MEDS ORDERED: VANCOMYCIN TROUGH DUE 1 EACH MISC MISCELLANE ONE (11:00)
[2021-03-25 07:41] LABS: Methylmalonic Acid 0.26 umol/L (<0.40)
== END 2021-03-22 12:00 | disposition short-term general hospital (02) | DRG 64 ==
LOC: EC 20:54 → SUPCPDRO 20:54 → 4SSUR 23:11 → 2SICU 03-21 15:16
PROVIDERS: ADMIT Internal Medicine; ATTEND Internal Medicine
PROC: 5A1935Z Respiratory Ventilation, Less than 24 Consecutive Hours (ICD-10-PCS; principal; 2021-03-21)
PROC: 0BH17EZ Insertion of Endotracheal Airway into Trachea, Via Natural or Artificial Opening (ICD-10-PCS; 2021-03-21)
PROC: 06HM33Z Insertion of Infusion Device into Right Femoral Vein, Percutaneous Approach (ICD-10-PCS; 2021-03-21)
DX: I60.9 Nontraumatic subarachnoid hemorrhage, unspecified (principal); G93.41 Metabolic encephalopathy; K85.90 Acute pancreatitis without necrosis or infection, unspecified; J96.01 Acute respiratory failure with hypoxia; N17.9 Acute kidney failure, unspecified; E87.0 Hyperosmolality and hypernatremia; E87.2 Acidosis; K76.6 Portal hypertension; E51.9 Thiamine deficiency, unspecified; K86.1 Other chronic pancreatitis; K70.40 Alcoholic hepatic failure without coma; K86.81 Exocrine pancreatic insufficiency; K70.10 Alcoholic hepatitis without ascites; G40.909 Epilepsy, unspecified, not intractable, without status epilepticus; D69.59 Other secondary thrombocytopenia; K70.30 Alcoholic cirrhosis of liver without ascites; F10.20 Alcohol dependence, uncomplicated; Z20.822 Contact with and (suspected) exposure to COVID-19; G93.89 Other specified disorders of brain; I69.398 Other sequelae of cerebral infarction; E86.0 Dehydration; R73.9 Hyperglycemia, unspecified; R50.9 Fever, unspecified; Y90.0 Blood alcohol level of less than 20 mg/100 ml; E16.2 Hypoglycemia, unspecified; I10 Essential (primary) hypertension; E87.6 Hypokalemia; J45.909 Unspecified asthma, uncomplicated; F41.9 Anxiety disorder, unspecified; R29.6 Repeated falls; F17.200 Nicotine dependence, unspecified, uncomplicated; Z79.899 Other long term (current) drug therapy; Z87.01 Personal history of pneumonia (recurrent); Z87.442 Personal history of urinary calculi; Z87.440 Personal history of urinary (tract) infections; Z98.891 History of uterine scar from previous surgery; Z90.89 Acquired absence of other organs; Z98.890 Other specified postprocedural states; Z83.518 Family history of other specified eye disorder; Z82.49 Family history of ischemic heart disease and other diseases of the circulatory system; Z83.3 Family history of diabetes mellitus; Z83.49 Family history of other endocrine, nutritional and metabolic diseases; Z83.6 Family history of other diseases of the respiratory system; Z82.69 Family history of other diseases of the musculoskeletal system and connective tissue
CPT/HCPCS: 36415; 70450; 70496; 70498; 71045; 80048; 80053; 80306; 80320; 81001; 82140; 82550; 82607; 82746; 82747; 82805; 83090; 83605; 83690; 83735; 83921; 84100; 85025; 85610; 85730; 87040; 87086; 87635; 93005; 94002; 94003; 96365; 96375; 99285

== ENCOUNTER → 2021-05-14 | Outpatient (CLI) | payer BC ==
[2021-05-14 15:50] LABS: Albumin 3.9 g/dL (3.80-4.90); Albumin/Globulin Ratio 1.5 (1.60-3.17); Anion Gap 7.9 mmol/L (4.00-12.00); BUN/Creat Ratio 12.86 Ratio (12.00-20.00); Basophils # (A) 0.03 X 10*3/uL (0.00-0.10); Basophils % (A) 0.7 %; Carbon Dioxide 29.1 mmol/L (21.6-31.8); Chol/HDL Ratio 1.58; Eosinophils # (A) 0.06 X 10*3/uL (0.04-0.35); Eosinophils % (A) 1.4 %; Globulin 2.6 g/dL (1.6-3.3); HCT 40.4 % (37.2-46.3); HGB 13.5 g/dL (12.0-15.0); LDL Cholesterol,Calculated 23.2 mg/dL (0.0-131.0); Lymphocytes # (A) 1.24 X 10*3/uL (0.90-5.00); Lymphocytes % (A) 29.9 %; MCH 32.4 pg (27.0-32.0); MCHC 33.4 g/dL (32.0-37.0); MCV 96.9 fL (80.0-97.0); Mean Platelet Volume 11.5 fL (9.5-12.2); Monocytes # (A) 0.39 X 10*3/uL (0.20-1.00); Monocytes % (A) 9.4 %; Neutrophils # (A) 2.42 X 10*3/uL (1.80-7.70); Neutrophils % (A) 58.4 %; Non-African American GFR(CKD) 97.5 (60.0-200.0); Platelet Count 95 X 10*3/uL (140-440); RBC 4.17 X 10*6/uL (4.10-5.20); RDW 14.8 % (11.5-14.5); Total Bilirubin 1.5 mg/dL (0.3-1.2); Total Protein 6.5 g/dL (6.2-8.2); VLDL Calculation 14.8 mg/dL (5.00-40.00); WBC 4.15 X 10*3/uL (4.50-10.00)
== END | disposition home or self-care (01) ==
LOC: LABWHC1 10:26
PROVIDERS: ATTEND Psychiatry & Neurology Pain Medicine
DX: I63.9 Cerebral infarction, unspecified (principal)
CPT/HCPCS: 36415; 80053; 80061; 85025

== ENCOUNTER → 2022-02-16 | Outpatient (CLI) | payer BC, OTHER ==
--- NOTE | 2022-02-18 10:45 | MM ---
Reason for exam: screening (asymptomatic). Last mammogram was performed 5 years and 5 months ago. History: Family history of breast cancer in maternal aunt. Benign US left guided VAD of the left breast, December 11, 2010. Took hormonal contraceptives for 7 years beginning at age 15. Physical Findings: A clinical breast exam by your physician is recommended on an annual basis and results should be correlated with mammographic findings. MG Screening Mammo w CAD Bilateral CC and MLO view(s) were taken. Technologist: RT Jorgito (R)(M) Prior study comparison: September 10, 2016, bilateral MG diagnostic mammo w CAD [facility]. January 09, 2015, bilateral MG diagnostic mammo w CAD [facility]. The breast tissue is heterogeneously dense. This may lower the sensitivity of mammography. Previous mammotome biopsy in the left breast. No significant changes when compared with prior studies. ASSESSMENT: Benign, BI-RAD 2 RECOMMENDATION: Routine screening mammogram of both breasts in 1 year.
== END | disposition home or self-care (01) ==
LOC: RADMAMWWP 13:25
PROVIDERS: ATTEND Family Medicine
DX: Z12.31 Encounter for screening mammogram for malignant neoplasm of breast (principal)
CPT/HCPCS: 77067

== ENCOUNTER → 2023-02-17 | Outpatient (CLI) | payer OTHER ==
--- NOTE | 2023-02-18 08:05 | MM ---
Reason for Exam: Screening (asymptomatic). Last screening mammogram was performed 12 month(s) ago. Patient History: Menarche at age 13. First Full-Term at age 23. Postmenopausal. Hormonal Contraceptives, starting at age 15 for 7 years. 12/11/2010, Benign Core Biopsy on the left side. Maternal aunt had breast cancer. Risk Values: Lilian 5 year model risk: 1.4%. NCI Lifetime model risk: 8.3%. Prior Study Comparison: 01/09/2015 Bilateral Diagnostic Mammogram, [facility]. 09/10/2016 Bilateral Diagnostic Mammogram, [facility]. 02/16/2022 Bilateral Screening Mammogram, [facility]. Tissue Density: The breast tissue is heterogeneously dense. This may lower the sensitivity of mammography. Findings: Analyzed By CAD. Left breast biopsy clip. There is no suspicious group of microcalcifications or new suspicious mass in either breast. Overall Assessment: Negative, BI-RAD 1 Management: Screening Mammogram of both breasts in 1 year. A clinical breast exam by your physician is recommended on an annual basis and results should be correlated with mammographic findings. [facility] will attempt to contact patient to return for supplemental views and ultrasound if indicated. Electronically signed and approved by: Jairo Christensen DO
== END | disposition home or self-care (01) ==
LOC: RADMAMWWP 13:00
PROVIDERS: ATTEND Family Medicine
DX: Z12.31 Encounter for screening mammogram for malignant neoplasm of breast (principal); Z78.0 Asymptomatic menopausal state; Z80.3 Family history of malignant neoplasm of breast
CPT/HCPCS: 77067